=== PATIENT | female | born 2000 | race Caucasian/White ===

== ENCOUNTER → 2023-10-21 | Outpatient (CLI) | payer OTHER, SELFPAY ==
[2023-10-21 14:54] LABS: Absolute Lymphocyte Count 1.11 X10^3/uL (0.83-4.51); Absolute Neutrophil Count 4.9 X10^3/uL (2.0-7.7); Basophil# 0.02 X10^3/uL; Basophil% 0.3 % (0-1); Eosinophil# 0.06 X10^3/uL; Eosinophils% 0.9 % (0-5); Hematocrit 29.7 % (37-47); Hemoglobin 10.2 g/dL (12.0-15.0); Lymphocyte # 1.11 X10^3/ul (0.83-4.51); Lymphocyte % 16.8 % (19-41); Mean Corp Hgb Conc 34.3 g/dL (32-36); Mean Corpuscular Hgb 29.7 pg (27.0-32.0); Mean Corpuscular Volume 86.6 fL (81-99); Mean Platelet Vol. 9.8 fl (6.2-12.0); Monocyte# 0.49 X10^3/uL; Monocyte% 7.4 % (0-10); NRBC Flagged by Analyzer 0 % (0-5); Neutrophil % 74.3 % (47-70); Platelet Count 249 K/mm3 (150-450); RBC Distribution Width SD 43.6 fl (35.1-43.9); Red Blood Count 3.43 M/mm3 (4.2-5.4); White Blood Count 6.6 K/mm3 (4.4-11.0)
[2023-10-21 18:23] LABS: HIV - WCH Non-Reactive (Nonreactive); Hepatitis B Surface Antigen Non-Reactive (Nonreactive); Hepatitis C Antibody Non-Reactive (Nonreactive); Rubella IgG Equiv (Nonreactive); Syphilis Antibodies Non-reactive
[2023-10-24 22:06] LABS: Chlamydia By Nucleic Acid AMP Negative (Negative); Gonococcus By Nucleic Acid AMP Negative (Negative)
[2023-10-28 11:44] LABS: HPV Reflexed? NOT INDICATED
== END | disposition home or self-care (01) ==
PROVIDERS: Referring Provider Advanced Practice Midwife; Visit Provider Advanced Practice Midwife
DX: Z31.430 Encounter of female for testing for genetic disease carrier status for procreative management (principal); O09.90 Supervision of high risk pregnancy, unspecified, unspecified trimester; Z3A.00 Weeks of gestation of pregnancy not specified
CPT/HCPCS: 36415; 85025; 86703; 86762; 86780; 86803; 86850; 86900; 86901; 87086; 87340; 87491; 87591; 88175; G0145

== ENCOUNTER → 2024-02-14 | Outpatient (CLI) | payer OTHER, SELFPAY ==
[2024-02-14 12:17] LABS: Absolute Lymphocyte Count 1.38 X10^3/uL (0.83-4.51); Absolute Neutrophil Count 7.9 X10^3/uL (2.0-7.7); Basophil# 0.03 X10^3/uL; Basophil% 0.3 % (0-1); Eosinophil# 0.11 X10^3/uL; Eosinophils% 1.1 % (0-5); Hematocrit 28.9 % (37-47); Hemoglobin 9.8 g/dL (12.0-15.0); Lymphocyte # 1.38 X10^3/ul (0.83-4.51); Lymphocyte % 13.8 % (19-41); Mean Corp Hgb Conc 33.9 g/dL (32-36); Mean Corpuscular Hgb 32.2 pg (27.0-32.0); Mean Corpuscular Volume 95.1 fL (81-99); Mean Platelet Vol. 9.9 fl (6.2-12.0); Monocyte# 0.52 X10^3/uL; Monocyte% 5.2 % (0-10); NRBC Flagged by Analyzer 0 % (0-5); Neutrophil # 7.92 X10^3/uL (2.7-7.7); Platelet Count 239 K/mm3 (150-450); RBC Distribution Width CV 15.1 % (11.6-14.6); RBC Distribution Width SD 52.9 fl (35.1-43.9); Red Blood Count 3.04 M/mm3 (4.2-5.4)
[2024-02-14 12:36] LABS: Glucose Challenge Gest 1H 50g 132 mg/dL (70-140)
[2024-02-14 13:04] LABS: HIV - WCH Non-Reactive (Nonreactive); Syphilis Antibodies Non-reactive
== END | disposition home or self-care (01) ==
LOC: MFPLAB 09:53
PROVIDERS: Referring Provider Obstetrics & Gynecology; Visit Provider Obstetrics & Gynecology
DX: O09.90 Supervision of high risk pregnancy, unspecified, unspecified trimester (principal); Z13.1 Encounter for screening for diabetes mellitus; Z3A.00 Weeks of gestation of pregnancy not specified
CPT/HCPCS: 36415; 82950; 85025; 86703; 86780

== ENCOUNTER → 2024-03-30 | Outpatient (CLI) | payer OTHER, SELFPAY ==
[2024-03-30 17:09] LABS: Absolute Lymphocyte Count 1.29 X10^3/uL (0.83-4.51); Absolute Neutrophil Count 7.3 X10^3/uL (2.0-7.7); Basophil# 0.02 X10^3/uL; Basophil% 0.2 % (0-1); Eosinophil# 0.06 X10^3/uL; Eosinophils% 0.7 % (0-5); Hemoglobin 10.2 g/dL (12.0-15.0); Lymphocyte # 1.29 X10^3/ul (0.83-4.51); Lymphocyte % 14.2 % (19-41); Mean Corpuscular Volume 97.1 fL (81-99); Mean Platelet Vol. 10.4 fl (6.2-12.0); Monocyte% 4.4 % (0-10); NRBC Flagged by Analyzer 0 % (0-5); Neutrophil # 7.27 X10^3/uL (2.7-7.7); Neutrophil % 79.9 % (47-70); Platelet Count 217 K/mm3 (150-450); RBC Distribution Width CV 15.8 % (11.6-14.6); RBC Distribution Width SD 55.1 fl (35.1-43.9); Red Blood Count 3.09 M/mm3 (4.2-5.4); White Blood Count 9.1 K/mm3 (4.4-11.0)
== END | disposition home or self-care (01) ==
LOC: BWCLAB 13:21
PROVIDERS: Obstetrics & Gynecology; Referring Provider Advanced Practice Midwife; Visit Provider Advanced Practice Midwife
DX: O99.019 Anemia complicating pregnancy, unspecified trimester (principal); Z3A.00 Weeks of gestation of pregnancy not specified
CPT/HCPCS: 36415; 85025

== ENCOUNTER → 2024-04-12 | Outpatient (CLI) | payer OTHER, SELFPAY | END | disposition home or self-care (01) | PROVIDERS: Referring Provider Obstetrics & Gynecology; Visit Provider Obstetrics & Gynecology | DX: O09.92 Supervision of high risk pregnancy, unspecified, second trimester (principal); Z3A.00 Weeks of gestation of pregnancy not specified | CPT/HCPCS: 87077; 87081; 87186 ==

== ENCOUNTER → 2024-04-19 | Outpatient (CLI) | payer OTHER, SELFPAY ==
[2024-04-19 13:20] LABS: ROM Internal Control Test YES-OK TO RESULT pt. (Internal QC); ROM Patient Test Negative (Negative)
[2024-04-19 13:21] LABS: Record Kit Lot#, ROM+ K2871
== END | disposition home or self-care (01) ==
LOC: LABSPEC 12:49
PROVIDERS: Referring Provider Obstetrics & Gynecology; Visit Provider Obstetrics & Gynecology
DX: O26.899 Other specified pregnancy related conditions, unspecified trimester (principal); N89.8 Other specified noninflammatory disorders of vagina; Z3A.00 Weeks of gestation of pregnancy not specified; O99.891 Other specified diseases and conditions complicating pregnancy
CPT/HCPCS: 84112

== ENCOUNTER 2024-05-09 14:30 | Outpatient (CLI) | payer OTHER, SELFPAY ==
--- NOTE | 2024-05-09 14:50 | US_ITS ---
PROCEDURE: OB LIMITED WITH BIOMETRICS 05/09/2024 REASON FOR EXAM: DECREASE IN FUNDAL HEIGHT TODAY AT OB APPT TECHNIQUE: High resolution obstetric ultrasound performed using a 2D transducer. Standard views obtained, including biometry, anatomy survey, and Doppler studies. COMPARISON: None FINDINGS Number: 1 Position: Vertex Placental Position: Anterior Placental Abnormalities: No evidence of previa. DIMENSIONS: Biparietal Diameter: 8.6 cm/34 weeks 6 days Head Circumference: 32.3 cm/36 weeks 4 days Abdominal Circumference: 35.6 cm/39 weeks 4 days Femur Length: 7.4 cm/37 weeks 5 days ESTIMATED WEIGHT: 3456 g ESTIMATED WEIGHT PERCENTILE (24+ weeks): 37% ESTIMATED GESTATIONAL AGE: Baseline: 40 weeks 0 days By Ultrasound: 37 weeks 1 day ESTIMATED DATE OF DELIVERY: Baseline: 05/09/2024 By Ultrasound: 05/29/2024 BIOPHYSICAL ASSESSMENT: Amniotic Fluid Volume: Subjectively normal. Amniotic Fluid Index: 9.7 (8-24 cm normal range) Cardiac Motion: 143 beats per minute. (Average) Trunk and Limb Motion: Present. MATERNAL ANATOMY: Adnexa: Neither maternal ovary is successfully identified. Cervical Length (if measured): Not clearly visualized. US/OB Limited With Biometrics IMPRESSION: Single viable intrauterine fetus with a gestational age of 37 weeks 1 day and E DD of 05/29/2024. Reading Location: [facility]
[2024-05-09 15:29] VITALS: RESP 13; TEMP 36.7; O2SAT 100; BMI 30.2
[2024-05-09 15:29] LABS: ROM Internal Control Test YES-OK TO RESULT pt. (Internal QC); ROM Patient Test Negative (Negative); Record Kit Lot#, ROM+ K3294
--- NOTE | 2024-05-09 16:59 | OB.TRI.PN_ITS ---
Progress Notes Date of Service: 05/09/24 Progress Note: Patient presents for triage evaluation secondary to dec fm and low FH FHT: 140 Moderate variability reactive no decelerations category I tracing [place]: irregular Contractions Assessment and plan: 40 weeks amniotic membranes intact uterine size date discrepancy n growth US Reactive NST, reassuring maternal and status patient discharged to home to follow-up as scheduled See problem list details for additional plan information. Laboratory Studies: Laboratory Tests 05/09/24 Range/Units 14:50 Vag Amniotic Fld Detect Negative (Negative) Charges/Coding Procedures Urinary/Genital 52xxx-59xxx: 97725-72 non-stress test Interp
[2024-05-09 19:39] VITALS: BP 124/69; PULSE 85; RESP 16; TEMP 36.7
== END 2024-05-09 20:25 | disposition home or self-care (01) ==
LOC: WPOUT 14:32 → WP 14:33
PROVIDERS: Referring Provider Obstetrics & Gynecology; Visit Provider Obstetrics & Gynecology
DX: O36.8130 Decreased fetal movements, third trimester, not applicable or unspecified (principal); Z3A.40 40 weeks gestation of pregnancy
CPT/HCPCS: 59025; 59050; 76816; 84112; 99221; G0378

== ENCOUNTER → 2024-05-09 | Outpatient (CLI) | payer OTHER, SELFPAY ==
[2024-05-09 15:29] LABS: ROM Internal Control Test YES-OK TO RESULT pt. (Internal QC); ROM Patient Test Negative (Negative); Record Kit Lot#, ROM+ K3294
== END | disposition home or self-care (01) ==
PROVIDERS: Referring Provider Obstetrics & Gynecology; Visit Provider Obstetrics & Gynecology
DX: O26.899 Other specified pregnancy related conditions, unspecified trimester (principal); Z3A.00 Weeks of gestation of pregnancy not specified; O34.60 Maternal care for abnormality of vagina, unspecified trimester; N89.9 Noninflammatory disorder of vagina, unspecified
CPT/HCPCS: 84112

== ENCOUNTER 2024-05-16 07:00 | Inpatient (IN) | payer OTHER, SELFPAY ==
[2024-05-16] VITALS (59 sets, daily range): BP systolic 102–141; BP diastolic 54–84; PULSE 65–123; RESP 16–18; TEMP 36.1–36.7; O2SAT 91–100; BMI 31.0
[2024-05-16] MEDS: Lactated Ringers 1,000 ML 50 ML IV ×2 (08:10→16:39)
[2024-05-16 08:24] LABS: Absolute Lymphocyte Count 1.63 X10^3/uL (0.83-4.51); Absolute Neutrophil Count 8.3 X10^3/uL (2.0-7.7); Basophil# 0.04 X10^3/uL; Basophil% 0.4 % (0-1); Eosinophil# 0.09 X10^3/uL; Eosinophils% 0.8 % (0-5); Hematocrit 28.6 % (37-47); Lymphocyte # 1.63 X10^3/ul (0.83-4.51); Lymphocyte % 15.2 % (19-41); Mean Corpuscular Hgb 33.2 pg (27.0-32.0); Mean Platelet Vol. 9.9 fl (6.2-12.0); Monocyte# 0.57 X10^3/uL; Monocyte% 5.3 % (0-10); NRBC Flagged by Analyzer 0 % (0-5); Neutrophil # 8.33 X10^3/uL (2.7-7.7); Neutrophil % 77.8 % (47-70); Platelet Count 168 K/mm3 (150-450); RBC Distribution Width CV 14.8 % (11.6-14.6); RBC Distribution Width SD 50.8 fl (35.1-43.9); Red Blood Count 3.01 M/mm3 (4.2-5.4); White Blood Count 10.7 K/mm3 (4.4-11.0)
--- NOTE | 2024-05-16 08:28 | HP.PCM.OB_ITS ---
HPI - General General Date of Admission: 05/16/24 HPI Narrative ROSE MARY VARGAS, is a 24 F who presents for IOL secondary to postdates. Maternal Data Information ESTELA Calculator Estimated Delivery Date Method Current WG Current Estimate 05/09/24 Ultrasound #1 41w 0d Other Estimates 05/11/24 LMP (Certain) 40w 5d [facility] Home Medications ?Medication ?Instructions ?Recorded ?Last Taken ?Type multivit-min no.71-iron fum 28 1 cap PO DAILY pregnanc y 10/19/23 05/16/24 06:00 History mg-folate no.1 1 mg-dha 300 mg 1 cap capsule (PNV-[place]) ferrous gluconate 324 mg (37.5 mg 324 mg PO QDAY anemi a #90 tabs 02/14/24 05/15/24 17:00 Rx iron) tablet budesonide 90 mcg/actuation breath 2 inh inhalation BI D asthma #1 ea 03/14/24 Unknown Rx activated powder inhaler Allergy/AdvReac Type Severity Reaction Status Date / Time No Known Allergies Allergy Verified 05/16/24 07:53 Family History Grandmother Cancer Maternal- Gma's Twin Sister Brain Cancer Normal stillborn 30wks gestation Surgical History History of tonsillectomy and adenoidectomy Social History adopted: No household members: spouse current occupational status: employed 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 [employer] current occupational exposures/hazards: No pets and animals: Yes (Avoid litter box) pets and animals: cat(s) and dog(s) history of recent travel: Yes ( and [place]-August) out of state: Yes out of country: Yes sexually active: Yes Smoking Status: Former smoker quit date: 04/07/21 Electronic Cigarette Use: with nicotine alcohol intake: current alcohol intake frequency: holidays/special occasions only details: Not while substance use type: does not use well-balanced diet: daily or most days caffeine: No eating out: 1-3 times/week during the past year weight has: remained stable what type of physical activity do you participate in: none delphine/mandaen: Tenriism seatbelt use: sometimes do you feel safe at home: Yes additional social history: [employer] History 1 Elective abortions Hx Para 0 Spontaneous abortions Hx # Term Pregnancies Ectopic pregnancies Hx # Pregnancies Multiple births # of living children Visit Details Expected Delivery Route/Plan Labor Preferences- CB/BF classes: enc labor support person: [place] labor intervention preferences: [] pain management options preferred: limited if possible cut cord/dad catch: yes : yes PP control planned: discussed discussed possible routes of delivery and associated risks: [] special requests: [] Plans Covid status: [] Flu vaccine: given Tdap vaccine: [] Rhogam: NA LARC form signed: yes Problem list reviewed and updated with the most current plan of care details and appropriate orders placed. Relevant counseling for the gestational age provided. Continue routine care and follow up unless otherwise noted in visit notes/problem list details OB Flowsheet Initial Weight: 141 lb Date -?-?-?-?-?-?-?-?-?-?-?-?- EGA Weight BP Urine Prot -?-?-?-?-?-?-?-?-?-?-?-?- Glucose FHR FuHt Pres Dilation -?-?-?-?-?-?-?-?-?-?-?-?- Effaced St Visit Note 10/21/23 -?-?-?-?-?-?-?-?-?-?-?-?- 11w 2d 141 lb (+0 oz) 128/75 -?-?-?-?-?-?--?-?-?-?-?-?- 168 -?-?-?-?-?-?-?-?-?-?-?-?- KW- CRL cons wit h dates. Accepts NIPT and carrier. 11/18/23 -?-?-?-?-?-?-?-?-?-?-?-?- 15w 2d 143 lb (+2 lb) 109/72 Negative -?-?-?-?-?-?-?-?-?-?-?-?- Negative 150 -?-?-?-?-?-?-?-?-?-?-?-?- SM- co dysuria, culture sent 12/23/23 -?-?-?-?-?-?-?-?-?-?-?-?- 20w 2d 148 lb (+7 lb) 124/77 Negative -?-?-?-?-?-?-?-?-?-?-?-?- Negative 156 -?-?-?-?-?-?-?-?-?-?-?-?- LC- no vb/crampi ng. normal anatomy scan. sciatic discomfort- stretches recommended. 01/20/24 -?-?-?-?-?-?-?-?-?-?-?-?- 24w 2d 155 lb 6 oz (+14 lb 6 oz) 116/75 Negative -?-?-?-?-?-?-?-?-?-?-?-?- Negative 160 26 -?-?-?-?-?-?-?-?-?-?-?-?- JV- no lof, vagi nal bleeding, or dec fm. no complaints. 02/14/24 -?-?-?-?-?-?-?-?-?-?-?-?- 27w 6d 160 lb (+19 lb) 136/85 Negative -?-?-?-?-?-?-?-?-?-?-?-?- Negative 154 27 -?-?-?-?-?-?-?-?-?-?-?-?- -Good FM. Had one episode of pink tinged fluid with wiping 2 wk ago when in [place]. None since and reassured. Larc. 03/02/24 -?-?-?-?-?-?-?-?-?-?-?-?- 30w 2d 162 lb (+21 lb) 122/82 Negative -?-?-?-?-?-?-?-?-?-?-?-?- Negative 150 30 -?-?-?-?-?-?-?-?-?-?-?-?- KW- no vb/lof/ct x. good fm declines tdap. pepcid for acid reflux. 03/14/24 -?-?-?-?-?-?-?-?-?-?-?-?- 32w 0d 162 lb 8 oz (+21 lb 8 oz) 121/75 Negative -?-?-?-?-?-?-?-?-?-?-?-?- Negative 150 31 -?-?-?-?-?-?-?-?-?-?-?-?- SM- discussed an d asthma symptoms have worsened over the last months, using rescue inhaler daily and having SOB. will need to find PCP SELINA and started on budesonide n the meantime. 03/30/24 -?-?-?-?-?-?-?-?-?-?-?-?- 34w 2d 167 lb 4 oz (+26 lb 4 oz) 136/86 Negative -?-?-?-?-?-?-?-?-?-?-?-?- Negative 150 33 -?-?-?-?-?-?-?-?-?-?-?-?- KW- no vb/lof. g ood fm and noting some BH ctx. CBC today 04/12/24 -?-?-?-?-?-?-?-?-?-?-?-?- 36w 1d 170 lb 4 oz (+29 lb 4 oz) 112/74 Negative -?-?-?-?-?-?-?-?-?-?-?-?- Negative 140 36 Cephalic 0 .5 -?-?-?-?-?-?-?-?-?-?-?-?- SM- n ovb lof go od fm nor egular ctx gbs collected 04/19/24 -?-?-?-?-?--?-?-?-?-?-?-?- 37w 1d 172 lb 8 oz (+31 lb 8 oz) 119/77 Negative -?-?-?-?-?-?-?-?-?-?-?-?- Negative 146 37 Cephalic 0 .5 -?--?-?-?-?-?-?-?-?-?-?-?- JV- no lof, vagi nal bleeding, or dec fm. JV- no, vaginal bleeding, or dec fm. has some leaking fluid. JV- no, vaginal bleeding, or dec fm. has some leaking fluid.ROM + was negative 04/25/24 -?-?-?-?-?-?-?-?-?-?-?-?- 38w 0d 173 lb 6 oz (+32 lb 6 oz) 117/69 Negative -?-?-?-?-?-?-?-?-?-?-?-?- Negative 140 38 Cephalic 1 -?-?-?-?-?-?-?-?-?-?-?-?- SM- no vb lof go od fm n oreuglar ctx 05/01/24 -?-?-?-?-?-?-?-?-?-?-?-?- 38w 6d 176 lb (+35 lb) 114/76 Negative -?-?-?-?-?-?-?-?-?-?-?-?- Negative 130 40 Cephalic 1 -?-?-?-?-?-?-?-?-?-?-?-?- 30 -2 KW- no vb/ lof/ctx. good fm. discussed EPO and IOL at 41 weeks 05/09/24 -?-?-?-?-?-?-?-?-?-?-?-?- 40w 0d 178 lb 2 oz (+37 lb 2 oz) 131/82 -?-?-?-?-?-?-?-?-?-?-?-?- 145 37 Cephalic 1 -?-?-?-?-?-?-?-?-?-?-?-?- 30 -2 SM- no vb lof some dec fm no reuglar ctx fundal height dropped recommend US now and rom plus sent discussed FM precautions NST FHR Rate Baby A Baseline: 130 Variability:: Moderate Accelerations:: 15 x 15 Decelerations:: None NST Reactive:: Yes FHR Category:: Category I Uterine Activity:: irregular ROS Constitutional Constitutional: Reports systems reviewed and no addt'l complaints, except as documented Eyes Eyes: Denies change in vision ENT HEENT: Reports systems reviewed and no addt'l complaints, except as documented; Denies headache(s) Cardiovascular Cardiovascular: Reports systems reviewed and no addt'l complaints, except as documented; Denies chest pain or dyspnea Respiratory/Chest Respiratory/Chest: Reports systems reviewed and no addt'l complaints, except as documented Gastrointestinal Gastrointestinal: Reports systems reviewed and no addt'l complaints, except as documented; Denies abdominal pain Genitourinary Genitourinary: Reports systems reviewed and no addt'l complaints, except as documented, contractions Details: present (irregular) and movement Details: present; Denies dysuria or genital lesions Musculoskeletal Musculoskeletal: Reports systems reviewed and no addt'l complaints, except as documented Neurologic Neurologic: Reports systems reviewed and no addt'l complaints, except as documented Endocrine Endocrinology: Reports systems reviewed and no addt'l complaints, except as documented Vital Signs Vital Signs Vital Signs: Weight Weight: 180 lb 15.992 oz Body Mass Index (BMI) 31.0 Physical Exam Const alert, oriented x3, no apparent distress and healthy appearing HEENT normocephalic and moist oral mucous membranes Head and Scalp: atraumatic Neck full ROM, no lymphadenopathy, supple and thyroid normal General: trachea midline Lymph Lymphatic: no lymphadenopathy noted Chest inspection of chest normal Resp normal respiratory effort Cardio regular rate GI soft to palpation and non-tender GI Narrative: gravid Inspection: gravid external exam normal Manual OB Exam: estimated gestational size appropriate, presentation cephalic, dilated, effaced and station Extremity normal to inspection General Extremity: Negative for edema Skin no rashes or lesions noted Neuro no focal motor deficits and deep tendon reflexes 2+ bilaterally Motor Exam: strength 5/5 throughout and clonus absent Psych mental status grossly normal Labs Labs Labs: Blood Type O POSITIVE Antibody Screen NEGATIVE Hct 28.6 % (37-47) L Hgb 10.0 g/dL (12.0-15.0) L Obstetrics Ultrasound Syphilis Total Ab Non-reactive VZV IgG Antibody 219 index (Immune >165) Rubella IgG Antibody Equiv (Nonreactive) Hep Bs Antigen Non-Reactive (Nonreactive) Hepatitis C Antibody Non-Reactive (Nonreactive) Chlamydia DNA (SHARMILA) Negative (Negative) N.gonorrhoeae DNA (SHARMILA) Negative (Negative) HIV 1&2 Antibody Non-Reactive (Nonreactive) Glucose 1 Hr 50 gm 132 mg/dL (70-140) Assessment & Plan (1) Uterine size-date discrepancy, third trimester: COMMENT: nl growth and lakia (2) GBS (group B Streptococcus carrier), +RV culture, currently : COMMENT: PCN in labor (3) Anemia affecting : (4) Rubella non-immune status, antepartum: COMMENT: offer MMR PP (5) Supervision of high-risk : QUALIFIERS: Trimester: second trimester Qualified Code(s): O09.92 - Supervision of high risk , unspecified, second trimester COMMENT: PRR , ESTELA 05/11/24, girl [place] (6) : QUALIFIERS: Weeks of gestation: 40 weeks Qualified Code(s): Z3A.40 - 40 weeks gestation of COMMENT: NIPT low risk, carrier neg. , normal anatomy (7) Asthma: COMMENT: moderate persistent, needs to establish with PCP, will start on daily budesonide. albuterol rescue. (8) Encounter for induction of labor: (9) Post-dates : PLAN: Plan Patient presents IOL, plan management for with pit fb. Pain management: plans epidural. GBS pos plan pcn. Management of any complications: none I have reviewed the [facility] and made any clinically relevant updates.
[2024-05-16] MEDS: Penicillin G Pot 5,000,000 UNITS in 0.9% Normal Saline (100mL MB+) 100 ML 150 UNITS IV (08:36)
[2024-05-16] MEDS: Oxytocin 15 Units/NS 250ml 15 UNITS/250 ML IV.SOLN 2 UNITS IV (08:37)
[2024-05-16] MEDS: 0.9% Normal Saline Single 100 ML IV.SOLN. INTRA-UTER (08:40)
[2024-05-16 12:10] LABS: Syphilis Antibodies Nonreactive (Nonreactive)
[2024-05-16] MEDS: Penicillin G 3,000,000 Units 50 ML 100 UNITS IV ×2 (12:42→18:25)
[2024-05-16] MEDS: Ondansetron 4 MG/2 ML Vial IV (16:39)
[2024-05-16] MEDS: 0.9% Saline Lock 10 ML Syringe IV (16:39)
[2024-05-16] MEDS: fentaNYL-bupivacaine (epidural) 100 ML BAG EPIDURAL (17:20)
[2024-05-16] MEDS: Lactated Ringers 1,000 ML 200 ML IV (17:40)
[2024-05-16] MEDS: Oxytocin 15 Units/NS 250ml 15 UNITS/250 ML IV.SOLN 83 UNITS IV (21:41)
--- NOTE | 2024-05-16 21:42 | EX.PCM.OBVAG ---
Assessment & Plan (1) Vaginal delivery: COMMENT: SM IOL postdates 41 al (2) Post-dates : (3) Encounter for induction of labor: (4) Uterine size-date discrepancy, third trimester: COMMENT: nl growth and lakia (5) GBS (group B Streptococcus carrier), +RV culture, currently : COMMENT: PCN in labor (6) Anemia affecting : (7) Rubella non-immune status, antepartum: COMMENT: offer MMR PP (8) Supervision of high-risk : QUALIFIERS: Trimester: second trimester Qualified Code(s): O09.92 - Supervision of high risk , unspecified, second trimester COMMENT: PRR , ESTELA 05/11/24, girl [place] (9) : QUALIFIERS: Weeks of gestation: 40 weeks Qualified Code(s): Z3A.40 - 40 weeks gestation of COMMENT: NIPT low risk, carrier neg. , normal anatomy (10) Asthma: COMMENT: moderate persistent, needs to establish with PCP, will start on daily budesonide. albuterol rescue. Maternal Data Information ESTELA Calculator Estimated Delivery Date Method Current WG Current Estimate 05/09/24 Ultrasound #1 41w 0d Other Estimates 05/11/24 LMP (Certain) 40w 5d Vaginal Delivery Maternal Presentation Maternal Presentation: see assessment and plan Vaginal Delivery Information Procedure Performed: Spontaneous Vaginal Delivery Surgeon/Practitioner: Lyla Siddiqi Date of Procedure: 05/16/24 Pre-Procedure Diagnosis: see assessment and plan Post-Procedure Diagnosis: same Type of anesthesia: Epidural Estimated Blood Loss: 300 Findings Description of procedure: Patient began pushing and delivered the head in the ANDREW presentation. The head was delivered atraumatically and a loose nuchal cord ?1 was identified and easily reduced over the 's head. The anterior and posterior shoulders delivered without complication followed by the rest of the and the infant was placed on the maternal abdomen. Delayed cord clamping was employed for approximately 60 seconds. Cord was clamped and cut and gentle traction was applied to the cord and the placenta delivered spontaneously immediately following it was noted to be intact with three-vessel cord. The perineum and vagina were inspected and noted to have no significant laceration. EBL was 300. Patient and tolerated delivery well. Presentation: Vertex Placental Delivery Description: Spontaneous Specimen collected: Yes Description of specimen(s) removed: placenta Therapeutic Radiologist solid propellant processor: No Post Vaginal Deli Medications given after delivery: Other (pitocin) Complication Complications: No Multi Select Codes Urinary/Genital Urinary/Genital CPT Codes: 83893 Vaginal Delivery [facility]
--- NOTE | 2024-05-16 21:45 | PCM.DC ---
Discharge Instructions Diet Discharge Diet: No restrictions DC O2, CPAP, BIPAP needs Home O2 Discharge instructions: No Dressing / Incision Discharge Activity: Return to Normal Activity, May Not Drive (while taking narcotic pain medications.) and May Shower May resume sexual activity in: 4-6 weeks Dressing / Incision Call your doctor if your incision/area has: Continuous Slow Oozing, Sudden Increased Bleeding, Increased Pain/ Swelling, Increased Redness and Foul Smelling Discharge Follow Up Care Please Follow Up With: Lyla Siddiqi MD When: Call [phone] to make an appointment with your doctor in 6 weeks. If you had elevated blood pressure or 4th degree laceration, you will need to be seen in 2 weeks. Test Results: Test results from this visit will be discussed in further detail at your follow-up appointment, if applicable. Discharge Plan Admission Admit Date/Time: 05/16/24 07:00 Attending Provider: Lyla Siddiqi Primary Care Provider: Care Physician,Tory Primary Discharge Orders/Prescriptions Prescriptions: No Action PNV-[place] 28-1-300 mg capsule 1 cap PO DAILY budesonide 90 mcg/actuation aerosol powdr breath activated 2 inh inhalation BID Qty: 1 12RF ferrous gluconate 324 mg (37.5 mg iron) tablet 324 mg PO QDAY Qty: 90 1RF Referrals / Follow Up: Care Physician,No Primary [Primary Care Provider] - Disposition Disposition (needs filled in before D/C Order can be placed): Home, Self Care
[2024-05-16] MEDS: Acetaminophen 500 MG Tablet 1000 MG PO (22:17)
[2024-05-17] VITALS (9 sets, daily range): BP systolic 115–126; BP diastolic 62–82; PULSE 75–93; RESP 16; TEMP 36.3–37.4; O2SAT 79–99
--- NOTE | 2024-05-17 07:11 | PCM.PN.OB ---
Subjective Subjective Patient doing well without complaints. Tolerating PO. Ambulating and voiding without difficulty. Feeding well. Denies chest pain, shortness of breath, calf pain/swelling, fevers, chills, lightheadedness. Objective Data Objective Data Vital Signs: Vital Signs Temp Pulse Resp BP Pulse Ox O2 Del Method 97.3 F L 89 16 115/62 99 Room Air 05/17/24 03:10 05/17/24 03:10 05/17/24 03:10 05/17/24 03:10 05/17/24 03:10 05/17/24 03:10 Oxygen Delivery Method Room Air Weight: 180 lb 15.992 oz Body Mass Index (BMI) 31.0 Intake & Output: Intake and Output for Last 24 Hours 05/15/24 05/16/24 05/17/24 23:59 23:59 23:59 Intake Total 3093.67 / 3093.67 250 / 250 Output Total 300 / 300 1300 / 1300 Balance 2793.67 / 2793.67 -1050 / -1050 Lab / Micro Data 05/16/24 08:10 Labs: Laboratory Results - last 24 hr 05/16/24 08:10: WBC 10.7, RBC 3.01 L, Hgb 10.0 L, Hct 28.6 L, MCV 95.0, MCH 33.2 H, MCHC 35.0, RDW Std Deviation 50.8 H, RDW Coeff of [place] 14.8 H, Plt Count 168, MPV 9.9, Immature Gran % (Auto) 0.500, Neut % (Auto) 77.8 H, Lymph % (Auto) 15.2 L, [place] % (Auto) 5.3, Eos % (Auto) 0.8, Baso % (Auto) 0.4, Absolute Neuts (auto) 8.3 H, Absolute Lymphs (auto) 1.63, Nucleated RBC % 0, Syphilis Total Ab Nonreactive, Blood Type O POSITIVE, Antibody Screen NEGATIVE ROS Constitutional Constitutional: Denies chills, fatigue, fever(s), poor appetite or weakness Eyes Eyes: Denies blurry vision, change in vision, seeing flashes or spots in vision ENT HEENT: Denies dizziness, headache(s), loss taste/smell or sore throat Cardiovascular Cardiovascular: Denies chest pain, dizziness, dyspnea, irregular heart rhythm, palpitations or rapid heart rate Respiratory/Chest Respiratory/Chest: Denies chest tightness, cough, dyspnea or breast pain Gastrointestinal Gastrointestinal: Denies abdominal pain, constipation or vomiting Genitourinary Genitourinary: Denies dysuria or flank pain Musculoskeletal Musculoskeletal: Denies difficulty walking, joint pain, limited range of motion or numbness Neurologic Neurologic: Denies abnormal movements, abnormal speech, dizziness, numbness, seizure-like activity or syncope Psychiatric Psychiatric: Denies anxiety, behavioral changes, change in appetite, confusion, depression or suicidal thoughts Physical Exam Const alert, oriented x3 and no apparent distress General Appearance: cooperative and comfortable Resp normal respiratory effort Cardio regular rate GI normal to inspection, nondistended, normoactive bowel sounds GI Narrative: uterus is firm below umbilicus Palpation: soft Back/Spine no CVA tenderness and thoraco-lumbar ROM normal Extremity normal to inspection, no clubbing, cyanosis or edema, no calf tenderness and no pedal edema Psych mental status grossly normal, thought process normal, cooperative, affect normal, speech normal, activity/motor behavior normal, denies homicidal ideation and denies suicidal ideation Assessment & Plan (1) Vaginal delivery: COMMENT: SM IOL postdates 41 al (2) Post-dates : (3) Encounter for induction of labor: (4) Uterine size-date discrepancy, third trimester: COMMENT: nl growth and lakia (5) GBS (group B Streptococcus carrier), +RV culture, currently : COMMENT: PCN in labor (6) Anemia affecting : (7) Rubella non-immune status, antepartum: COMMENT: offer MMR PP (8) Supervision of high-risk : QUALIFIERS: Trimester: second trimester Qualified Code(s): O09.92 - Supervision of high risk , unspecified, second trimester COMMENT: PRR , ESTELA 05/11/24, girl [place] (9) : QUALIFIERS: Weeks of gestation: 40 weeks Qualified Code(s): Z3A.40 - 40 weeks gestation of COMMENT: NIPT low risk, carrier neg. , normal anatomy (10) Asthma: COMMENT: moderate persistent, needs to establish with PCP, will start on daily budesonide. albuterol rescue. PLAN: Plan s/p PPD # 1 1. routine post delivery care 2. breast feeding- support given 3. rh positive 4. rubella non- immune- to vaccinate prior to discharge
[2024-05-18 01:20] VITALS: BP 120/74; PULSE 81; RESP 16; TEMP 36.7; O2SAT 98
[2024-05-18 01:22] VITALS: BP 120/74; PULSE 74
[2024-05-18 09:03] VITALS: BP 121/72; PULSE 78; RESP 18; TEMP 36.7; O2SAT 97
--- NOTE | 2024-05-18 09:22 | PCM.DC.SUM ---
Providers Date of Admission: 05/16/24 Primary Care Physician: No Primary Care Phys Reason For Visit: VAG Diagnosis Discharge Diagnosis (1) Vaginal delivery: Status: Acute Code(s): O80 - Encounter for full-term uncomplicated delivery (2) Post-dates : Status: Acute Code(s): O48.0 - Post-term (3) Encounter for induction of labor: Status: Acute Code(s): Z34.90 - Encounter for supervision of normal , unspecified, unspecified trimester (4) Uterine size-date discrepancy, third trimester: Status: Acute Code(s): O26.843 - Uterine size-date discrepancy, third trimester (5) GBS (group B Streptococcus carrier), +RV culture, currently : Status: Acute Code(s): O99.820 - Streptococcus B carrier state complicating (6) Anemia affecting : Status: Acute Code(s): O99.019 - Anemia complicating , unspecified trimester (7) Rubella non-immune status, antepartum: Status: Acute Code(s): O09.899 - Supervision of other high risk pregnancies, unspecified trimester; Z28.39 - Other underimmunization status (8) Supervision of high-risk : Status: Acute Code(s): O09.90 - Supervision of high risk , unspecified, unspecified trimester Qualifiers: Trimester: second trimester Qualified Code(s): O09.92 - Supervision of high risk , unspecified, second trimester (9) : Status: Acute Code(s): Z34.90 - Encounter for supervision of normal , unspecified, unspecified trimester Qualifiers: Weeks of gestation: 40 weeks Qualified Code(s): Z3A.40 - 40 weeks gestation of (10) Asthma: Status: Acute Code(s): J45.909 - Unspecified asthma, uncomplicated Plan s/p PPD # 1 1. routine post delivery care 2. breast feeding- support given 3. rh positive 4. rubella non- immune- to vaccinate prior to discharge Medications at Discharge Home Medications multivit-min no.71-iron fum 28 mg-folate no.1 1 mg-dha 300 mg capsule (PNV-[place]) 1 cap PO DAILY 10/19/23 ferrous gluconate 324 mg (37.5 mg iron) tablet 324 mg PO QDAY anemia #90 tabs 02/14/24 budesonide 90 mcg/actuation breath activated powder inhaler 2 inh inhalation BID asthma #1 ea 03/14/24 Hospital Course Operations None Procedures - (vaginal delivery ) Summary of Care Provided Minutes Spent on Discharge: 10 Hospital Course: The patient was admitted on 05/16/24 for IOL. She delivered vaginally on 05/16/24. She recovered well on post day #1 and required minimal assistance with breast feeding and pain management. On day #2 she was discharged to home in stable condition. Physical Exam Const alert, oriented x3 and no apparent distress General Appearance: cooperative and comfortable Resp normal respiratory effort Cardio regular rate GI normal to inspection, nondistended, normoactive bowel sounds GI Narrative: uterus is firm below umbilicus Palpation: soft Back/Spine no CVA tenderness and thoraco-lumbar ROM normal Extremity normal to inspection, no clubbing, cyanosis or edema, no calf tenderness and no pedal edema Psych mental status grossly normal, thought process normal, cooperative, affect normal, speech normal, activity/motor behavior normal, denies homicidal ideation and denies suicidal ideation Weight / BMI Weight Weight: 180 lb 15.992 oz Body Mass Index (BMI) 31.0 ABG / Lab / Microbiology Data 05/16/24 08:10 D/C Instructions Discharge Diet: No restrictions May resume sexual activity in: 4-6 weeks Call your doctor if your incision/area has: Continuous Slow Oozing, Sudden Increased Bleeding, Increased Pain/ Swelling, Increased Redness and Foul Smelling Discharge DC O2, CPAP, BIPAP Needs Home O2 Discharge instructions: No Please Follow Up With: Lyla Siddiqi MD When: Call [phone] to make an appointment with your doctor in 6 weeks. If you had elevated blood pressure or 4th degree laceration, you will need to be seen in 2 weeks. Meaningful Use Info Meaningful Use Meaningful Use Diagnoses (Choose all that apply): None applicable Ischemic Stroke Statin Dosing Therapy Reference: STATIN DOSE THERAPY REFERENCE: * Patients > 75 years receive moderate or high dose statin therapy. * Patients 75 years or YOUNGER should receive HIGH intensity statin dose unless contraindicated. You will be required to document reason for non-treatment if statin daily dose does not meet guidelines. HIGH DOSE STATIN THERAPY DAILY Atorvastatin > than or = to 40 mg Rosuvastatin > than or = to 20 mg Amlodipine + Atorvastatin > than or = to 2.5/40 mg Ezetimibe + Simvastatin 10/80 mg Simvastatin 80mg Discharge Plan Admission Admit Date/Time: 05/16/24 07:00 Primary Reason for Your Visit: vaginal delivery Attending Provider: Lyla Siddiqi Primary Care Provider: Care Physician,No Primary Discharge Orders/Prescriptions Prescriptions: Continued PNV-[place] 28-1-300 mg capsule 1 cap PO DAILY budesonide 90 mcg/actuation aerosol powdr breath activated 2 inh inhalation BID Qty: 1 12RF ferrous gluconate 324 mg (37.5 mg iron) tablet 324 mg PO QDAY Qty: 90 1RF Referrals / Follow Up: Care Physician,No Primary [Primary Care Provider] - Disposition Disposition (needs filled in before D/C Order can be placed): Home, Self Care
--- NOTE | 2024-05-22 10:10 | NURSING ---
Here for a consult. Patient states she is doing well denies any headaches, visual changes, flu like symptoms, or baby blues. States her bleeding is minimal and that she is taking Tylenol and Ibuprofen for discomfort. States her milk is in and the is nursing well with the nipple shield. Denies any questions or concern at this time.
== END 2024-05-18 12:50 | disposition home or self-care (01) | DRG 807 ==
PROVIDERS: Admitting Provider Obstetrics & Gynecology; Referring Provider Obstetrics & Gynecology; Visit Provider Obstetrics & Gynecology
DX: O48.0 Post-term pregnancy (principal); Z37.0 Single live birth; J45.40 Moderate persistent asthma, uncomplicated; O26.843 Uterine size-date discrepancy, third trimester; O99.52 Diseases of the respiratory system complicating childbirth; O99.02 Anemia complicating childbirth; Z3A.41 41 weeks gestation of pregnancy; O99.820 Streptococcus B carrier state complicating pregnancy; O99.824 Streptococcus B carrier state complicating childbirth; O69.81X0 Labor and delivery complicated by cord around neck, without compression, not applicable or unspecified; Z79.51 Long term (current) use of inhaled steroids; Z87.891 Personal history of nicotine dependence
CPT/HCPCS: 59025; 59050; 85025; 86780; 86850; 86900; 86901; 99221; A4216; G0378; J2405

== ENCOUNTER → 2024-06-28 | Outpatient (CLI) | payer OTHER, SELFPAY | END | disposition home or self-care (01) | LOC: LABSPEC 15:00 | PROVIDERS: Referring Provider Obstetrics & Gynecology; Visit Provider Obstetrics & Gynecology | DX: R30.0 Dysuria (principal) | CPT/HCPCS: 87086; 87088 ==

== ENCOUNTER 2024-07-12 15:37 | Outpatient (CLI) | payer OTHER, SELFPAY ==
--- OUTSIDE RECORDS SUMMARY | 2024-07-12 21:58 | XMS RPT_ITS | CCD ---
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 Name Role Phone Unavailable Primary Care Provider Unavailabl e SHAHNAZ CRANE LEILANI Primary Care Provider RAVINDER INFANTE MD Attending Provider EMIGDIO BOJORQUEZ PA-C Referring Provider RAVINDER INFANTE MD Referring Provider EMIGDIO BOJORQUEZ PA-C Attending Provider [phone] GLEN LANDAVERDE Attending Unavailable LEANNE MONTENEGRO Attending Unavailable LM BANDA Attending Unavailable MIYA PAUL Attending Unavailable OLINDA MARCUM Attending Unavailable MILIND MARIO Attending Unavailable JERMAIN BURT Attending Unavailabl GLEN Toure Attending Unavailable MIYA PAUL Attending Unavailable JERMAIN BURT Attending Unavailabl e BOJORQUEZ, EMIGDIO Referring Unavailable BOJORQUEZ, EMIGDIO Attending Unavailable CHRISTIE, LEILANI Primary Care Unavailable BOJORQUEZ, EMIGDIO Attending Unavailable BOJORQUEZ, EMIGDIO Referring Unavailable CHRISTIE, LEILANI Primary Care Unavailable CHRISTIE, LEILANI Primary Care Unavailable BOJORQUEZ, EMIGDIO Attending Unavailable BOJORQUEZ, EMIGDIO Referring Unavailable CHRISTIE, LEILANI Primary Care Unavailable BOJORQUEZ, EMIGDIO Attending Unavailable CHRISTIE, LEILANI Primary Care Unavailable BOJORQUEZ, EMIGDIO Attending Unavailable BOJORQUEZ, EMIGDIO Referring Unavailable CHRISTIE, LEILANI Primary Care Unavailable RAVINDER INFANTE Referring Unavailable RAVINDER INFANTE Attending Unavailable CHRISTIE, LEILANI Primary Care Unavailable BOJORQUEZ, EMIGDIO Referring Unavailable RAVINDER INFANTE Attending Unavailable CHRISTIE, LEILANI Primary Care Unavailable BOJORQUEZ, EMIGDIO Referring Unavailable BOJORQUEZ, EMIGDIO Attending Unavailable LUNA BUENO Attending Unavailable LYLA TAYLOR Referring Unavailabl e Care Physician, No Primary Primary Care Provider Unavailable Care Physician, No Primary Referring Provider Un available Dr. Keke Ruggiero DO Attending Provider Brielle Huber Attending Provider 1(330) Yossi Florse DO, Dr. Davies Referring Provider Mynor HORNE, Мария Attending Provider 1(330) Neeru AGUILAR, Dr. Arita Attending Provider Мария Lowe CNM Referring Provider 1(330) Neeru AGUILAR, Dr. Arita Referring Provider Neeru AGUILAR, Dr. Arita Other Provider 1(330 ) Neeru AGUILAR, Dr. Arita Admit Provider 1(330 ) Care Physician, No Primary Primary Care Provider Unavailable Care Physician, No Primary Referring Provider Un available Мария Lowe CNM Attending Provider 1(330) Yossi Flores DO, Dr. Davies Attending Provider Yossi Flores DO, Dr. Davies Referring Provider Unavailable Primary Care Provider Unavailabl e SWETHA HAGER Attending Unavailable BONNIE JACOBSON Attending Unavailable Care Physician, No Primary Primary Care Unava ilable MarcanthLyla reinoso Referring Unavailable Lyla Taylor Attending Unavailable Care Physician, No Primary Primary Care Unava ilable Vande VelKeke black Referring Unavailabl e Vande Velde, Keke Attending Unavailabl e Care Physician, No Primary Primary Care Unava ilable Vande Velde, Keke Attending Unavailabl e Vande Velde, Keke Referring Unavailabl e MarcLyla jones Attending Unavailable Care Physician, No Primary Primary Care Unava ilable MarcLyla jones Referring Unavailable Care Physician, No Primary Referring Unava ilable Care Physician, No Primary Primary Care Unava ilable Vande VeldeKeke Attending Unavailabl e Lyla Taylor Attending Unavailable Care Physician, No Primary Primary Care Unava ilable Lyla Taylor Referring Unavailable Care Physician, No Primary Primary Care Unava ilable MarcanthLyla reinoso Referring Unavailable Lyla Taylor Attending Unavailable Care Physician, No Primary Referring Unava ilable Care Physician, No Primary Primary Care Unava ilable Marcanthony, Lyla Attending Unavailable Care Physician, No Primary Primary Care Unava ilable Marcanthony, Lyla Admitting Unavailable Marcanthony, Lyla Consulting Unavailable Keke Ruggiero Attending Unavailabl e Marcanthony, Lyla Referring Unavailable Marcanthony, Lyla Attending Unavailable Care Physician, No Primary Primary Care Unava ilable Marcanthony, Lyla Referring Unavailable Marcanthony, Lyla Consulting Unavailable Marcanthony, Lyla Attending Unavailable Care Physician, No Primary Referring Unava ilable Care Physician, No Primary Primary Care Unava ilable Marcanthony, Lyla Attending Unavailable Care Physician, No Primary Referring Unava ilable Care Physician, No Primary Primary Care Unava ilable Мария Lowe Attending Unavailable Care Physician, No Primary Referring Unava ilable Care Physician, No Primary Primary Care Unava ilable Marcanthony, Lyla Attending Unavailable Care Physician, No Primary Referring Unava ilable Care Physician, No Primary Primary Care Unava ilable Мария Lowe Attending Unavailable Care Physician, No Primary Referring Unava ilable Care Physician, No Primary Primary Care Unava ilable Marcanthony, Lyla Attending Unavailable Care Physician, No Primary Referring Unava ilable Care Physician, No Primary Primary Care Unava ilable Marcanthony, Lyla Attending Unavailable Marcanthony, Lyla Attending Unavailable Care Physician, No Primary Referring Unava ilable Care Physician, No Primary Primary Care Unava ilable Care Physician, No Primary Referring Unava ilable Care Physician, No Primary Primary Care Unava ilable Marcanthony, Lyla Attending Unavailable Care Physician, No Primary Referring Unava ilable Care Physician, No Primary Primary Care Unava ilable Keke Ruggiero Attending Unavailabl e Marcanthkemar, Lyla Attending Unavailable Care Physician, No Primary Primary Care Unava ilable Marcanthony, Lyla Referring Unavailable Marcanthony, Lyla Attending Unavailable Care Physician, No Primary Primary Care Unava ilable Marcanthony, Lyla Admitting Unavailable Marcanthony, Lyla Referring Unavailable Care Physician, No Primary Primary Care Unava ilable Мария Lowe Referring Unavailable Мария Lowe Attending Unavailable Care Physician, No Primary Referring Unava ilable Care Physician, No Primary Primary Care Unava ilable Brielle Delgado Attending Unavailable Care Physician, No Primary Referring Unava ilable Care Physician, No Primary Primary Care UnaМария Valles Attending Unavailable Care Physician, No Primary Referring Virginie ilable Care Physician, No Primary Primary Care Katalinava Lyla Gregorio Attending Unavailable Care Physician, No Primary Referring Unava ilable Care Physician, No Primary Primary Care Unava Мария Liz Attending Unavailable Care Physician, No Primary Primary Care Мария Butler Referring Unavailable Мария Lowe Attending Unavailable Allergies Allergy Classification Reported Allergen(s) Allergy Type Date of Onset Reaction(s) Facility (10 sources) Nystatin; Translations: [NYSTATIN] Drug Allergy 03-23-2021 Unknown [facility] Work Phone: (1 source) Nystatin Drug Allergy 03-23-2021 [facility] Repository Medications Current Medications Medication Drug Class(es) Dates Sig (Normalized) Sig (Original) [id number] 200 actuat albuterol 0.09 mg/actuat metered dose inhaler (1 source) beta2-Adrenergic Agonist take 2 puff(s) by mouth every six hours as needed albuterol HFA (PROVENTIL HFA, VENTOLIN HFA) 90 mcg/actuation inhaler INHALE 2 PUFFS BY MOUTH INTO THE LUNGS EVERY 6 HOURS NEEDED FOR 30 DAYS Active amoxicillin 875 mg oral tablet (1 source) Penicillin-class Antibacterial Start: 05-24-2023 End: 05-31-2023 take 1 tablet by mouth twice daily amoxicillin (AMOXIL) 875 mg tablet Take 1 tablet by mouth two times a day for 7 days. 14 tablet 0 05/24/2023 05/31/2023 Active Comment on above: Take 1 tablet by rayne two times a day for 7 days. 60 actuat budesonide 0.09 mg/actuat dry powder inhaler (6 sources) Corticosteroid Start: 03-14-2024 Budesonide 90 mcg/actuation aerosol powdr breath activated Active 2 NMA INHALATION TWICE A DAY March 14, 2024 1:00am cephalexin 500 mg oral tablet (7 sources) Cephalosporin Antibacterial Start: 07-05-2024 End: 07-13-2024 take 1 tablet by mouth three times daily for urinary tract infection Cephalexin 500 mg tab Take 500 mg by mouth three times a day. For UTI 07/05/2024 07/13/2024 Active Start: 07-03-2024 take 1 capsule by mo ut three times daily Cephalexin 500 mg capsule Active 500 mg PO THREE TIMES A DAY 27 08July 03, 2024 12:00am July 09, 2024 12:00am space evenly during waking hours Start: 07-14-2018 End: 01-21-2019 take 1 capsule by mouth three times daily Cephalexin 500 MG capsule Discontinued 500 MG PO 3 times per day July 14, 2018 12:00am January 21, 2019 5:53pm dextromethorphan hydrobromide 2 mg/ml / guaiFENesin 20 mg/ml oral solution (5 sources) Uncompetitive D-ginmru-X-aspartate Receptor Antagonist, Sigma-1 Agonist Start: 03-23-2021 take 1 mL by mouth every four hours Dextromethorphan-Guaifenesin 10 ML syrup Active 10 ML PO Every 4 hours March 23, 2021 1:00am Take #2 teaspoons every 4 hours as needed for cough and congestion ferrous gluconate 324 mg oral tablet (6 sources) Start: 2024 take 1 tablet by mouth once daily Ferrous Gluconate 324 mg (37.5 mg iron) tablet Active 324 mg PO daily 2024 1:00am ferrous sulfate (1 source) ferrous sulfate (IRON ORAL) Take by mouth. Active Mv-Mins 80-Qpcd-Tdtli No.1-Dha ([facility]) 28-1-300 mg capsule (6 sources) Start: 10-19-2023 Mv-Mins 94-Xhif-Aphmm No.1-Dha ([facility]) 28-1-300 mg capsule Active 1 NMA PO DAILY October 19, 2023 12:00am Start: 10-19-2023 Mv-Mins 71-Iro n-Folic No.1-Dha ([facility]) 28-1-300 mg capsule Active NMA PO October 19, 2023 12:00am predniSONE 10 mg oral tablet (1 source) Start: 10-17-2022 End: 10-20-2022 take 4 tablets by mouth once daily predniSONE (DELTASONE) 10 mg tablet Take 4 tablets by mouth once daily for 3 days. 12 tablet 0 10/17/2022 10/20/2022 Active Comment on above: Take 4 tablets by mo [facility] once daily for 3 days. vit,meredith 74/iron/folic ( VITAMIN 1+1 ORAL) (1 source) take 1 tablet by mouth once daily vit,meredith 74/iron/folic ( VITAMIN 1+1 ORAL) Take 1 tablet by mouth once daily. Active sulfamethoxazole 800 mg / trimethoprim 160 mg oral tablet (1 source) Dihydrofolate Reductase Inhibitor Antibacterial, Sulfonamide Antimicrobial Start: 07-06-2024 End: 07-13-2024 take 1 tablet by mouth twice daily sulfamethoxazole -trimethoprim (BACTRIM DS) 800-160 mg per tablet Indications: Mastitis in female Take 1 tablet by mouth two times a day for 7 days. 14 tablet 07/06/2024 07/13/2024 Active Completed/Discontinued Medications Medication Drug Class(es) Dates Sig (Normalized) Sig (Original) 21 day ethinyl estradiol 0.261714 mg/hr / etonogestrel 0.005 mg/hr vaginal system (5 sources) Progestin, Estrogen Start: 01-21-2019 End: 03-23-2021 Etonogestrel-Ethiny l Estradiol 1 EACH ring Discontinued 1 EA VAG Every month January 21, 2019 1:00am March 23, 2021 8:52pm fosfomycin 3000 mg powder for oral solution (6 sources) Start: 11-18-2023 End: 04-12-2024 take 3 g by mouth once Fosfomycin Tromethamine 3 gram packet Discontinued 3 g PO ONCE 1 November 18, 2023 12:00am April 12, 2024 11:27am ketorolac tromethamine 10 mg oral tablet (5 sources) Nonsteroidal Anti-inflammatory Drug, Cyclooxygenase Inhibitor Start: 07-17-2018 End: 01-21-2019 take 1 tablet by mouth every six hours as needed for pain Ketorolac 10 MG tablet Discontinued 10 MG PO Every 6 hours as needed for pain July 17, 2018 12:00am January 21, 2019 5:53pm naproxen 500 mg oral tablet (5 sources) Nonsteroidal Anti-inflammatory Drug Start: 07-14-2018 End: 01-21-2019 take 1 tablet by mouth twice daily Naproxen 500 MG tablet Discontinued 500 MG PO 2 times per day July 14, 2018 12:00am January 21, 2019 5:53pm nitrofurantoin, macrocrystals 25 mg / nitrofurantoin, monohydrate 75 mg oral capsule (5 sources) Nitrofuran Antibacterial Start: 01-21-2019 End: 03-23-2021 take 1 capsule by mouth twice daily Nitrofurantoin Monohyd/M-Cryst 100 MG capsule Discontinued 100 MG PO 2 times per day January 21, 2019 1:00am March 23, 2021 8:52pm ondansetron 4 mg disintegrating oral tablet (10 sources) Serotonin-3 Receptor Antagonist Start: 10-31-2020 End: 03-23-2021 Ondansetron 4 MG tablet,disintegrati ng Discontinued 1 - 2 TAB SL Q6H as needed for For Nausea / Vomiting October 31, 2020 12:00am March 23, 2021 8:52pm Start: 07-14-2018 End: 01-21-2019 take 1 tablet under the tongue every six hours as needed for nausea Ondansetron 4 MG tablet,disintegrating Discontinued 1 - 2 TAB sublingual Q6H as needed for For Nausea July 14, 2018 12:00am January 21, 2019 5:53pm phenazopyridine hydrochloride 100 mg oral tablet (5 sources) Start: 07-17-2018 End: 01-21-2019 take 1 tablet by mouth three times daily as needed Phenazopyridine 100 MG tablet Discontinued 100 MG PO 3 times per day as needed for burning with urination July 17, 2018 5:07pm January 21, 2019 5:53pm Problems Active Problems Problem Classification Problem Date Documented Date Episodic/Chronic Administrative/socia l admission (6 sources) Patient encounter status; Translations: [Encounter for pre-employment examination] 10-19-2023 Episodic Asthma (20 sources) Asthma; Translations: [Unspecified asthma, uncomplicated] Onset: 05-09-2024 03-14-2024 Chronic Comment on above: moderate persistent, needs to establish with PCP, will start on daily budesonide. albuterol rescue. Conditions associated with dizziness or vertigo (5 sources) Dizzy spells; Translations: [Dizziness and giddiness] 03-08-2016 Episodic E Codes: Adverse effects of medical drugs (1 source) Adverse effect of unspecified systemic antibiotic, initial encounter; Translations: [Antibiotic-induced yeast infection] Onset: 05-31-2024 Episodic Genitourinary symptoms and ill-defined conditions (1 source) Dysuria; Translations: [Dysuria] Onset: 07-12-2024 Episodic Menstrual disorders (1 source) Dysmenorrhea Chronic Mycoses (1 source) Candidiasis, unspecified; Translations: [Antibiotic-induced yeast infection] Onset: 05-31-2024 Episodic Nausea and vomiting (5 sources) Nausea; Translations: [Nausea] 10-31-2020 Episodic Nonmalignant breast conditions (4 sources) Breast lump; Translations: [Inflammatory disorder of breast] Onset: 06-06-2023 Episodic Nonspecific chest pain (10 sources) Chest discomfort; Translations: [Chest pain] 01-21-2019 Episodic Open wounds of extremities (5 sources) Laceration of foot; Translations: [Laceration without foreign body, unspecified foot, initial encounter] 08-25-2014 Episodic Other circulatory disease (5 sources) Orthostatic hypotension; Translations: [Orthostatic hypotension] 03-08-2016 Episodic Other complications of (20 sources) Anemia of ; Translations: [Anemia complicating , unspecified trimester] 2024 Chronic Other complications of (2 sources) Anemia complicating , unspecified trimester; Translations: [Anemia complicating , unspecified trimester] Onset: 05-09-2024 Chronic Other complications of (20 sources) Rubella non-immune; Translations: [Supervision of other high risk pregnancies, unspecified trimester] 10-24-2023 Episodic Comment on above: offer MMR PP Other complications of (20 sources) High risk ; Translations: [Supervision of high risk , unspecified, unspecified trimester] 2024 Episodic Comment on above: PRR , ESTELA 05/11/24 , girl [place] Other complications of (20 sources) Group B Streptococcus carrier; Translations: [Streptococcus B carrier state complicating ] 04-16-2024 Episodic Comment on above: PCN in labor Other complications of (10 sources) Uterine size for dates discrepancy; Translations: [Uterine size-date discrepancy, third trimester] 05-09-2024 Episodic Comment on above: nl growth and lakia Other complications of (2 sources) Uterine size-date discrepancy, third trimester; Translations: [Uterine size-date discrepancy, third trimester] Onset: 05-09-2024 Episodic Other complications of (2 sources) Streptococcus B carrier state complicating ; Translations: [Streptococcus B carrier state complicating ] Onset: 05-09-2024 Episodic Other complications of (2 sources) Supervision of other high risk pregnancies, unspecified trimester; Translations: [Supervision of other high risk pregnancies, unspecified trimester] Onset: 05-09-2024 Episodic Other complications of (2 sources) Supervision of high risk , unspecified, second trimester; Translations: [Supervision of high risk , unspecified, second trimester] Onset: 05-09-2024 Episodic Other complications of (2 sources) Decreased movements, third trimester, not applicable or unspecified; Translations: [Decreased movements, third trimester, not applicable or unspecified] Onset: 05-18-2024 Episodic Other complications of (1 source) Other specified related conditions, unspecified trimester; Translations: [Other specified related conditions, unspecified trimester] Onset: 05-10-2024 Episodic Other and delivery including normal (20 sources) Encounter for supervision of normal , unspecified, unspecified trimester; Translations: [Encounter for supervision of other normal , unspecified trimester] Onset: 09-15-2023 04-19-2024 Episodic Comment on above: NIPT low risk, jesse er neg. , normal anatomy SM IOL postdates 41 al Other screening for suspected conditions (not mental disorders or infectious disease) (5 sources) Encounter for screening for other suspected endocrine disorder; Translations: [Encounter for screening for diabetes mellitus] Onset: 10-21-2023 Episodic Other skin disorders (1 source) Eruption; Translations: [Rash and other nonspecific skin eruption] 10-17-2022 Episodic Otitis media and related conditions (1 source) Acute left otitis media; Translations: [Otitis media, unspecified, left ear] 05-24-2023 Episodic Prolonged (4 sources) Post-term ; Translations: [Post-term ] Onset: 05-31-2024 05-16-2024 Episodic Residual codes; unclassified (2 sources) 40 weeks gestation of ; Translations: [40 weeks gestation of ] Onset: 05-09-2024 Episodic Residual codes; unclassified (1 source) 38 weeks gestation of ; Translations: [38 weeks gestation of ] Onset: 05-01-2024 Episodic Unclassified (2 sources) Other underimmunization status; Translations: [Other underimmunization status] Onset: 05-09-2024 Urinary tract infections (10 sources) Urinary tract infectious disease; Translations: [Urinary tract infection, site not specified] 01-21-2019 Episodic Past or Other Problems Problem Classification Problem Date Documented Da te Episodic/Chronic Contraceptive and procreative management (1 source) Encounter of female for testing for genetic disease carrier status for procreative management; Translations: [Encounter of female for testing for genetic disease carrier status for procreative management] Onset: 11-23-2023 Episodic Other complications of (1 source) Supervision of high risk , unspecified, unspecified trimester; Translations: [Supervision of high risk , unspecified, unspecified trimester] Onset: 03-08-2024 Episodic Residual codes; unclassified (1 source) 36 weeks gestation of ; Translations: [36 weeks gestation of ] Onset: 04-12-2024 Episodic Residual codes; unclassified (1 source) 34 weeks gestation of ; Translations: [34 weeks gestation of ] Onset: 03-30-2024 Episodic Residual codes; unclassified (1 source) 24 weeks gestation of ; Translations: [24 weeks gestation of ] Onset: 01-20-2024 Episodic Residual codes; unclassified (1 source) 20 weeks gestation of ; Translations: [20 weeks gestation of ] Onset: 12-23-2023 Episodic Residual codes; unclassified (1 source) 15 weeks gestation of ; Translations: [15 weeks gestation of ] Onset: 11-18-2023 Episodic Residual codes; unclassified (1 source) Unspecified blood type, Rh negative; Translations: [Unspecified blood type, Rh negative] Onset: 10-21-2023 Episodic Screening and history of mental health and substance abuse codes (7 sources) History of clinical finding in subject; Translations: [Personal history of nicotine dependence] Onset: 10-21-2023 11-18-2023 Episodic Comment on above: Quit 04/2021 Results Test Name Value Interpretation Reference Range Facility Ambulance Paramedic Office Visit Reporton 07-12-2024 Ambulance Paramedic Office Visit Report [facility] [address], [address] [place] [address] OFFICE VISIT Date of Service: 07/12/24 MR#: [id number] Acct: [id number] Name: EFRAIN VARGAS Rep #: [id number] 8 : 2000 Provider: Dr. Lyla shaw MD Age/Sex: 24/F Location: [facility] [place] Status: Signed Intake Vital Signs 06/28/24 13:56 07/12/24 11:10 07/12/24 11:10 Height 5 ft 4 in 5 ft 4 in 5 ft 4 in Weight: 149 lb 2 oz 147 lb 6 oz BMI 25.6 25.2 BP 117/74 118/81 H Intake Visit Reasons: PP Still having vaginal burning, recent antibiotic [employer] Fab[employer]ating Supervisor Required: No Allergies No Known Allergies Allergy (Verified 07/12/24 11:10) Medications ???Medication ???Instructions ???Recorded ???Confirmed ???Type multivit-min no.71-iron fum 28 1 cap PO DAILY 10/19/23 07/12/24 History mg-folate no.1 1 mg-dha 300 mg capsule ([facility]) estradiol 0.01% (0.1 mg/gram) See Rx Instructions vaginal 07/12/24 Rx vaginal cream (Estrace) .COMPLEX #42.5 grams Post menopausal: No Patient : No : Yes [facility] Surgical History History of tonsillectomy and adenoidectomy Family History Grandmother Cancer Maternal- Gma's Twin Sister Brain Cancer Normal stillborn 30wks gestation Social History adopted: No household members: spouse number of children: 1 current occupational status: employed 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 [employer] current occupational exposures/hazards: No pets and animals: Yes (Avoid litter box) pets and animals: cat(s) and dog(s) history of recent travel: Yes ( and -August) out of state: Yes out of country: Yes sexually active: Yes Smoking Status: Former smoker quit date: 04/07/21 Electronic Cigarette Use: with nicotine alcohol intake: current alcohol intake frequency: holidays/special occasions only details: Not while substance use type: does not use well-balanced diet: daily or most days caffeine: No eating out: 1-3 times/week during the past year weight has: remained stable what type of physical activity do you participate in: none delphine/anabaptism: Mu-Ism seatbelt use: sometimes do you feel safe at home: Yes additional social history: [employer] HPI PP Still having vaginal burning, recent antibiotic Details: EFRAIN VARGAS is a 24 year old who presents for vaginal irritation persistent. she had a ua and culture that was negative and still has perineal burning throughout the day, no new loations soaps or washes she is History 1 Elective abortions Hx Para 1 Spontaneous abortions Hx # Term Pregnancies Ectopic pregnancies Hx # Pregnancies Multiple births # of living children 1 Past Pregnancies Del. Date Name GA/Weeks Outcome Route Bth Weight Infant Gen Labor Lgth Anesthesia Del Locatn Provider FOB 05/16/24 Al 41 live - full term 7lb 9oz Female epidural [facility] [place] Delivery Date: 05/16/24 Last Updated by: Franca Wilson RN See problem list for complications and IOL postdates 41 SM ROS Const Constitutional: Denies fatigue, fever(s), headache(s), increased appetite, poor appetite, weight gain or weight loss Cardio Card: Denies chest pain Resp Resp: Denies cough or dyspnea GI GI: Reports as per HPI; Denies abdominal pain, constipation, nausea or vomiting : Reports as per HPI, vaginal dryness and vaginal pruritus; Denies difficulty voiding, dysuria, nipple discharge, urinary frequency, urinary incontinence, urinary hesitancy, urinary urgency, vaginal discharge or vaginal odor Skin Skin/Breast: Denies change in hair, breast mass, breast pain, breast skin changes or nipple discharge Exam Const General: cooperative, healthy appearing, comfortable, no acute distress and well developed Nutritional Appearance: average body habitus Orientation: alert HENMT Head: normal to inspection and normocephalic Neck Neck: normal visual inspection and trachea midline Thyroid: thyroid normal Resp Effort Inspection: normal respiratory effort GI Inspection: normal to inspection and non-distended Palpation: soft and no hepatosplenomegaly General: bladder normal to palpation External Female Exam: normal external appearance and normal appearance of the urethra Urethra: normal appearance of the urethra, normal palpation and no discharge Speculum Exam - Vagina: normal appearance of the vagina and normal vaginal discharge Speculum Exam - Cervix: normal appearance of the cervix and nontender Bimanual Exam- Vagina Uterus: normal bimanual exam, uterine size normal, bladder normal to (more content not included)... Normal [facility] CNOVon 07-06-2024 CNOV Office Visit (UCWSTR ) EFRAIN ALFARO ([id number]) 4 F Date Time Provider Department 07/06/24 10:15 AM [facility] During your visit today, we recorded the following information about you: Temperature Pulse Respiration Blood pressure 100.5 degrees 123/minute 20/minute 108/80 Weight 67 kg Swetha Hager, ANTOLIN.[facility] 07/06/2024 10:43 AM Signed [facility] Subjective Efrain Alfaro is a 24 year old female. Patient presents with: Breast Problem: Left, breast, redness, pain, warmth, fever, body aches x 2 days HPI Mastitis: - Recent episode of mastitis approximately one month ago, resolved with treatment with Augmentin. - Current episode involves the left breast. - Reports fever up to 102.5 degreeF last night, with associated chills. - an 8-week-old . Infant was full term (41 wks). UTI: - Currently taking cephalexin, started last night. - Uncertain if a urine culture was performed. Review of Systems Constitutional: Positive for chills and fatigue. Respiratory: Negative. Cardiovascular: Negative. Gastrointestinal: Negative for nausea and vomiting. Constitutional: (+) fever (+) chills Objective BP 108/80 Pulse (!) 123 Temp (!) 38.1 ?C (100.5 ?F) Resp 20 Wt 67 kg (147 lb 11.3 oz) LMP 05/04/2023 (Exact Date) SpO2 98% Yes No past medical history on file. No past surgical history on file. ALLERGIES Nystatin MEDICATIONS - Cephalexin 500 mg tab Take 500 mg by mouth three times a day. For UTI - vit,meredith 74/iron/folic ( VITAMIN 1+1 ORAL) Take 1 tablet by mouth once daily. - albuterol HFA (PROVENTIL HFA, VENTOLIN HFA) 90 mcg/actuation inhaler INHALE 2 PUFFS BY MOUTH INTO THE LUNGS EVERY 6 HOURS NEEDED FOR 30 DAYS - sulfamethoxazole-trim ethoprim (BACTRIM DS) 800-160 mg per tablet Take 1 tablet by mouth two times a day for 7 days. - ferrous sulfate (IRON ORAL) Take by mouth. (Patient not taking: Reported on 07/06/2024) No family history on file. Social History Tobacco Use - Smoking status: Never Passive exposure: Never - Smokeless tobacco: Never Physical Exam Vitals and nursing note reviewed. Constitutional: General: She is not in acute distress. Appearance: Normal appearance. She is not ill-appearing. Cardiovascular: Rate and Rhythm: Tachycardia present. Pulmonary: Effort: Pulmonary effort is normal. Chest: Skin: General: Skin is warm and dry. Capillary Refill: Capillary refill takes less than 2 seconds. Coloration: Skin is not jaundiced. Findings: Erythema present. No bruising or rash. Neurological: Mental Status: She is alert. General: No acute distress. Breast: Erythema of left breast, induration of left breast. {1. Mastitis in female (N61.0) - Recurrent mastitis, previously resolved with treatment. - Currently experiencing fever up to 102.5 degreeF and significant erythema on the left breast. - Currently on cephalexin for a UTI, which is not effective for mastitis. - Initiated additional antibiotic therapy; prescription sent to pharmacy. - Patient to return tomorrow for recheck in [facility]. - Follow-up with your PCP in 3-5 days if symptoms have not improved or sooner if symptoms worsen - Discussed red flags and need for immediate medical evaluation if any occur. - Discussed supportive care treatment with fluids, rest and analgesia. - Discussed expected course of illness Swetha Hager APRN.EMERGENCY DISPATCHER and Recording using Ninite software for draft documentation of the visit was discussed with the patient/authorized freight representative; all questions welcomed and answered. Patient/authorized freight representative agreed to proceed History and Record Review Systemic symptoms present included: Disposition The patient was discharged. Transfer to ED was considered. Reason for not transferring: patient prefers outpatient treatment with recheck in [facility] tomorrow morning. OTC Medications were advised: Swetha Jones APRN.CNP 07/06/2024 10:42 AM Signed 1. Mastitis in female (N61.0) - Recurrent mastitis, previously resolved with treatment. - Currently experiencing fever up to 102.5 degreeF and significant erythema on the left breast. - Currently on cephalexin for a UTI, which is not effective for mastitis. - Initiated additional antibiotic therapy; prescription sent to pharmacy. - Patient to return tomorrow for recheck in [facility]. - Finish your 7-day course of cephalexin for the UTI as prescribed, starting last night. - Begin the new antibiotic for your mastitis as soon as you merchandise pickup/receiving associate the prescription; follow the directions on the pharmacy label. - Return to [facility] tomorrow morning for recheck. Allergies As of Date: 07/06/2024 Noted Allergy Reaction NYSTATIN 10/17/2022 16 - Unknown Date Reviewed: 07/06/2024 (more content not included)... Normal [facility] Urine Cultureon 06-30-2024 U[facility] Mixed Gram Positive Organisms [place] Count 11,000-25,000 MIXC Mixed contaminants. Submit a new specimen if indicated. Normal [facility] Comment on above: Performed By: #### M 100.2200 #### [facility] [address] [place] [address]. [place], [place], [id number] Laboratory - Chemistry and C hemistry - challengeOrdered By: Lyla Taylor on 06-28-2024 Bilirubin Ql (U) Negative [facility] Glucose Ql (U) Negative [facility] Ketones Ql (U) Negative [facility] pH (U) 7.0 [pH] [facility] Specific gravity (U) [Rel density] 1.005 [facility] Urobilinogen (U) [Mass/Vol] 0.6281263 mg/dL [facility] - Hematology and Cell countsOrdered By: Lyla Taylor on 06-28-2024 Hemoglobin Ql (U) Negative [facility] - Specimen inform ationOrdered By: Lyla Taylor on 06-28-2024 Clarity (U) Clear [facility] Color (U) YELLOW [facility] - UrinalysisOrder ed By: Lyla Luis Fernandokemar on 06-28-2024 Nitrite Ql (U) Negative [facility] Protein Ql (U) Negative [facility] No Panel InformationOrdered By: Lyla Taylor on 06-28-2024 Urine Leukocytes Negatve [facility] Urine Non-Hemolyzed Blood [facility] Ambulance Paramedic Office Visit Reporton 06-28-2024 Ambulance Paramedic Office Visit Report [facility] [address], [address] [place] [address] OFFICE VISIT Date of Service: 06/28/24 MR#: [id number] Acct: [id number] Name: EFRAIN VARGAS Rep #: [id number] : 2000 Provider: Dr. 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 Required: No Is patient in pain?: No Allergies No Known Allergies Allergy (Verified 06/28/24 14:08) Medications ???Medication ???Instructions ???Recorded ???Confirmed ???Type multivit-min no.71-iron fum 28 1 cap PO DAILY 10/19/23 06/28/24 History mg-folate no.1 1 mg-dha 300 mg capsule ([facility]) ferrous gluconate 324 mg (37.5 mg 324 mg PO QDAY anemia #90 tabs 06/28/24 Rx iron) tablet budesonide 90 mcg/actuation breath 2 inh inhalation BID asthma #1 e a 03/14/24 06/28/24 Rx activated powder inhaler : Yes PFSH Surgical History History of tonsillectomy and adenoidectomy Family History Grandmother Cancer Maternal- Gmarsh's Twin Sister Brain Cancer Normal stillborn 30wks gestation Social History (Updated 06/28/24 @ 14:09 by Brielle Kay) adopted: No household members: spouse number of children: 1 current occupational status: employed 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 [employer] current occupational exposures/hazards: No pets and animals: Yes (Avoid litter box) pets and animals: cat(s) and dog(s) history of recent travel: Yes ( and -August) out of state: Yes out of country: Yes sexually active: Yes Smoking Status: Former smoker quit date: 04/07/21 Electronic Cigarette Use: with nicotine alcohol intake: current alcohol intake frequency: holidays/special occasions only details: Not while substance use type: does not use well-balanced diet: daily or most days caffeine: No eating out: 1-3 times/week during the past year weight has: remained stable what type of physical activity do you participate in: none delphine/anabaptism: Mu-Ism seatbelt use: sometimes do you feel safe at home: Yes additional social history: [employer] History 1 Elective abortions Hx Para 1 Spontaneous abortions Hx # Term Pregnancies Ectopic pregnancies Hx # Pregnancies Multiple births # of living children 1 Past Pregnancies Del. Date Name GA/Weeks Outcome Route Bth Weight Infant Gen Labor Lgth Anesthesia Del Locatn Provider FOB 05/16/24 Al 41 live - full term 7lb 9oz Female epidural [facility] [place] Delivery Date: 05/16/24 Last Updated by: Franac Wilson RN See problem list for complications and IOL postdates 41 Depression Screen PHQ-2/9 PHQ-2 Over the last 2 weeks, how often have you been bothered by any of the following problems? 1. Little interest or pleasure in doing things: not at all 2. Feeling down, depressed, or hopeless: not at all Total score: 0 Post HPI Routine Follow-Up: Details: EFRAIN VARGAS is a 24 year old who presents for her post visit. Infant Feeding: Breast Menses resumed: No [place] since delivery: No Emotional Support: Yes Control Method: 10/21/23 ROS Const Reports system reviewed and no additional complaints, except as documented GI Reports system reviewed and no additional complaints, except as documented, Denies bloating, Denies constipation, Denies nausea and Denies vomiting Reports system reviewed and no additional complaints, except as documented, Denies abnormal vaginal bleeding, Denies pelvic pain, Denies sexual dysfunction, Denies urinary incontinence, Denies urinary hesitancy, Denies urinary urgency and Denies vaginal discharge Skin/Breast Reports system reviewed and no additional complaints, except as documented and Reports as per HPI Psych Reports as per HPI Exam Const General: cooperative, healthy appearing, comfortable and no acute distress HENMT Head: normal to inspection Neck Neck: normal visual inspection and no lymphadenopathy Thyroid: thyroid normal Chest Breast inspection: normal inspection of the breasts and normal inspection of the axillae Breast palpation: normal palpation of the breasts and normal palpation of the axillae Resp Effort Inspection: normal respiratory effort GI Inspection: normal to inspection Palpation: soft, no hepatosplenomegaly and nontender General: bladder normal to palpation External Female Exam: normal external appearance and normal appearance of the urethra (more content not included)... Normal [facility] Urine cultureOrdered By: Albaro Taylor on 06-28-2024 Bacteria identified Cx Nom (U) Positive Abnormal [facility] CNOVon 05-31-2024 CNOV Office Visit (UCWSTR ) EFRAIN ALFARO ([id number]) 4 F Date Time Provider Department 05/31/24 12:45 PM BONNIE JACOBSON [facility] During your visit today, we recorded the following information about you: Temperature Pulse Respiration Blood pressure 102 degrees 140/minute 18/minute 128/87 Weight 69.4 kg Bonnie Jacobson APRN.CNP 05/31/2024 12:38 PM Signed [facility] Subjective Efrain Rosalva Alfaro is a 24 year old year old who presents to express care today with complaint of Right breast pain x5 days worsening, now states she feels areas of hardness along side and base of right breast. States she began feeling fevered last night with headache and body aches without other signs of illness. She is a 2 week old baby girl. Mom states some pain with baby latch. Denies headaches, fever, sore throat, cough, shortness of breath, chest pains, Nausea, vomiting, changes in bowel or bladder or skin rashes. No current medication treatments. Aside from symptoms as described above, patient has no other complaints at this time. HPI: see above Review of Systems Constitutional: Positive for chills, fatigue and fever. Respiratory: Negative for cough, shortness of breath and wheezing. Cardiovascular: Negative for chest pain, palpitations and leg swelling. Gastrointestinal: Negative for diarrhea, nausea and vomiting. Genitourinary: Negative for dysuria, frequency and urgency. Skin: Right breast tissue warm and tender to touch worsening over the past 5 days ALLERGIES Allergen Reactions Nystatin Unknown Current Outpatient Medications on File Prior to Visit Medication Sig albuterol HFA (PROVENTIL HFA, VENTOLIN HFA) 90 mcg/actuation inhaler INHALE 2 PUFFS BY MOUTH INTO THE LUNGS EVERY 6 HOURS NEEDED FOR 30 DAYS ferrous sulfate (IRON ORAL) Take by mouth. No current facility-administered medications on file prior to visit. ACTIVE PROBLEM LIST Mild Intermittent Asthma (Hcc) Social History Tobacco Use Smoking status: Never Passive exposure: Never Smokeless tobacco: Never Objective BP 128/87 Pulse (!) 140 Temp (!) 38.9 ?C (102 ?F) Resp 18 Wt 69.4 kg (153 lb) LMP 05/04/2023 (Exact Date) SpO2 97% Yes Physical Exam Vitals reviewed. Constitutional: General: She is not in acute distress. Appearance: Normal appearance. She is not ill-appearing or toxic-appearing. Cardiovascular: Rate and Rhythm: Normal rate and regular rhythm. Pulses: Normal pulses. Heart sounds: Normal heart sounds. Pulmonary: Effort: Pulmonary effort is normal. Breath sounds: Normal breath sounds. Chest: Breasts: Right: Tenderness present. Left: Tenderness present. Abdominal: General: Bowel sounds are normal. Palpations: Abdomen is soft. Skin: General: Skin is warm and dry. Capillary Refill: Capillary refill takes less than 2 seconds. Findings: Rash present. Rash is macular and papular. Comments: Maculo-papular elevated erythematous rash Efrain states is itchy yet improving, all area michelle easily Neurological: Mental Status: She is alert and oriented to person, place, and time. Assessment/Plan 1. Mastitis (Primary) - amoxicillin-clavulana te potassium (AUGMENTIN) 875-125 mg per tablet; Take 1 tablet by mouth two times a day for 10 days. Dispense: 20 tablet; Refill: 0 - lecithin, soy 1,200 mg cap; Take 1 capsule by mouth once daily. Dispense: 30 capsule; Refill: 4 2. Antibiotic-induced yeast infection - fluconazole (DIFLUCAN) 150 mg tablet; Take 1 tablet by mouth one time only for 1 dose. Repeat in 3 days as needed. Dispense: 2 tablet; Refill: 0 Will also treat current yeast-rash to breasts and upper thighs Patient advised to drink fluids, get rest and take all meds as prescribed. Patient given educational materials - see instructions. Discussed use, benefit, and side effects of prescribed medications. All questions answered. Patient advised to follow up with PCP in one week, or sooner if symptoms worsen or persist. If symptoms become severe- GO TO ED. Patient verbalized understanding and agreeable with treatment plan. Bonnie Jacobson APRN, CNP 05/31/2024 12:31 PM Bonnie Jacobson APRN.SMILEY 05/31/2024 12:38 PM Signed [email or web address] Allergies As of Date: 05/31/2024 Noted Allergy Reaction NYSTATIN 10/17/2022 16 - Unknown Date Reviewed: 05/31/2024 Reviewed by: Bonnie Jacobson APRN.EMERGENCY DISPATCHER - Fully Assessed Reason for Visit: Breast Problem [16] Cmt: R breast mastitis x5 days, fever, bodyaches, GARCIA x last night Primary Visit Diagnosis:Mastitis [N61.0] Other Visit Diagnosis:Antibiotic- induced yeast infection [B37.9, T36.95XA] Order(s):amoxicillin- clavulanate potassium (AUGMENTIN) 875-125 mg per tabletTake 1 tablet by mouth two times a day for 10 days.Disp: 20 tabletRfl: 0 lecithin, soy (more content not included)... Normal [facility] Absolute lymphocyte countOrd ered By: Lyla Taylor on 05-16-2024 Lymphocytes Auto (Unsp spec) [#/Vol] 1.63 10*3/uL 0.83-4.51 [facility] Absolute neutrophil countOrd ered By: Lyla Taylor on 05-16-2024 Neutrophils (Bld) [#/Vol] 8.3 10*3/uL High 2.0-7.7 [facility] Automated lymphocyte count a s percentage of total leukocytesOrdered By: Lyla Taylor on 05-16-2024 Lymphocytes/100 WBC Auto (Unsp spec) 15.2 % Low 19-41 [facility] Basophil percentageOrdered B y: Lyla Taylor on 05-16-2024 Basophils/100 WBC (Bld) 0.4 % 0-1 [facility] CBC W/Diff, Automatedon Absolute Lymph 1.63 X10 3/uL Normal 0.83-4.51 [facility] Comment on above: Performed By: #### M 100.2200 #### [facility] [address] [place], [address] Absolute Neut 8.3 X10 3/uL High 2.0-7.7 [facility] Comment on above: Performed By: #### M 100.2200 #### [facility] [address] [place], [address] Basophils/100 WBC (Bld) 0.4 % Normal 0-1 [facility] Comment on above: Performed By: #### M 100.2200 #### [facility] [address] [place], [address] Eosinophils/100 WBC (Bld) 0.8 % Normal 0-5 [facility] Comment on above: Performed By: #### M 100.2200 #### [facility] [address] [place], [address] Erythrocyte distribution width (RBC) [Ratio] 14.8 % High 11.6-14.6 [facility] Comment on above: Performed By: #### M 100.2200 #### [facility] [address] [place], [address] Hematocrit (Bld) [Volume fraction] 28.6 % Low 37-47 [facility] Comment on above: Performed By: #### M 100.2200 #### [facility] [address] [place], [address] Hemoglobin (Bld) [Mass/Vol] 10.0 g/dL Low 12.0-15.0 [facility] Comment on above: Performed By: #### M 100.2200 #### [facility] [address] [place], [address] IG% 0.500 Normal 0.0-0.9 [facility] Comment on above: Result Comment: IG% - Immature Granulocytes (promyelocytes, myelocytes and metamyelocytes) > 1% indicates that a LEFT SHIFT is Present. Performed By: #### M 100.2200 #### [facility] [address] [place], [address] Lymphocytes/100 WBC (Bld) 15.2 % Low 19-41 [facility] Comment on above: Performed By: #### M 100.2200 #### [facility] [address] [place], [address] MCH (RBC) [Entitic mass] 33.2 pg High 27.0-32.0 [facility] Comment on above: Performed By: #### M 100.2200 #### [facility] [address] [place], [address] MCHC (RBC) [Mass/Vol] 35.0 g/dL Normal 32-36 [facility] Comment on above: Performed By: #### M 100.2200 #### [facility] [address] [place], [address] MCV (RBC) [Entitic vol] 95.0 fL Normal 81-99 [facility] Comment on above: Performed By: #### M 100.2200 #### [facility] [address] [place], [address] Monocytes/100 WBC (Bld) 5.3 % Normal 0-10 [facility] Comment on above: Performed By: #### M 100.2199 #### [facility] [address] [place], [address] Neutrophils/100 WBC (Bld) 77.8 % High 47-70 [facility] Comment on above: Performed By: #### M 100.2199 #### [facility] [address] [place], [address] Nucleated RBC (Bld) [#/Vol] 0 10*3/uL Normal 0-5 [facility] Comment on above: Performed By: #### M 100.2199 #### [facility] [address] [place], [address] Platelet mean volume (Bld) [Entitic vol] 9.9 fL Normal 6.2-12.0 [facility] Comment on above: Performed By: #### M 100.2199 #### [facility] [address] [place], [address] Platelets (Bld) [#/Vol] 168 10*3/uL Normal 150-450 [facility] Comment on above: Performed By: #### M 100.2199 #### [facility] [address] [place], [address] RBC (Bld) [#/Vol] 3.01 10*6/uL Low 4.2-5.4 [facility] Comment on above: Performed By: #### M 100.2199 #### [facility] [address] [place], [address] RDW SD 50.8 fl High 35.1-43.9 [facility] Comment on above: Performed By: #### M 100.2199 #### [facility] [address] [place], [place], [address] WBC (Bld) [#/Vol] 10.7 10*3/uL Normal 4.4-11.0 [facility] Comment on above: Performed By: #### M 100.2200 #### [facility] [address] [place], [address] Discharge Instructionon Discharge Instruction [facility] Medical Records Department [address] [place] [address] Instructions for Home/Discharge Instructions 05/16/24 2145 MR#: [id number] Acct: [id number] Name: EFRAIN VARGAS Rep #: [id number] : 2000 24 From: Lyla Taylor MD PCP: Care Physician,No Primary Status:ADM IN Discharge Instructions Diet Discharge Diet: No restrictions DC O2, CPAP, BIPAP needs Home O2 Discharge instructions: No Dressing / Incision Discharge Activity: Return to Normal Activity, May Not Drive (while taking narcotic pain medications.) and May Shower May resume sexual activity in: 4-6 weeks Dressing / Incision Call your doctor if your incision/area has: Continuous Slow Oozing, Sudden Increased Bleeding, Increased Pain/ Swelling, Increased Redness and Foul Smelling Discharge Follow Up Care Please Follow Up With: Lyla Taylor MD When: Call [phone] to make an appointment with your doctor in 6 weeks. If you had elevated blood pressure or 4th degree laceration, you will need to be seen in 2 weeks. Test Results: Test results from this visit will be discussed in further detail at your follow-up appointment, if applicable. Discharge Plan Admission Admit Date/Time: 05/16/24 07:00 Attending Provider: Lyla Taylor Primary Care Provider: Care Physician,Tory Primary Discharge Orders/Prescriptions Prescriptions: No Action [facility] 28-1-300 mg capsule 1 cap PO DAILY budesonide 90 mcg/actuation aerosol powdr breath activated 2 inh inhalation BID Qty: 1 12RF ferrous gluconate 324 mg (37.5 mg iron) tablet 324 mg PO QDAY Qty: 90 1RF Referrals / Follow Up: Care Physician,No Primary [Primary Care Provider] - Disposition Disposition (needs filled in before D/C Order can be placed): Home, Self Care 05/16/242144 Lyla Taylor MD CC: No Primary Care Physician Signed Normal [facility] Eosinophil percentageOrdered By: Lyla Taylor on 05-16-2024 Eosinophils/100 WBC (Bld) 0.8 % 0-5 [facility] Erythrocyte distribution wid th (RBC) [Ratio]Ordered By: Lyla Taylor on 05-16-2024 Erythrocyte distribution width (RBC) [Entitic vol] 50.8 fL High 35.1-43.9 [facility] Erythrocyte distribution wid th ratioOrdered By: Lyla Taylor on 05-16-2024 Erythrocyte distribution width (RBC) [Ratio] 14.8 % High 11.6-14.6 [facility] Erythrocyte distribution wid th standard deviationOrdered By: Lyla Taylor on 05-16-2024 Erythrocyte distribution width (RBC) [Ratio] 50.8 fl High 35.1-43.9 [facility] H AND P Exam - OB/GYNon H&P Exam - STITCH CLEANER [facility] Medical Records Department [address] [place] [address] H P Exam - STITCH CLEANER 05/16/24 0828 MR#: [id number] Acct: [id number] Name: EFRAIN VARGAS Rep #: [id number] : 2000 24 From: Lyla Taylor MD PCP: Care Physician,No Primary Status:ADM IN Location: [id number] HPI - General General Date of Admission: 05/16/24 HPI Narrative EFRAIN VARGAS, is a 24 F who presents for IOL secondary to postdates. Maternal Data Information ESTELA Calculator Estimated Delivery Date Method Current WG Current Estimate 05/09/24 Ultrasound #1 41w 0d Other Estimates 05/11/24 LMP (Certain) 40w 5d PFSH PFSH Home Medications ???Medication ???Instructions ???Recorded ???Last Taken ???Type multivit-min no.71-iron fum 28 1 cap PO DAILY 10/19/23 05/16/24 06:00 History mg-folate no.1 1 mg-dha 300 mg 1 cap capsule (PNV-[facility]) ferrous gluconate 324 mg (37.5 mg 324 mg PO QDAY anemia #90 tabs 05/15/24 17:00 Rx iron) tablet budesonide 90 mcg/actuation breath 2 inh inhalation BID asthma #1 e a 03/14/24 Unknown Rx activated powder inhaler Allergy/AdvReac Type Severity Reaction Status Date / Time No Known Allergies Allergy Verified 05/16/24 07:53 Family History Grandmother Cancer Maternal- Micheal's Twin Sister Brain Cancer Normal stillborn 30wks gestation Surgical History History of tonsillectomy and adenoidectomy Social History adopted: No household members: spouse current occupational status: employed 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 [employer] current occupational exposures/hazards: No pets and animals: Yes (Avoid litter box) pets and animals: cat(s) and dog(s) history of recent travel: Yes ( and -August) out of state: Yes out of country: Yes sexually active: Yes Smoking Status: Former smoker quit date: 04/07/21 Electronic Cigarette Use: with nicotine alcohol intake: current alcohol intake frequency: holidays/special occasions only details: Not while substance use type: does not use well-balanced diet: daily or most days caffeine: No eating out: 1-3 times/week during the past year weight has: remained stable what type of physical activity do you participate in: none delphine/anabaptism: Mu-Ism seatbelt use: sometimes do you feel safe at home: Yes additional social history: [employer] History 1 Elective abortions Hx Para 0 Spontaneous abortions Hx # Term Pregnancies Ectopic pregnancies Hx # Pregnancies Multiple births # of living children Visit Details Expected Delivery Route/Plan Labor Preferences- CB/BF classes: enc labor support person: [place] labor intervention preferences: [] pain management options preferred: limited if possible cut cord/dad catch: yes : yes PP control planned: discussed discussed possible routes of delivery and associated risks: [] special requests: [] Plans Covid status: [] Flu vaccine: given Tdap vaccine: [] Rhogam: NA LARC form signed: yes Problem list reviewed and updated with the most current plan of care details and appropriate orders placed. Relevant counseling for the gestational age provided. Continue routine care and follow up unless otherwise noted in visit notes/problem list details OB Flowsheet Initial Weight: 141 lb Date -???-???-???-???-???- ???-???-???-???-???-? ??-???- EGA Weight BP Urine Prot -???-???-???-???-???- ???-???-???-???-???-? ??-???- Glucose FHR FuHt Pres Dilation -???-???-???-???-???- ???-???-???-???-???-? ??-???- Effaced St Visit Note 10/21/23 -???-???-???-???-???- ???-???-???-???-???-? ??-???- 11w 2d 141 lb (+0 oz) 128/75 -???-???-???-???-???- ???-???-???-???-???-? ??-???- 168 -???-???-???-???-???- ???-???-???-???-???-? ??-???- KW- CRL cons with dates. Accepts NIPT and carrier. 11/18/23 -???-???-???-???-???- ???-???-???-???-???-? ??-???- 15w 2d 143 lb (+2 lb) 109/72 Negative -???-???-???-???-???- ???-???-???-???-???-? ??-???- Negative 150 -???-???-???-???-???- ???-???-???-???-???-? ??-???- SM- co dysur ia, culture sent 12/23/23 -???-???-???-???-???- ???-???-???-???-???-? ??-???- 20w 2d 148 lb (+7 lb) 124/77 Negative -???-???-???-???-???- ???-???-???-???-???-? ??-???- Negative 156 -???-???-???-???-???- ???-???-???-???-???-? ??-???- LC- no vb/cr amping. normal anatomy scan. sciatic discomfort- stretches recommended. 01/20/24 -???-???-???-???-???- ???-???-???-???-???-? ??-???- 24w 2d 155 lb 6 oz (+14 lb 6 oz) 116/75 Negative -???-???-???-???-???- ???-???-???-???-???-? ??-???- Negative 160 26 -???-???-???-???-???- ???-???-???-???-???- (more content not included)... Normal [facility] Hematocrit Auto (Bld) [Volum e fraction]Ordered By: Lyla Taylor on 04-09-2025 Hematocrit (Bld) [Volume fraction] 28.6 % Low 37-47 [facility] Hemoglobin measurementOrdere d By: Lyla Taylor on 05-16-2024 Hemoglobin (Bld) [Mass/Vol] 10.0 g/dL Low 12.0-15.0 [facility] Immature granulocytes/100 WB C Auto (Bld)Ordered By: Lyla Taylor on 05-16-2024 Immature granulocytes/100 WBC (Bld) 0.500 % 0.0-0.9 [facility] Comment on above: IG% - Immature Granu locytes (promyelocytes, myelocytes and metamyelocytes) > 1% indicates that a LEFT SHIFT is Present. Lymphocytes Auto (Unsp spec) [#/Vol]Ordered By: Lyla Taylor on 05-16-2024 Lymphocytes (Bld) [#/Vol] 1.63 10*3/uL 0.83-4.51 [facility] Lymphocytes/100 WBC Auto (Un sp spec)Ordered By: Lyla Taylor on 05-16-2024 Lymphocytes/100 WBC (Bld) 15.2 % Low 19-41 [facility] MCV (mean corpuscular volume ) determinationOrdered By: Lyla Taylor on 05-16-2024 MCV (RBC) [Entitic vol] 95.0 fL 81-99 [facility] MR/OB.VAGDELIon 05-16-2024 [facility] Medical Records Department [address] [place] [address] OB Vaginal Delivery 05/16/24 2142 MR#: [id number] Acct: [id number] Name: EFRAIN VARGAS Rep #: [id number] : 2000 24 From: Lyla Taylor MD PCP: Care Physician,No Primary Status:ADM IN Location: [id number] Assessment Plan (1) Vaginal delivery: COMMENT: SM IOL postdates 41 al (2) Post-dates : (3) Encounter for induction of labor: (4) Uterine size-date discrepancy, third trimester: COMMENT: nl growth and lakia (5) GBS (group B Streptococcus carrier), +RV culture, currently : COMMENT: PCN in labor (6) Anemia affecting : (7) Rubella non-immune status, antepartum: COMMENT: offer MMR PP (8) Supervision of high-risk : QUALIFIERS: Trimester: second trimester Qualified Code(s): O09.92 - Supervision of high risk , unspecified, second trimester COMMENT: PRR , ESTELA 05/11/24, girl [place] (9) : QUALIFIERS: Weeks of gestation: 40 weeks Qualified Code(s): Z3A.40 - 40 weeks gestation of COMMENT: NIPT low risk, carrier neg. , normal anatomy (10) Asthma: COMMENT: moderate persistent, needs to establish with PCP, will start on daily budesonide. albuterol rescue. Maternal Data Information ESTELA Calculator Estimated Delivery Date Method Current WG Current Estimate 05/09/24 Ultrasound #1 41w 0d Other Estimates 05/11/24 LMP (Certain) 40w 5d Vaginal Delivery Maternal Presentation Maternal Presentation: see assessment and plan Vaginal Delivery Information Procedure Performed: Spontaneous Vaginal Delivery Surgeon/Practitioner: Lyla aTylor Date of Procedure: 05/16/24 Pre-Procedure Diagnosis: see assessment and plan Post-Procedure Diagnosis: same Type of anesthesia: Epidural Estimated Blood Loss: 300 Findings Description of procedure: Patient began pushing and delivered the head in the ANDREW presentation. The head was delivered atraumatically and a loose nuchal cord ???1 was identified and easily reduced over the 's head. The anterior and posterior shoulders delivered without complication followed by the rest of the and the was placed on the maternal abdomen. Delayed cord clamping was employed for approximately 60 seconds. Cord was clamped and cut and gentle traction was applied to the cord and the placenta delivered spontaneously immediately following it was noted to be intact with three- vessel cord. The perineum and vagina were inspected and noted to have no significant laceration. EBL was 300. Patient and tolerated delivery well. Presentation: Vertex Placental Delivery Description: Spontaneous Specimen collected: Yes Description of specimen(s) removed: placenta Plaster Whittler educational speech language clinician: No Post Vaginal Deli Medications given after delivery: Other (pitocin) Complication Complications: No Multi Select Codes Urinary/Genital Urinary/Genital CPT Codes: 90855 Vaginal Delivery [facility] 05/16/242144 Cosigner Signature (if applicable): CC: Dr. Lyla Taylor MD; No Primary Care Physician Signed Normal [facility] Mean corpuscular hemoglobin (MCH) determinationOrdered By: Lyla Taylor on 05-16-2024 MCH (RBC) [Entitic mass] 33.2 pg High 27.0-32.0 [facility] Mean corpuscular hemoglobin concentration (MCHC) determinationOrdered By: Lyla Taylor on 05-16-2024 MCHC (RBC) [Mass/Vol] 35.0 g/dL 32-36 [facility] Mean platelet volume determi nationOrdered By: Lyla Taylor on 05-16-2024 Platelet mean volume (Bld) [Entitic vol] 9.9 fL 6.2-12.0 [facility] Monocyte percentageOrdered B y: Lyla Taylor on 05-16-2024 Monocytes/100 WBC (Bld) 5.3 % 0-10 [facility] Neutrophil percentageOrdered By: Lyla Taylor on 05-16-2024 Neutrophils/100 WBC (Bld) 77.8 % High 47-70 [facility] Nucleated red blood cell per centageOrdered By: Lyla Taylor on 05-16-2024 Nucleated RBC/100 WBC (Bld) [Ratio] 0 % 0-5 [facility] Platelet countOrdered By: Rell Taylor on 05-16-2024 Platelets (Bld) [#/Vol] 168 10*3/uL 150-450 [facility] RBC Auto (Bld) [#/Vol]Ordere d By: Lyla Taylor on 05-16-2024 RBC (Bld) [#/Vol] 3.01 10*6/uL Low 4.2-5.4 [facility] Syphilis Antibodieson 2024 Syphilis Abs Non-Reactive Normal Nonreactive [facility] Comment on above: Performed By: #### L 509.8002 #### [facility] [address] [place], [address] T. pallidum abOrdered By: Rell Taylor on 05-16-2024 Syphilis Total Antibody Non-Reactive Nonreactiv e [facility] Type AND Screenon 05-16-2024 ABO and Rh group Nom (Bld) Blood group O Rh(D) positive Normal [facility] Comment on above: Order Comment: Labor Performed By: #### M 100.2200 #### [facility] [address] [place], [address] White blood cell (WBC) count Ordered By: Lyla Taylor on 05-16-2024 WBC (Bld) [#/Vol] 10.7 10*3/uL 4.4-11.0 [facility] (ROM) Rupture Of Membraneson 05-09-2024 ROM Negative Normal Negative [facility] Comment on above: Result Comment: Amni otic fluid not present indicates No Rupture of Membranes at time of specimen collection. Performed By: #### L 205.1000 #### [facility] [address] [place], [address] Performed By: #### L 205.1000 ####[facility] [id number] [place], [address] OB Limited With Biometricson 05-09-2024 OB Limited With Biometrics [facility] Imaging Services [address] [place] [address] OB Limited With Biometrics MR#: [id number] Acct: [id number] Name: EFRAIN VARGAS Rep #: [id number] : 2000 F 24 From: López Mcdaniel DO PCP: Care Physician,No Primary Status: REG CLI Study: OB Limited With Biometrics Date of Exam: 05/09 Exam# [id number] Ordering Dr: Lyla Taylor PROCEDURE: OB LIMITED WITH BIOMETRICS 05/09/2024 REASON FOR EXAM: DECREASE IN FUNDAL HEIGHT TODAY AT OB APPT TECHNIQUE: High resolution obstetric ultrasound performed using a 2D transducer. Standard views obtained, including biometry, anatomy survey, and Doppler studies. COMPARISON: None FINDINGS Number: 1 Position: Vertex Placental Position: Anterior Placental Abnormalities: No evidence of previa. DIMENSIONS: Biparietal Diameter: 8.6 cm/34 weeks 6 days Head Circumference: 32.3 cm/36 weeks 4 days Abdominal Circumference: 35.6 cm/39 weeks 4 days Femur Length: 7.4 cm/37 weeks 5 days ESTIMATED WEIGHT: 3456 g ESTIMATED WEIGHT PERCENTILE (24+ weeks): 37% ESTIMATED GESTATIONAL AGE: Baseline: 40 weeks 0 days By Ultrasound: 37 weeks 1 day ESTIMATED DATE OF DELIVERY: Baseline: 05/09/2024 By Ultrasound: 05/29/2024 BIOPHYSICAL ASSESSMENT: Amniotic Fluid Volume: Subjectively normal. Amniotic Fluid Index: 9.7 (8-24 cm normal range) Cardiac Motion: 143 beats per minute. (Average) Trunk and Limb Motion: Present. MATERNAL ANATOMY: Adnexa: Neither maternal ovary is successfully identified. Cervical Length (if measured): Not clearly visualized. US/OB Limited With Biometrics IMPRESSION: Single viable intrauterine fetus with a gestational age of 37 weeks 1 day and ESTELA of 05/29/2024. Reading Location: [facility] CC: Dr. Lyla Taylor MD; No Primary Care Physician Instructor Correspondence School: Signed Normal [facility] OB Triage Progress Noteon OB Triage Progress Note [facility] Medical Records Department [address] [place] [address] OB Triage Progress Note 05/09/24 1659 MR#: [id number] Acct: [id number] Name: EFRAIN VARGAS Rep #: [id number] : 2000 24 From: Lyla Taylor MD PCP: Care Physician,No Primary Status:DEP CLI Y DOS: Location: WPOUT Progress Notes Date of Service: 05/09/24 Progress Note: Patient presents for triage evaluation secondary to dec fm and low FH FHT: 140 Moderate variability reactive no decelerations category I tracing [place]: irregular Contractions Assessment and plan: 40 weeks amniotic membranes intact uterine size date discrepancy n growth US Reactive NST, reassuring maternal and status patient discharged to home to follow-up as scheduled See problem list details for additional plan information. Laboratory Studies: Laboratory Tests 05/09/24 Range/Units 14:50 Vag Amniotic Fld Detect Negative (Negative) Charges/Coding Procedures Urinary/Genital 52xxx-59xxx: 19238-45 non-stress test Interp 05/11/24 1732 Date Lyla Taylor MD Cosigner Signature (if applicable): Date CC: Dr. Lyla Taylor MD; No Primary Care Physician Signed Normal [facility] Ambulance Paramedic Office Visit Reporton 05-09-2024 Ambulance Paramedic Office Visit Report [facility] [address], [address] [place] [address] OFFICE VISIT Date of Service: 05/09/24 MR#: [id number] Acct: [id number] Name: EFRAIN VARGAS Rep #: [id number] : 2000 Provider: Dr. Lyla shaw MD Age/Sex: 24/F Location: [facility] [place] Status: Signed Intake Vital Signs 02/14/24 09:56 05/01/24 10:05 05/09/24 13:54 05/09/24 13:56 Height 5 ft 5 in 5 ft 5 in 5 ft 5 in 5 ft 5 in Weight: 178 lb 2 oz BMI 29.6 BP 131/82 H Intake Visit Reasons: 40 WK OB HAPPY DUE DATE! :) Metal Fabricating Supervisor Required: No Is patient in pain?: No Allergies No Known Allergies Allergy (Verified 05/09/24 13:54) Medications ???Medication ???Instructions ???Recorded ???Confirmed ???Type multivit-min no.71-iron fum 28 cap PO 10/19/23 05/09/24 History mg-folate no.1 1 mg-dha 300 mg capsule ([facility]) ferrous gluconate 324 mg (37.5 mg 324 mg PO QDAY #90 tabs 02/14/24 05/09/24 Rx iron) tablet budesonide 90 mcg/actuation breath 2 inh inhalation BID #1 ea 03/1405/09/24 Rx activated powder inhaler Last Menstrual Period: 08/05/23 Zika: Zika virus screening: Negative : No PFSH PFSH Surgical History History of tonsillectomy and adenoidectomy Family History Grandmother Cancer Maternal- Gma's Twin Sister Brain Cancer Normal stillborn 30wks gestation Social History adopted: No household members: spouse current occupational status: employed 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 [employer] current occupational exposures/hazards: No pets and animals: Yes (Avoid litter box) pets and animals: cat(s) and dog(s) history of recent travel: Yes ( and ) out of state: Yes out of country: Yes sexually active: Yes Smoking Status: Former smoker quit date: 04/07/21 Electronic Cigarette Use: with nicotine alcohol intake: current alcohol intake frequency: holidays/special occasions only details: Not while substance use type: does not use well-balanced diet: daily or most days caffeine: No eating out: 1-3 times/week during the past year weight has: remained stable what type of physical activity do you participate in: none delphine/anabaptism: Mu-Ism seatbelt use: sometimes do you feel safe at home: Yes additional social history: [employer] History 1 Elective abortions Hx Para 0 Spontaneous abortions Hx # Term Pregnancies Ectopic pregnancies Hx # Pregnancies Multiple births # of living children HPI 40 WK OB HAPPY DUE DATE! :) Details: EFRAIN VARGAS is a 24 year old who presents for routine OB visit. OB Visit ESTELA Calculator Estimated Delivery Date Method Current WG Current Estimate 05/09/24 Ultrasound #1 40w 0d Other Estimates 05/11/24 LMP (Certain) 39w 5d Expected Delivery Route/Plan Labor Preferences- CB/BF classes: enc labor support person: [place] labor intervention preferences: [] pain management options preferred: limited if possible cut cord/dad catch: yes : yes PP control planned: discussed discussed possible routes of delivery and associated risks: [] special requests: [] Specific Issue/Plans Covid status: [] Flu vaccine: given Tdap vaccine: [] Rhogam: NA LARC form signed: yes Problem list reviewed and updated with the most current plan of care details and appropriate orders placed. Relevant counseling for the gestational age provided. Continue routine care and follow up unless otherwise noted in visit notes/problem list details Initial Weight: 141 lb Date -???-???-???-???-???- ???-???-???-???-???-? ??-???- EGA Weight BP Urine Prot -???-???-???-???-???- ???-???-???-???-???-? ??-???- Glucose FHR FuHt Pres Dilation -???-???-???-???-???- ???-???-???-???-???-? ??-???- Effaced St Visit Note 10/21/23 -???-???-???-???-???- ???-???-???-???-???-? ??-???- 11w 2d 141 lb (+0 oz) 128/75 -???-???-???-???-???- ???-???-???-???-???-? ??-???- 168 -???-???-???-???-???- ???-???-???-???-???-? ??-???- KW- CRL cons with dates. Accepts NIPT and carrier. 11/18/23 -???-???-???-???-???- ???-???-???-???-???-? ??-???- 15w 2d 143 lb (+2 lb) 109/72 Negative -???-???-???-???-???- ???-???-???-???-???-? ??-???- Negative 150 -???-???-???-???-???- ???-???-???-???-???-? ??-???- SM- co dysur ia, culture sent 12/23/23 -???-???-???-???-???- ???-???-???-???-???-? ??-???- 20w 2d 148 lb (+7 lb) 124/77 Negative -???-???-???-???-???- ???-???-???-???-???-? ??-???- Negative 156 -???-???-???-???-???- ???-???-???-???-???-? ??-???- LC- no vb/cr amping. normal anatomy scan. sciatic discomfort- stretche (more content not included)... Normal [facility] Testing for ruptured membran esOrdered By: Lyla Taylor on 05-09-2024 Vaginal Amniotic Fluid Detection Negative Negative [facility] Comment on above: Amniotic fluid not p resent indicates No Rupture of FetalMembranes at time of specimen collection. Vaginal Amniotic Fluid Detection Negative Negative [facility] Comment on above: Amniotic fluid not p resent indicates No Rupture of FetalMembranes at time of specimen collection. Laboratory - Chemistry and C hemistry - challengeOrdered By: Мария Lowe on 05-01-2024 Glucose Ql (U) Negative [facility] - UrinalysisOrder ed By: Мария Lowe on 05-01-2024 Protein Ql (U) Negative [facility] Ambulance Paramedic Office Visit Reporton 05-01-2024 Ambulance Paramedic Office Visit Report [facility], [address] [place] [address] OFFICE VISIT Date of Service: 05/01/24 MR#: [id number] Acct: [id number] Name: EFRAIN VARGAS Rep #: [id number] : 2000 Provider: OZZIE Srivastava ams Age/Sex: 24/F Location: [facility] [place] Status: Signed Intake Vital Signs 02/14/24 09:56 04/25/24 10:01 05/01/24 10:05 Height 5 ft 5 in 5 ft 5 in 5 ft 5 in Weight: 176 lb BMI 29.2 BP 114/76 Intake Visit Reasons: 39 WK OB Chief Complaint: 39wk OB Is patient in pain?: No Allergies No Known Allergies Allergy (Verified 05/01/24 10:05) Medications ???Medication ???Instructions ???Recorded ???Confirmed ???Type multivit-min no.71-iron fum 28 cap PO 10/19/23 05/01/24 History mg-folate no.1 1 mg-dha 300 mg capsule ([facility]) ferrous gluconate 324 mg (37.5 mg 324 mg PO QDAY #90 tabs 02/14/24 05/01/24 Rx iron) tablet budesonide 90 mcg/actuation breath 2 inh inhalation BID #1 ea 03/1405/01/24 Rx activated powder inhaler Last Menstrual Period: 08/05/23 : No [facility] Surgical History History of tonsillectomy and adenoidectomy Family History Grandmother Cancer Maternal- Gma's Twin Sister Brain Cancer Normal stillborn 30wks gestation Social History adopted: No household members: spouse current occupational status: employed 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 [employer] current occupational exposures/hazards: No pets and animals: Yes (Avoid litter box) pets and animals: cat(s) and dog(s) history of recent travel: Yes ( and -August) out of state: Yes out of country: Yes sexually active: Yes Smoking Status: Former smoker quit date: 04/07/21 Electronic Cigarette Use: with nicotine alcohol intake: current alcohol intake frequency: holidays/special occasions only details: Not while substance use type: does not use well-balanced diet: daily or most days caffeine: No eating out: 1-3 times/week during the past year weight has: remained stable what type of physical activity do you participate in: none delphine/anabaptism: Mu-Ism seatbelt use: sometimes do you feel safe at home: Yes additional social history: [employer] History 1 Elective abortions Hx Para 0 Spontaneous abortions Hx # Term Pregnancies Ectopic pregnancies Hx # Pregnancies Multiple births # of living children HPI 39 WK OB Details: EFRAIN VARGAS is a 24 year old who presents for routine OB visit. OB Visit ESTELA Calculator Estimated Delivery Date Method Current WG Current Estimate 05/09/24 Ultrasound #1 38w 6d Other Estimates 05/11/24 LMP (Certain) 38w 4d Expected Delivery Route/Plan Labor Preferences- CB/BF classes: enc labor support person: [place] labor intervention preferences: [] pain management options preferred: limited if possible cut cord/dad catch: yes : yes PP control planned: discussed discussed possible routes of delivery and associated risks: [] special requests: [] Specific Issue/Plans Covid status: [] Flu vaccine: given Tdap vaccine: [] Rhogam: NA LARC form signed: yes Problem list reviewed and updated with the most current plan of care details and appropriate orders placed. Relevant counseling for the gestational age provided. Continue routine care and follow up unless otherwise noted in visit notes/problem list details Initial Weight: 141 lb Date -???-???-???-???-???- ???-???-???-???-???-? ??-???- EGA Weight BP Urine Prot -???-???-???-???-???- ???-???-???-???-???-? ??-???- Glucose FHR FuHt Pres Dilation -???-???-???-???-???- ???-???-???-???-???-? ??-???- Effaced St Visit Note 10/21/23 -???-???-???-???-???- ???-???-???-???-???-? ??-???- 11w 2d 141 lb (+0 oz) 128/75 -???-???-???-???-???- ???-???-???-???-???-? ??-???- 168 -???-???-???-???-???- ???-???-???-???-???-? ??-???- KW- CRL cons with dates. Accepts NIPT and carrier. 11/18/23 -???-???-???-???-???- ???-???-???-???-???-? ??-???- 15w 2d 143 lb (+2 lb) 109/72 Negative -???-???-???-???-???- ???-???-???-???-???-? ??-???- Negative 150 -???-???-???-???-???- ???-???-???-???-???-? ??-???- SM- co dysur ia, culture sent 12/23/23 -???-???-???-???-???- ???-???-???-???-???-? ??-???- 20w 2d 148 lb (+7 lb) 124/77 Negative -???-???-???-???-???- ???-???-???-???-???-? ??-???- Negative 156 -???-???-???-???-???- ???-???-???-???-???-? ??-???- LC- no vb/cr amping. normal anatomy scan. sciatic discomfort- stretches recommended. 01/20/24 -???-???-???-???-???- ???-???-???-???-???-? ??-???- 24w 2d 155 lb 6 oz (+14 lb 6 oz) 116/75 Nega (more content not included)... Normal [facility] - Chemistry and C hemistry - challengeOrdered By: Lyla Taylor on 04-25-2024 Glucose Ql (U) Negative [facility] - UrinalysisOrder ed By: Lyla Taylor on 04-25-2024 Protein Ql (U) Negative [facility] Ambulance Paramedic Office Visit Reporton 04-25-2024 Ambulance Paramedic Office Visit Report [facility]'s [address], [address] [place] [address] OFFICE VISIT Date of Service: 04/25/24 MR#: [id number] Acct: [id number] Name: EFRAIN VARGAS Rep #: [id number] : 2000 Provider: Dr. Lyla shaw MD Age/Sex: 24/F Location: [facility] [place] Status: Signed Intake Vital Signs 02/14/24 09:56 04/19/24 11:35 04/25/24 10:01 Height 5 ft 5 in 5 ft 5 in 5 ft 5 in Weight: 173 lb 6 oz BMI 28.8 BP 117/69 Intake Visit Reasons: 38 WK OB [employer] Supervisor Required: No Is patient in pain?: No Feel stressed/tense/nervou s/anxious/difficulty sleeping: not at all Allergies No Known Allergies Allergy (Verified 04/25/24 10:02) Medications ???Medication ???Instructions ???Recorded ???Confirmed ???Type multivit-min no.71-iron fum 28 cap PO 10/19/23 04/25/24 History mg-folate no.1 1 mg-dha 300 mg capsule (PNV-[facility]) ferrous gluconate 324 mg (37.5 mg 324 mg PO QDAY #90 tabs 02/14/24 04/25/24 Rx iron) tablet budesonide 90 mcg/actuation breath 2 inh inhalation BID #1 ea 03/1404/25/24 Rx activated powder inhaler Last Menstrual Period: 08/05/23 Zika: Zika virus screening: Negative : No PFSH PFS Surgical History History of tonsillectomy and adenoidectomy Family History Grandmother Cancer Maternal- Gma's Twin Sister Brain Cancer Normal stillborn 30wks gestation Social History adopted: No household members: spouse current occupational status: employed 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 [employer] current occupational exposures/hazards: No pets and animals: Yes (Avoid litter box) pets and animals: cat(s) and dog(s) history of recent travel: Yes ( and ) out of state: Yes out of country: Yes sexually active: Yes Smoking Status: Former smoker quit date: 04/07/21 Electronic Cigarette Use: with nicotine alcohol intake: current alcohol intake frequency: holidays/special occasions only details: Not while substance use type: does not use well-balanced diet: daily or most days caffeine: No eating out: 1-3 times/week during the past year weight has: remained stable what type of physical activity do you participate in: none delphine/anabaptism: Mu-Ism seatbelt use: sometimes do you feel safe at home: Yes additional social history: [employer] History 1 Elective abortions Hx Para 0 Spontaneous abortions Hx # Term Pregnancies Ectopic pregnancies Hx # Pregnancies Multiple births # of living children HPI 38 WK OB Details: EFRAIN VARGAS is a 24 year old who presents for routine OB visit. OB Visit ESTELA Calculator Estimated Delivery Date Method Current WG Current Estimate 05/09/24 Ultrasound #1 38w 0d Other Estimates 05/11/24 LMP (Certain) 37w 5d Expected Delivery Route/Plan Labor Preferences- CB/BF classes: enc labor support person: [place] labor intervention preferences: [] pain management options preferred: limited if possible cut cord/dad catch: yes : yes PP control planned: discussed discussed possible routes of delivery and associated risks: [] special requests: [] Specific Issue/Plans Covid status: [] Flu vaccine: given Tdap vaccine: [] Rhogam: NA LARC form signed: yes Problem list reviewed and updated with the most current plan of care details and appropriate orders placed. Relevant counseling for the gestational age provided. Continue routine care and follow up unless otherwise noted in visit notes/problem list details Initial Weight: 141 lb Date -???-???-???-???-???- ???-???-???-???-???-? ??-???- EGA Weight BP Urine Prot -???-???-???-???-???- ???-???-???-???-???-? ??-???- Glucose FHR FuHt Pres Dilation -???-???-???-???-???- ???-???-???-???-???-? ??-???- Effaced St Visit Note 10/21/23 -???-???-???-???-???- ???-???-???-???-???-? ??-???- 11w 2d 141 lb (+0 oz) 128/75 -???-???-???-???-???- ???-???-???-???-???-? ??-???- 168 -???-???-???-???-???- ???-???-???-???-???-? ??-???- KW- CRL cons with dates. Accepts NIPT and carrier. 11/18/23 -???-???-???-???-???- ???-???-???-???-???-? ??-???- 15w 2d 143 lb (+2 lb) 109/72 Negative -???-???-???-???-???- ???-???-???-???-???-? ??-???- Negative 150 -???-???-???-???-???- ???-???-???-???-???-? ??-???- SM- co dysur ia, culture sent 12/23/23 -???-???-???-???-???- ???-???-???-???-???-? ??-???- 20w 2d 148 lb (+7 lb) 124/77 Negative -???-???-???-???-???- ???-???-???-???-???-? ??-???- Negative 156 -???-???-???-???-???- ???-???-???-???-???-? ??-???- LC- no vb/cr amping. normal anatomy scan. sciatic discomfort- stret (more content not included)... Normal [facility] (ROM) Rupture Of Membraneson 04-19-2024 ROM Negative Normal Negative [facility] Comment on above: Result Comment: Amni otic fluid not present indicates No Rupture of Membranes at time of specimen collection. Performed By: #### L 205.1000 #### [facility] [address] [place], [address] Laboratory - Chemistry and C hemistry - challengeOrdered By: Keke Flores on 04-19-2024 Glucose Ql (U) Negative [facility] - UrinalysisOrder ed By: Keke Flores on 04-19-2024 Protein Ql (U) Negative [facility] Ambulance Paramedic Office Visit Reporton 04-19-2024 Ambulance Paramedic Office Visit Report [facility]'s [address] [place] [address] OFFICE VISIT Date of Service: 04/19/24 MR#: [id number] Acct: [id number] Name: EFRAIN VARGAS Rep #: [id number] : 2000 Provider: Dr. Keke Cadena DO Age/Sex: 24/F Location: [facility] [place] Status: Signed Intake Vital Signs 02/14/24 09:56 04/12/24 10:26 04/19/24 11:34 04/19/24 11:35 Height 5 ft 5 in 5 ft 5 in 5 ft 5 in 5 ft 5 in Weight: 172 lb 8 oz BMI 28.7 BP 119/77 Intake Visit Reasons: 37 WK OB Metal Fabricating Supervisor Required: No Is patient in pain?: No Allergies No Known Allergies Allergy (Verified 04/19/24 11:34) Medications ???Medication ???Instructions ???Recorded ???Confirmed ???Type multivit-min no.71-iron fum 28 cap PO 10/19/23 04/19/24 History mg-folate no.1 1 mg-dha 300 mg capsule ([facility]) ferrous gluconate 324 mg (37.5 mg 324 mg PO QDAY #90 tabs 02/14/24 04/19/24 Rx iron) tablet budesonide 90 mcg/actuation breath 2 inh inhalation BID #1 ea 03/1404/19/24 Rx activated powder inhaler Last Menstrual Period: 08/05/23 Zika: Zika virus screening: Negative : No [facility] Surgical History History of tonsillectomy and adenoidectomy Family History Grandmother Cancer Maternal- Gma's Twin Sister Brain Cancer Normal stillborn 30wks gestation Social History adopted: No household members: spouse current occupational status: employed 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 [employer] current occupational exposures/hazards: No pets and animals: Yes (Avoid litter box) pets and animals: cat(s) and dog(s) history of recent travel: Yes ([employer] and [facility]-[place]) out of state: Yes out of country: Yes sexually active: Yes Smoking Status: Former smoker quit date: 04/07/21 Electronic Cigarette Use: with nicotine alcohol intake: current alcohol intake frequency: holidays/special occasions only details: Not while substance use type: does not use well-balanced diet: daily or most days caffeine: No eating out: 1-3 times/week during the past year weight has: remained stable what type of physical activity do you participate in: none delphine/anabaptism: Mu-Ism seatbelt use: sometimes do you feel safe at home: Yes additional social history: [employer] History 1 Elective abortions Hx Para 0 Spontaneous abortions Hx # Term Pregnancies Ectopic pregnancies Hx # Pregnancies Multiple births # of living children HPI 37 WK OB Details: EFRAIN VARGAS is a 24 year old who presents for routine OB visit. OB Visit ESTELA Calculator Estimated Delivery Date Method Current WG Current Estimate 05/09/24 Ultrasound #1 37w 1d Other Estimates 05/11/24 LMP (Certain) 36w 6d Expected Delivery Route/Plan Labor Preferences- CB/BF classes: enc labor support person: [place] labor intervention preferences: [] pain management options preferred: limited if possible cut cord/dad catch: yes : yes PP control planned: discussed discussed possible routes of delivery and associated risks: [] special requests: [] Specific Issue/Plans Covid status: [] Flu vaccine: given Tdap vaccine: [] Rhogam: NA LARC form signed: yes Problem list reviewed and updated with the most current plan of care details and appropriate orders placed. Relevant counseling for the gestational age provided. Continue routine care and follow up unless otherwise noted in visit notes/problem list details Initial Weight: 141 lb Date -???-???-???-???-???- ???-???-???-???-???-? ??-???- EGA Weight BP Urine Prot -???-???-???-???-???- ???-???-???-???-???-? ??-???- Glucose FHR FuHt Pres Dilation -???-???-???-???-???- ???-???-???-???-???-? ??-???- Effaced St Visit Note 10/21/23 -???-???-???-???-???- ???-???-???-???-???-? ??-???- 11w 2d 141 lb (+0 oz) 128/75 -???-???-???-???-???- ???-???-???-???-???-? ??-???- 168 -???-???-???-???-???- ???-???-???-???-???-? ??-???- KW- CRL cons with dates. Accepts NIPT and carrier. 11/18/23 -???-???-???-???-???- ???-???-???-???-???-? ??-???- 15w 2d 143 lb (+2 lb) 109/72 Negative -???-???-???-???-???- ???-???-???-???-???-? ??-???- Negative 150 -???-???-???-???-???- ???-???-???-???-???-? ??-???- SM- co dysur ia, culture sent 12/23/23 -???-???-???-???-???- ???-???-???-???-???-? ??-???- 20w 2d 148 lb (+7 lb) 124/77 Negative -???-???-???-???-???- ???-???-???-???-???-? ??-???- Negative 156 -???-???-???-???-???- ???-???-???-???-???-? ??-???- LC- no vb/cr amping. normal anatomy scan. sciatic discomfort- stretches recommended. 01/20/24 -? (more content not included)... Normal [facility] Testing for ruptured membran esOrdered By: Keke Flores on 04-19-2024 Vaginal Amniotic Fluid Detection Negative Negative [facility] Comment on above: Amniotic fluid not p resent indicates No Rupture of FetalMembranes at time of specimen collection. Rule out Beta Strep (Grp. B) on 04-16-2024 GORAN Streptococcus agalactiae (B) Amount Growth Growth Streptococcus agalactiae (B): REACTION Ampicillin Islt DOMINICK <=0.25 cefTRIAXone Islt DOMINICK <=0.12 S Clindamycin Islt DOMINICK >=1 R Clindamycin.induced Susc Islt NEG Linezolid Islt DOMINICK <=2 S Vancomycin Islt DOMINICK 0.5 S Normal [facility] Comment on above: Performed By: #### M 100.6022 #### [facility] [address] [place], [place], [id number] Laboratory - Chemistry and C hemistry - challengeOrdered By: Lyla Taylor on 04-12-2024 Glucose Ql (U) Negative [facility] - UrinalysisOrder ed By: Lyla Taylor on 04-12-2024 Protein Ql (U) Negative [facility] Ambulance Paramedic Office Visit Reporton 04-12-2024 Ambulance Paramedic Office Visit Report [facility] [address], [address] [place] [address] OFFICE VISIT Date of Service: 04/12/24 MR#: [id number] Acct: [id number] Name: EFRAIN VARGAS Rep #: [id number] : 2000 Provider: Dr. Lyla shaw MD Age/Sex: 24/F Location: [facility] Status: Signed Intake Vital Signs 02/14/24 09:56 04/12/24 10:26 Height 5 ft 5 in 5 ft 5 in Weight: 170 lb 4 oz BMI 28.3 BP 112/74 Intake Visit Reasons: 36 WK OB Metal Fabricating Supervisor Required: No Is patient in pain?: No Feel stressed/tense/nervou s/anxious/difficulty sleeping: not at all Allergies No Known Allergies Allergy (Verified 04/12/24 10:27) Medications ???Medication ???Instructions ???Recorded ???Confirmed ???Type multivit-min no.71-iron fum 28 cap PO 10/19/23 04/12/24 History mg-folate no.1 1 mg-dha 300 mg capsule ([facility]) ferrous gluconate 324 mg (37.5 mg 324 mg PO QDAY #90 tabs 02/14/24 04/12/24 Rx iron) tablet budesonide 90 mcg/actuation breath 2 inh inhalation BID #1 ea 03/1404/12/24 Rx activated powder inhaler Last Menstrual Period: 08/05/23 Zika: Zika virus screening: Negative : No [facility] Surgical History History of tonsillectomy and adenoidectomy Family History Grandmother Cancer Maternal- Gma's Twin Sister Brain Cancer Normal stillborn 30wks gestation Social History adopted: No household members: spouse current occupational status: employed 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 [employer] current occupational exposures/hazards: No pets and animals: Yes (Avoid litter box) pets and animals: cat(s) and dog(s) history of recent travel: Yes ( and -[place]) out of state: Yes out of country: Yes sexually active: Yes Smoking Status: Former smoker quit date: 04/07/21 Electronic Cigarette Use: with nicotine alcohol intake: current alcohol intake frequency: holidays/special occasions only details: Not while substance use type: does not use well-balanced diet: daily or most days caffeine: No eating out: 1-3 times/week during the past year weight has: remained stable what type of physical activity do you participate in: none delphine/anabaptism: Mu-Ism seatbelt use: sometimes do you feel safe at home: Yes additional social history: [employer] History 1 Elective abortions Hx Para 0 Spontaneous abortions Hx # Term Pregnancies Ectopic pregnancies Hx # Pregnancies Multiple births # of living children HPI 36 WK OB Details: EFRAIN VARGAS is a 24 year old who presents for routine OB visit. OB Visit ESTELA Calculator Estimated Delivery Date Method Current WG Current Estimate 05/09/24 Ultrasound #1 36w 1d Other Estimates 05/11/24 LMP (Certain) 35w 6d Expected Delivery Route/Plan Labor Preferences- CB/BF classes: enc labor support person: [place] labor intervention preferences: [] pain management options preferred: limited if possible cut cord/dad catch: yes : yes PP control planned: discussed discussed possible routes of delivery and associated risks: [] special requests: [] Specific Issue/Plans Covid status: [] Flu vaccine: given Tdap vaccine: [] Rhogam: NA LARC form signed: yes Problem list reviewed and updated with the most current plan of care details and appropriate orders placed. Relevant counseling for the gestational age provided. Continue routine care and follow up unless otherwise noted in visit notes/problem list details Initial Weight: 141 lb Date -???-???-???-???-???- ???-???-???-???-???-? ??-???- EGA Weight BP Urine Prot -???-???-???-???-???- ???-???-???-???-???-? ??-???- Glucose FHR FuHt Pres Dilation -???-???-???-???-???- ???-???-???-???-???-? ??-???- Effaced St Visit Note 10/21/23 -???-???-???-???-???- ???-???-???-???-???-? ??-???- 11w 2d 141 lb (+0 oz) 128/75 -???-???-???-???-???- ???-???-???-???-???-? ??-???- 168 -???-???-???-???-???- ???-???-???-???-???-? ??-???- KW- CRL cons with dates. Accepts NIPT and carrier. 11/18/23 -???-???-???-???-???- ???-???-???-???-???-? ??-???- 15w 2d 143 lb (+2 lb) 109/72 Negative -???-???-???-???-???- ???-???-???-???-???-? ??-???- Negative 150 -???-???-???-???-???- ???-???-???-???-???-? ??-???- SM- co dysur ia, culture sent 12/23/23 -???-???-???-???-???- ???-???-???-???-???-? ??-???- 20w 2d 148 lb (+7 lb) 124/77 Negative -???-???-???-???-???- ???-???-???-???-???-? ??-???- Negative 156 -???-???-???-???-???- ???-???-???-???-???-? ??-???- LC- no vb/cr amping. normal anatomy scan. sciatic discomfort- stretches recommended. 01/19 (more content not included)... Normal [facility] Screening beta-hemolytic Str eptococcus cultureOrdered By: Lyla Taylor on 04-12-2024 Beta-hemolytic Streptococcus culture Streptococcus agalactiae (B) Abnormal [facility] Group B Streptococcus Culture Streptococcus agalactiae (B) Abnormal [facility] Absolute lymphocyte countOrd ered By: Lyla Chankaren on 03-30-2024 Lymphocytes Auto (Unsp spec) [#/Vol] 1.29 10*3/uL 0.83-4.51 [facility] Absolute neutrophil countOrd ered By: Lyla Chankaren on 03-30-2024 Neutrophils (Bld) [#/Vol] 7.3 10*3/uL 2.0-7.7 [facility] Automated lymphocyte count a s percentage of total leukocytesOrdered By: Lyla Chankaren on 03-30-2024 Lymphocytes/100 WBC Auto (Unsp spec) 14.2 % Low 19-41 [facility] Basophil percentageOrdered B y: Lyla Chankaren on 03-30-2024 Basophils/100 WBC (Bld) 0.2 % 0-1 [facility] CBC W/Diff, Automatedon 03-11 Absolute Lymph 1.29 X10 3/uL Normal 0.83-4.51 [facility] Comment on above: Performed By: #### L 100.0100 ####[facility] [address] [place], [address] Absolute Neut 7.3 X10 3/uL Normal 2.0-7.7 [facility] Comment on above: Performed By: #### L 100.0100 ####[facility] [address] [place], [address] Basophils/100 WBC (Bld) 0.2 % Normal 0-1 [facility] Comment on above: Performed By: #### L 100.0100 ####[facility] [address] [place], [address] Eosinophils/100 WBC (Bld) 0.7 % Normal 0-5 [facility] Comment on above: Performed By: #### L 100.0100 ####[facility] [address] [place], [address] Erythrocyte distribution width (RBC) [Ratio] 15.8 % High 11.6-14.6 [facility] Comment on above: Performed By: #### L 100.0100 ####[facility] [address] [place], [address] Hematocrit (Bld) [Volume fraction] 30.0 % Low 37-47 [facility] Comment on above: Performed By: #### L 100.0100 ####[facility] [address] [place], [address] Hemoglobin (Bld) [Mass/Vol] 10.2 g/dL Low 12.0-15.0 [facility] Comment on above: Performed By: #### L 100.0100 ####[facility] [address] [place], [address] IG% 0.600 Normal 0.0-0.9 [facility] Comment on above: Result Comment: IG% - Immature Granulocytes (promyelocytes, myelocytes and metamyelocytes) > 1% indicates that a LEFT SHIFT is Present. Performed By: #### L 100.0100 ####[facility] [address] [place], [address] Lymphocytes/100 WBC (Bld) 14.2 % Low 19-41 [facility] Comment on above: Performed By: #### L 100.0100 ####[facility] [address] [place], [address] MCH (RBC) [Entitic mass] 33.0 pg High 27.0-32.0 [facility] Comment on above: Performed By: #### L 100.0100 ####[facility] [address] [place], [address] MCHC (RBC) [Mass/Vol] 34.0 g/dL Normal 32-36 [facility] Comment on above: Performed By: #### L 100.0100 ####[facility] [address] [place], [address] MCV (RBC) [Entitic vol] 97.1 fL Normal 81-99 [facility] Comment on above: Performed By: #### L 100.0100 ####[facility] [address] [place], [address] Monocytes/100 WBC (Bld) 4.4 % Normal 0-10 [facility] Comment on above: Performed By: #### L 100.0100 ####[facility] [address] [place], [address] Neutrophils/100 WBC (Bld) 79.9 % High 47-70 [facility] Comment on above: Performed By: #### L 100.0100 ####[facility] [address] [place], [address] Nucleated RBC (Bld) [#/Vol] 0 10*3/uL Normal 0-5 [facility] Comment on above: Performed By: #### L 100.0100 ####[facility] [address] [place], [address] Platelet mean volume (Bld) [Entitic vol] 10.4 fL Normal 6.2-12.0 [facility] Comment on above: Performed By: #### L 100.0100 ####[facility] [address] [place], [address] Platelets (Bld) [#/Vol] 217 10*3/uL Normal 150-450 [facility] Comment on above: Performed By: #### L 100.0100 ####[facility] [address] [place], [address] RBC (Bld) [#/Vol] 3.09 10*6/uL Low 4.2-5.4 [facility] Comment on above: Performed By: #### L 100.0100 ####[facility] [address] [place], [address] RDW SD 55.1 fl High 35.1-43.9 [facility] Comment on above: Performed By: #### L 100.0100 ####[facility] [address] [place], [address] WBC (Bld) [#/Vol] 9.1 10*3/uL Normal 4.4-11.0 [facility] Comment on above: Performed By: #### L 100.0100 ####[facility] [address] [place], [address] Eosinophil percentageOrdered By: Lyla Taylor on 03-30-2024 Eosinophils/100 WBC (Bld) 0.7 % 0-5 [facility] Erythrocyte distribution wid th ratioOrdered By: Lyla Taylor on 03-30-2024 Erythrocyte distribution width (RBC) [Ratio] 15.8 % High 11.6-14.6 [facility] Erythrocyte distribution wid th standard deviationOrdered By: Lyla Taylor on 03-30-2024 Erythrocyte distribution width (RBC) [Entitic vol] 55.1 fL High 35.1-43.9 [facility] Erythrocyte distribution width (RBC) [Ratio] 55.1 fl High 35.1-43.9 [facility] Hematocrit Auto (Bld) [Volum e fraction]Ordered By: Lyla Taylor on 03-30-2024 Hematocrit (Bld) [Volume fraction] 30.0 % Low 37-47 [facility] Hemoglobin measurementOrdere d By: Lyla Taylor on 03-30-2024 Hemoglobin (Bld) [Mass/Vol] 10.2 g/dL Low 12.0-15.0 [facility] Immature granulocytes/100 WB C Auto (Bld)Ordered By: Lyla Taylor on 03-30-2024 Immature granulocytes/100 WBC (Bld) 0.600 % 0.0-0.9 [facility] Comment on above: IG% - Immature Granu locytes (promyelocytes, myelocytes and metamyelocytes) > 1% indicates that a LEFT SHIFT is Present. Laboratory - Chemistry and C hemistry - challengeOrdered By: Мария Lowe on 03-30-2024 Glucose Ql (U) Negative [facility] - UrinalysisOrder ed By: Мария Lowe on 03-30-2024 Protein Ql (U) Negative [facility] Lymphocytes Auto (Unsp spec) [#/Vol]Ordered By: Lyla Taylor on 03-30-2024 Lymphocytes (Bld) [#/Vol] 1.29 10*3/uL 0.83-4.51 [facility] Lymphocytes/100 WBC Auto (Un sp spec)Ordered By: Lyla Taylor on 03-30-2024 Lymphocytes/100 WBC (Bld) 14.2 % Low 19-41 [facility] MCV (mean corpuscular volume ) determinationOrdered By: Lyla Taylor on 03-30-2024 MCV (RBC) [Entitic vol] 97.1 fL 81-99 [facility] Mean corpuscular hemoglobin (MCH) determinationOrdered By: Lyla Taylor on 03-30-2024 MCH (RBC) [Entitic mass] 33.0 pg High 27.0-32.0 [facility] Mean corpuscular hemoglobin concentration (MCHC) determinationOrdered By: Lyla Taylor on 03-30-2024 MCHC (RBC) [Mass/Vol] 34.0 g/dL 32-36 [facility] Mean platelet volume determi nationOrdered By: Lyla Taylor on 03-30-2024 Platelet mean volume (Bld) [Entitic vol] 10.4 fL 6.2-12.0 [facility] Monocyte percentageOrdered B y: Lyla Taylor on 03-30-2024 Monocytes/100 WBC (Bld) 4.4 % 0-10 [facility] Neutrophil percentageOrdered By: Lyla Taylor on 03-30-2024 Neutrophils/100 WBC (Bld) 79.9 % High 47-70 [facility] Nucleated red blood cell per centageOrdered By: Lyla Taylor on 03-30-2024 Nucleated RBC/100 WBC (Bld) [Ratio] 0 % 0-5 [facility] Ambulance Paramedic Office Visit Reporton 03-30-2024 Ambulance Paramedic Office Visit Report [facility] [address], [address] [place] [address] OFFICE VISIT Date of Service: 03/30/24 MR#: [id number] Acct: [id number] Name: EFRAIN VARGAS Rep #: [id number] 3 : 2000 Provider: OZZIE Srivastava ams Age/Sex: 24/F Location: [facility] [place] Status: Signed Intake Vital Signs 02/14/24 09:56 03/14/24 11:04 03/30/24 13:00 03/30/24 13:01 Height 5 ft 5 in 5 ft 5 in 5 ft 5 in Weight: 162 lb 8 oz 167 lb 4 oz BMI 27.0 27.8 BP 121/75 H 136/86 H Intake Visit Reasons: 34 WK OB Metal Fabricating Supervisor Required: No Is patient in pain?: No Allergies No Known Allergies Allergy (Verified 03/30/24 13:00) Medications ???Medication ???Instructions ???Recorded ???Confirmed ???Type multivit-min no.71-iron fum 28 cap PO 10/19/23 03/30/24 History mg-folate no.1 1 mg-dha 300 mg capsule ([facility]) fosfomycin tromethamine 3 gram 3 g PO ONCE #1 ea 11/18/23 5 Rx oral packet ferrous gluconate 324 mg (37.5 mg 324 mg PO QDAY #90 tabs 02/14/24 03/30/24 Rx iron) tablet budesonide 90 mcg/actuation breath 2 inh inhalation BID #1 ea 03/1403/30/24 Rx activated powder inhaler Last Menstrual Period: 08/05/23 Zika: Zika virus screening: Negative : No Have you fallen in the past year?: No PFSH PFSH Surgical History History of tonsillectomy and adenoidectomy Family History Grandmother Cancer Maternal- Gma's Twin Sister Brain Cancer Normal stillborn 30wks gestation Social History adopted: No household members: spouse current occupational status: employed 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 [employer] current occupational exposures/hazards: No pets and animals: Yes (Avoid litter box) pets and animals: cat(s) and dog(s) history of recent travel: Yes ( and -August) out of state: Yes out of country: Yes sexually active: Yes Smoking Status: Former smoker quit date: 04/07/21 Electronic Cigarette Use: with nicotine alcohol intake: current alcohol intake frequency: holidays/special occasions only details: Not while substance use type: does not use well-balanced diet: daily or most days caffeine: No eating out: 1-3 times/week during the past year weight has: remained stable what type of physical activity do you participate in: none delphine/anabaptism: Mu-Ism seatbelt use: sometimes do you feel safe at home: Yes additional social history: [employer] History 1 Elective abortions Hx Para 0 Spontaneous abortions Hx # Term Pregnancies Ectopic pregnancies Hx # Pregnancies Multiple births # of living children HPI 34 WK OB Details: EFRAIN VARGAS is a 24 year old who presents for routine OB visit. OB Visit ESTELA Calculator Estimated Delivery Date Method Current WG Current Estimate 05/09/24 Ultrasound #1 34w 2d Other Estimates 05/11/24 LMP (Certain) 34w 0d Expected Delivery Route/Plan Labor Preferences- CB/BF classes: enc labor support person: [place] labor intervention preferences: [] pain management options preferred: limited if possible cut cord/dad catch: yes : yes PP control planned: discussed discussed possible routes of delivery and associated risks: [] special requests: [] Specific Issue/Plans Covid status: [] Flu vaccine: given Tdap vaccine: [] Rhogam: NA LARC form signed: yes Problem list reviewed and updated with the most current plan of care details and appropriate orders placed. Relevant counseling for the gestational age provided. Continue routine care and follow up unless otherwise noted in visit notes/problem list details Initial Weight: 141 lb Date -???-???-???-???-???- ???-???-???-???-???-? ??-???- EGA Weight BP Urine Prot -???-???-???-???-???- ???-???-???-???-???-? ??-???- Glucose FHR FuHt Pres Dilation -???-???-???-???-???- ???-???-???-???-???-? ??-???- Effaced St Visit Note 10/21/23 -???-???-???-???-???- ???-???-???-???-???-? ??-???- 11w 2d 141 lb (+0 oz) 128/75 -???-???-???-???-???- ???-???-???-???-???-? ??-???- 168 -???-???-???-???-???- ???-???-???-???-???-? ??-???- KW- CRL cons with dates. Accepts NIPT and carrier. 11/18/23 -???-???-???-???-???- ???-???-???-???-???-? ??-???- 15w 2d 143 lb (+2 lb) 109/72 Negative -???-???-???-???-???- ???-???-???-???-???-? ??-???- Negative 150 -???-???-???-???-???- ???-???-???-???-???-? ??-???- SM- co dysur ia, culture sent 11/15/24 -???-???-???-???-???- ???-???-???-???-???-? ??-???- 20w 2d 148 lb (+7 lb) 124/77 Negative -???-???-???-???-???- ???-???-???-???-???-? ??-???- Negative 156 -???-???-???-???-???- ???-?? (more content not included)... Normal [facility] Platelet countOrdered By: Rell Taylor on 03-30-2024 Platelets (Bld) [#/Vol] 217 10*3/uL 150-450 [facility] RBC Auto (Bld) [#/Vol]Ordere d By: Lyla Taylor on 03-30-2024 RBC (Bld) [#/Vol] 3.09 10*6/uL Low 4.2-5.4 [facility] White blood cell (WBC) count Ordered By: Lyla Taylor on 03-30-2024 WBC (Bld) [#/Vol] 9.1 10*3/uL 4.4-11.0 [facility] - Chemistry and C hemistry - challengeOrdered By: Lyla Taylor on 03-14-2024 Glucose Ql (U) Negative [facility] - UrinalysisOrder ed By: Lyla Taylor on 03-14-2024 Protein Ql (U) Negative [facility] Ambulance Paramedic Office Visit Reporton 03-14-2024 Ambulance Paramedic Office Visit Report [facility] [address], [address] [place] [address] OFFICE VISIT Date of Service: 03/14/24 MR#: [id number] Acct: [id number] Name: EFRAIN VARGAS Rep #: [id number] 4 : 2000 Provider: Dr. Lyla shaw MD Age/Sex: 24/F Location: [facility] [place] Status: Signed Intake Vital Signs 02/14/24 09:56 03/02/24 14:16 03/14/24 11:04 Height 5 ft 5 in 5 ft 5 in 5 ft 5 in Weight: 162 lb 8 oz BMI 27.0 BP 121/75 H Intake Visit Reasons: 32 WK OB Metal Fabricating Supervisor Required: No Is patient in pain?: No Feel stressed/tense/nervou s/anxious/difficulty sleeping: not at all Allergies No Known Allergies Allergy (Verified 03/14/24 11:05) Medications ???Medication ???Instructions ???Recorded ???Confirmed ???Type multivit-min no.71-iron fum 28 cap PO 10/19/23 03/14/24 History mg-folate no.1 1 mg-dha 300 mg capsule ([facility]) fosfomycin tromethamine 3 gram 3 g PO ONCE #1 ea 11/18/23 5 Rx oral packet ferrous gluconate 324 mg (37.5 mg 324 mg PO QDAY #90 tabs 02/14/24 03/14/24 Rx iron) tablet budesonide 90 mcg/actuation breath 2 inh inhalation BID #1 ea 03/1403/14/24 Rx activated powder inhaler Last Menstrual Period: 08/05/23 Zika: Zika virus screening: Negative : No Have you fallen in the past year?: No [facility] Surgical History History of tonsillectomy and adenoidectomy Family History Grandmother Cancer Maternal- Gma's Twin Sister Brain Cancer Normal stillborn 30wks gestation Social History adopted: No household members: spouse current occupational status: employed 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 [employer] current occupational exposures/hazards: No pets and animals: Yes (Avoid litter box) pets and animals: cat(s) and dog(s) history of recent travel: Yes ( and -August) out of state: Yes out of country: Yes sexually active: Yes Smoking Status: Former smoker quit date: 04/07/21 Electronic Cigarette Use: with nicotine alcohol intake: current alcohol intake frequency: holidays/special occasions only details: Not while substance use type: does not use well-balanced diet: daily or most days caffeine: No eating out: 1-3 times/week during the past year weight has: remained stable what type of physical activity do you participate in: none delphine/anabaptism: Mu-Ism seatbelt use: sometimes do you feel safe at home: Yes additional social history: [employer] History 1 Elective abortions Hx Para 0 Spontaneous abortions Hx # Term Pregnancies Ectopic pregnancies Hx # Pregnancies Multiple births # of living children HPI 32 WK OB Details: EFRAIN VARGAS is a 24 year old who presents for routine OB visit. OB Visit ESTELA Calculator Estimated Delivery Date Method Current WG Current Estimate 05/09/24 Ultrasound #1 32w 0d Other Estimates 05/11/24 LMP (Certain) 31w 5d Expected Delivery Route/Plan Labor Preferences- CB/BF classes: enc labor support person: [place] labor intervention preferences: [] pain management options preferred: limited if possible cut cord/dad catch: yes : yes PP control planned: discussed discussed possible routes of delivery and associated risks: [] special requests: [] Specific Issue/Plans Covid status: [] Flu vaccine: given Tdap vaccine: [] Rhogam: NA LARC form signed: yes Problem list reviewed and updated with the most current plan of care details and appropriate orders placed. Relevant counseling for the gestational age provided. Continue routine care and follow up unless otherwise noted in visit notes/problem list details Initial Weight: 141 lb Date -???-???-???-???-???- ???-???-???-???-???-? ??-???- EGA Weight BP Urine Prot -???-???-???-???-???- ???-???-???-???-???-? ??-???- Glucose FHR FuHt Pres Dilation -???-???-???-???-???- ???-???-???-???-???-? ??-???- Effaced St Visit Note 10/21/23 -???-???-???-???-???- ???-???-???-???-???-? ??-???- 11w 2d 141 lb (+0 oz) 128/75 -???-???-???-???-???- ???-???-???-???-???-? ??-???- 168 -???-???-???-???-???- ???-???-???-???-???-? ??-???- KW- CRL cons with dates. Accepts NIPT and carrier. 11/18/23 -???-???-???-???-???- ???-???-???-???-???-? ??-???- 15w 2d 143 lb (+2 lb) 109/72 Negative -???-???-???-???-???- ???-???-???-???-???-? ??-???- Negative 150 -???-???-???-???-???- ???-???-???-???-???-? ??-???- SM- co dysur ia, culture sent 12/23/23 -???-???-???-???-???- ???-???-???-???-???-? ??-???- 20w 2d 148 lb (+7 lb) 124/77 Negative -???-???-???-???-???- ???-???-???-???-???-? ??-???- N (more content not included)... Normal [facility] Laboratory - Chemistry and C hemistry - challengeon 03-02-2024 Glucose Ql (U) Negative [facility] - Urinalysison Protein Ql (U) Negative [facility] Ambulance Paramedic Office Visit Reporton 03-02-2024 Ambulance Paramedic Office Visit Report [facility] [address], [address] [place] [address] OFFICE VISIT Date of Service: 03/02/24 MR#: [id number] Acct: [id number] Name: EFRAIN VARGAS Rep #: [id number] [birth year] : 2000 Provider: OZZIE Srivastava ams Age/Sex: 24/F Location: [facility] [place] Status: Signed Intake Vital Signs 02/14/24 09:56 03/02/24 14:14 03/02/24 14:16 Height 5 ft 5 in 5 ft 5 in 5 ft 5 in Weight: 162 lb BMI 26.9 BP 122/82 H Intake Visit Reasons: 30 WK OB Metal Fabricating Supervisor Required: No Is patient in pain?: No Allergies No Known Allergies Allergy (Verified 03/02/24 14:14) Medications ???Medication ???Instructions ???Recorded ???Confirmed ???Type multivit-min no.71-iron fum 28 cap PO 10/19/23 03/02/24 History mg-folate no.1 1 mg-dha 300 mg capsule ([facility]) fosfomycin tromethamine 3 gram 3 g PO ONCE #1 ea 11/18/23 03/02/24 Rx oral packet ferrous gluconate 324 mg (37.5 mg 324 mg PO QDAY #90 tabs 02/14/24 03/02/24 Rx iron) tablet Last Menstrual Period: 08/05/23 Zika: Zika virus screening: Negative : Yes Have you fallen in the past year?: No PFSH PFSH Surgical History History of tonsillectomy and adenoidectomy Family History Grandmother Cancer Maternal- Gma's Twin Sister Brain Cancer Normal stillborn 30wks gestation Social History adopted: No household members: spouse current occupational status: employed 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 [employer] current occupational exposures/hazards: No pets and animals: Yes (Avoid litter box) pets and animals: cat(s) and dog(s) history of recent travel: Yes ( and -August) out of state: Yes out of country: Yes sexually active: Yes Smoking Status: Former smoker quit date: 04/07/21 Electronic Cigarette Use: with nicotine alcohol intake: current alcohol intake frequency: holidays/special occasions only details: Not while substance use type: does not use well-balanced diet: daily or most days caffeine: No eating out: 1-3 times/week during the past year weight has: remained stable what type of physical activity do you participate in: none delphine/anabaptism: Mu-Ism seatbelt use: sometimes do you feel safe at home: Yes additional social history: [employer] History 1 Elective abortions Hx Para 0 Spontaneous abortions Hx # Term Pregnancies Ectopic pregnancies Hx # Pregnancies Multiple births # of living children HPI 30 WK OB Details: EFRAIN VARGAS is a 24 year old who presents for routine OB visit. OB Visit ESTELA Calculator Estimated Delivery Date Method Current WG Current Estimate 05/09/24 Ultrasound #1 30w 2d Other Estimates 05/11/24 LMP (Certain) 30w 0d Expected Delivery Route/Plan Labor Preferences- CB/BF classes: enc labor support person: [place] labor intervention preferences: [] pain management options preferred: limited if possible cut cord/dad catch: yes : yes PP control planned: discussed discussed possible routes of delivery and associated risks: [] special requests: [] Specific Issue/Plans Covid status: [] Flu vaccine: given Tdap vaccine: [] Rhogam: NA LARC form signed: yes Problem list reviewed and updated with the most current plan of care details and appropriate orders placed. Relevant counseling for the gestational age provided. Continue routine care and follow up unless otherwise noted in visit notes/problem list details Initial Weight: 141 lb Date -???-???-???-???-???- ???-???-???-???-???-? ??-???- EGA Weight BP Urine Prot -???-???-???-???-???- ???-???-???-???-???-? ??-???- Glucose FHR FuHt Pres Dilation -???-???-???-???-???- ???-???-???-???-???-? ??-???- Effaced St Visit Note 10/21/23 -???-???-???-???-???- ???-???-???-???-???-? ??-???- 11w 2d 141 lb (+0 oz) 128/75 -???-???-???-???-???- ???-???-???-???-???-? ??-???- 168 -???-???-???-???-???- ???-???-???-???-???-? ??-???- KW- CRL cons with dates. Accepts NIPT and carrier. 11/18/23 -???-???-???-???-???- ???-???-???-???-???-? ??-???- 15w 2d 143 lb (+2 lb) 109/72 Negative -???-???-???-???-???- ???-???-???-???-???-? ??-???- Negative 150 -???-???-???-???-???- ???-???-???-???-???-? ??-???- SM- co dysur ia, culture sent 12/23/23 -???-???-???-???-???- ???-???-???-???-???-? ??-???- 20w 2d 148 lb (+7 lb) 124/77 Negative -???-???-???-???-???- ???-???-???-???-???-? ??-???- Negative 156 -???-???-???-???-???- ???-???-???-???-???-? ??-???- LC- no vb/cr amping. normal anatomy scan. sciatic discomfort- stretches recommended. 01/20/24 -???-???-???-???-???- ???-???-???-???-???-? ?? (more content not included)... Normal [facility] Absolute neutrophil countOrd ered By: Keke Flores on 2024 Neutrophils (Bld) [#/Vol] 7.9 10*3/uL High 2.0-7.7 [facility] Basophil percentageOrdered B y: Keke Flores on 2024 Basophils/100 WBC (Bld) 0.3 % 0-1 [facility] Eosinophil percentageOrdered By: Keke Flores on 2024 Eosinophils/100 WBC (Bld) 1.1 % 0-5 [facility] Erythrocyte distribution wid th ratioOrdered By: Keke Flores on 2024 Erythrocyte distribution width (RBC) [Ratio] 15.1 % High 11.6-14.6 [facility] Erythrocyte distribution wid th standard deviationOrdered By: Keke Flores on 2024 Erythrocyte distribution width (RBC) [Entitic vol] 52.9 fL High 35.1-43.9 [facility] Glucose 1 Hr post 50 g gluco se PO [Mass/Vol]Ordered By: Keke Flores on 2024 Glucose [Mass/Vol] 132 mg/dL 70-140 [facility] HIV 1+2 Ab+HIV1 p24 Ag IA Ql Ordered By: Keke Flores on 2024 HIV (1&2) Antibody Non-Reactive Nonreactive [facility] Hematocrit Auto (Bld) [Volum e fraction]Ordered By: Keke Flores on 2024 Hematocrit (Bld) [Volume fraction] 28.9 % Low 37-47 [facility] Hemoglobin measurementOrdere d By: Keke Flores on 2024 Hemoglobin (Bld) [Mass/Vol] 9.8 g/dL Low 12.0-15.0 [facility] Immature granulocytes/100 WB C Auto (Bld)Ordered By: Keke Flores on 2024 Immature granulocytes/100 WBC (Bld) 0.600 % 0.0-0.9 [facility] Comment on above: IG% - Immature Granu locytes (promyelocytes, myelocytes and metamyelocytes) > 1% indicates that a LEFT SHIFT is Present. Laboratory - Chemistry and C hemistry - challengeon 2024 Glucose Ql (U) Negative [facility] Laboratory - Urinalysison Protein Ql (U) Negative [facility] Lymphocytes Auto (Unsp spec) [#/Vol]Ordered By: Keke Flores on 2024 Lymphocytes (Bld) [#/Vol] 1.38 10*3/uL 0.83-4.51 [facility] Lymphocytes/100 WBC Auto (Un sp spec)Ordered By: Keke Flores on 2024 Lymphocytes/100 WBC (Bld) 13.8 % Low 19-41 [facility] MCV (mean corpuscular volume ) determinationOrdered By: Keke Flores on 2024 MCV (RBC) [Entitic vol] 95.1 fL 81-99 [facility] Mean corpuscular hemoglobin (MCH) determinationOrdered By: Keke Flores on 2024 MCH (RBC) [Entitic mass] 32.2 pg High 27.0-32.0 [facility] Mean corpuscular hemoglobin concentration (MCHC) determinationOrdered By: Keke Flores on 2024 MCHC (RBC) [Mass/Vol] 33.9 g/dL 32-36 [facility] Mean platelet volume determi nationOrdered By: Keke Flores on 2024 Platelet mean volume (Bld) [Entitic vol] 9.9 fL 6.2-12.0 [facility] Monocyte percentageOrdered B y: Keke Flores on 2024 Monocytes/100 WBC (Bld) 5.2 % 0-10 [facility] Neutrophil percentageOrdered By: Keke Flores on 2024 Neutrophils/100 WBC (Bld) 79.0 % High 47-70 [facility] Nucleated red blood cell per centageOrdered By: Keke Flores on 2024 Nucleated RBC/100 WBC (Bld) [Ratio] 0 % 0-5 [facility] Ambulance Paramedic Office Visit Reporton 2024 Ambulance Paramedic Office Visit Report [facility] [address], [address] [place] [address] OFFICE VISIT Date of Service: 02/14/24 MR#: [id number] Acct: [id number] Name: EFRAIN VARGAS Rep #: [id number] 4 : 2000 Provider: BERTRAND varela Age/Sex: 23/F Location: [facility] [place] Status: Signed Intake Vital Signs 12/23/23 15:53 01/20/24 15:44 02/14/24 09:56 02/14/24 09:56 Height 5 ft 5 in 5 ft 5 in 5 ft 5 in 5 ft 5 in Weight: 160 lb BMI 26.6 BP 136/85 H Intake Visit Reasons: 28 wk ob Metal Fabricating Supervisor Required: No Is patient in pain?: No Allergies No Known Allergies Allergy (Verified 02/14/24 09:52) Medications ???Medication ???Instructions ???Recorded ???Confirmed ???Type multivit-min no.71-iron fum 28 cap PO 10/19/23 02/14/24 History mg-folate no.1 1 mg-dha 300 mg capsule ([facility]) fosfomycin tromethamine 3 gram 3 g PO ONCE #1 ea 11/18/23 02/14/24 Rx oral packet Last Menstrual Period: 08/05/23 Zika: Zika virus screening: Negative : Yes Have you fallen in the past year?: No PFSH PFSH Surgical History History of tonsillectomy and adenoidectomy Family History Grandmother Cancer Maternal- [place]'s Twin Sister Brain Cancer Normal stillborn 30wks gestation Social History adopted: No household members: spouse current occupational status: employed 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 [employer] current occupational exposures/hazards: No pets and animals: Yes (Avoid litter box) pets and animals: cat(s) and dog(s) history of recent travel: Yes ( and ) out of state: Yes out of country: Yes sexually active: Yes Smoking Status: Former smoker quit date: 04/07/21 Electronic Cigarette Use: with nicotine alcohol intake: current alcohol intake frequency: holidays/special occasions only details: Not while substance use type: does not use well-balanced diet: daily or most days caffeine: No eating out: 1-3 times/week during the past year weight has: remained stable what type of physical activity do you participate in: none delphine/anabaptism: Mu-Ism seatbelt use: sometimes do you feel safe at home: Yes additional social history: [employer] History 1 Elective abortions Hx Para 0 Spontaneous abortions Hx # Term Pregnancies Ectopic pregnancies Hx # Pregnancies Multiple births # of living children HPI 28 wk ob Details: EFRAIN VARGAS is a 23 year old who presents for routine OB visit. OB Visit ESTELA Calculator Estimated Delivery Date Method Current WG Current Estimate 05/09/24 Ultrasound #1 27w 6d Other Estimates 05/11/24 LMP (Certain) 27w 4d Expected Delivery Route/Plan Labor Preferences- CB/BF classes: enc labor support person: [place] labor intervention preferences: [] pain management options preferred: limited if possible cut cord/dad catch: yes : yes PP control planned: discussed discussed possible routes of delivery and associated risks: [] special requests: [] Specific Issue/Plans Covid status: [] Flu vaccine: given Tdap vaccine: [] Rhogam: NA LARC form signed: yes Problem list reviewed and updated with the most current plan of care details and appropriate orders placed. Relevant counseling for the gestational age provided. Continue routine care and follow up unless otherwise noted in visit notes/problem list details Initial Weight: 141 lb Date -???-???-???-???-???- ???-???-???-???-???-? ??-???- EGA Weight BP Urine Prot -???-???-???-???-???- ???-???-???-???-???-? ??-???- Glucose FHR FuHt Pres Dilation -???-???-???-???-???- ???-???-???-???-???-? ??-???- Effaced St Visit Note 10/21/23 -???-???-???-???-???- ???-???-???-???-???-? ??-???- 11w 2d 141 lb (+0 oz) 128/75 -???-???-???-???-???- ???-???-???-???-???-? ??-???- 168 -???-???-???-???-???- ???-???-???-???-???-? ??-???- KW- CRL cons with dates. Accepts NIPT and carrier. 11/18/23 -???-???-???-???-???- ???-???-???-???-???-? ??-???- 15w 2d 143 lb (+2 lb) 109/72 Negative -???-???-???-???-???- ???-???-???-???-???-? ??-???- Negative 150 -???-???-???-???-???- ???-???-???-???-???-? ??-???- SM- co dysur ia, culture sent 12/23/23 -???-???-???-???-???- ???-???-???-???-???-? ??-???- 20w 2d 148 lb (+7 lb) 124/77 Negative -???-???-???-???-???- ???-???-???-???-???-? ??-???- Negative 156 -???-???-???-???-???- ???-???-???-???-???-? ??-???- LC- no vb/cr amping. normal anatomy scan. sciatic discomfort- stretches recommended. 01/20/24 -???-???-???-???-???- ???-???-???-???-???-? ??-???- 24w 2d 155 lb 6 oz (+14 lb 6 oz) 116/75 Negative -???-???-?? (more content not included)... Normal [facility] Platelet countOrdered By: Balta Flores on 2024 Platelets (Bld) [#/Vol] 239 10*3/uL 150-450 [facility] RBC Auto (Bld) [#/Vol]Ordere d By: Keke Flores on 2024 RBC (Bld) [#/Vol] 3.04 10*6/uL Low 4.2-5.4 [facility] Treponema sp Ab Ql (S)Ordere d By: Keke Flores on 2024 Syphilis Total Antibody Non-Reactive [facility] White blood cell (WBC) count Ordered By: Keke Flores on 2024 WBC (Bld) [#/Vol] 10.0 10*3/uL 4.4-11.0 [facility] Laboratory - Chemistry and C hemistry - challengeon 01-20-2024 Glucose Ql (U) Negative [facility] Laboratory - Urinalysison Protein Ql (U) Negative [facility] Ambulance Paramedic Office Visit Reporton 01-20-2024 Ambulance Paramedic Office Visit Report [facility] [address], [address] [place] [address] OFFICE VISIT Date of Service: 01/20/24 MR#: [id number] Acct: [id number] Name: EFRAIN VARGAS Rep #: [id number] 1 : 2000 Provider: Dr. Keke Cadena DO Age/Sex: 23/F Location: [facility] [place] Status: Signed Intake Vital Signs 12/23/23 15:53 01/20/24 15:42 01/20/24 15:44 Height 5 ft 5 in 5 ft 5 in 5 ft 5 in Weight: 155 lb 6 oz BMI 25.8 BP 116/75 Intake Visit Reasons: 24 wk ob Metal Fabricating Supervisor Required: No Is patient in pain?: No Allergies No Known Allergies Allergy (Verified 01/20/24 15:42) Medications ???Medication ???Instructions ???Recorded ???Confirmed ???Type multivit-min no.71-iron fum 28 cap PO 10/19/23 01/20/24 History mg-folate no.1 1 mg-dha 300 mg capsule ([facility]) fosfomycin tromethamine 3 gram 3 g PO ONCE #1 ea 11/18/23 01/20/24 Rx oral packet Last Menstrual Period: 08/05/23 Zika: Zika virus screening: Negative : No PFSH PFSH Surgical History History of tonsillectomy and adenoidectomy Family History Grandmother Cancer Maternal- Gma's Twin Sister Brain Cancer Normal stillborn 30wks gestation Social History adopted: No household members: spouse current occupational status: employed 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 [employer] current occupational exposures/hazards: No pets and animals: Yes (Avoid litter box) pets and animals: cat(s) and dog(s) history of recent travel: Yes ( and -August) out of state: Yes out of country: Yes sexually active: Yes Smoking Status: Former smoker quit date: 04/07/21 Electronic Cigarette Use: with nicotine alcohol intake: current alcohol intake frequency: holidays/special occasions only details: Not while substance use type: does not use well-balanced diet: daily or most days caffeine: No eating out: 1-3 times/week during the past year weight has: remained stable what type of physical activity do you participate in: none delphine/anabaptism: Mu-Ism seatbelt use: sometimes do you feel safe at home: Yes additional social history: [employer] History 1 Elective abortions Hx Para 0 Spontaneous abortions Hx # Term Pregnancies Ectopic pregnancies Hx # Pregnancies Multiple births # of living children HPI 24 wk ob Details: EFRAIN VARGAS is a 23 year old who presents for routine OB visit. OB Visit ESTELA Calculator Estimated Delivery Date Method Current WG Current Estimate 05/09/24 Ultrasound #1 24w 2d Other Estimates 05/11/24 LMP (Certain) 24w 0d Expected Delivery Route/Plan Labor Preferences- CB/BF classes: [] labor support person: [] labor intervention preferences: [] pain management options preferred: [] cut cord/dad catch: [] : [] PP control planned: [] discussed possible routes of delivery and associated risks: [] special requests: [] Specific Issue/Plans Covid status: [] Flu vaccine: given Tdap vaccine: [] Rhogam: [] LARC form signed: [] Problem list reviewed and updated with the most current plan of care details and appropriate orders placed. Relevant counseling for the gestational age provided. Continue routine care and follow up unless otherwise noted in visit notes/problem list details Initial Weight: 141 lb Date -???-???-???-???-???- ???-???-???-???-???-? ??-???- EGA Weight BP Urine Prot -???-???-???-???-???- ???-???-???-???-???-? ??-???- Glucose FHR FuHt Pres Dilation -???-???-???-???-???- ???-???-???-???-???-? ??-???- Effaced St Visit Note 10/21/23 -???-???-???-???-???- ???-???-???-???-???-? ??-???- 11w 2d 141 lb (+0 oz) 128/75 -???-???-???-???-???- ???-???-???-???-???-? ??-???- 168 -???-???-???-???-???- ???-???-???-???-???-? ??-???- KW- CRL cons with dates. Accepts NIPT and carrier. 11/18/23 -???-???-???-???-???- ???-???-???-???-???-? ??-???- 15w 2d 143 lb (+2 lb) 109/72 Negative -???-???-???-???-???- ???-???-???-???-???-? ??-???- Negative 150 -???-???-???-???-???- ???-???-???-???-???-? ??-???- SM- co dysur ia, culture sent 12/23/23 -???-???-???-???-???- ???-???-???-???-???-? ??-???- 20w 2d 148 lb (+7 lb) 124/77 Negative -???-???-???-???-???- ???-???-???-???-???-? ??-???- Negative 156 -???-???-???-???-???- ???-???-???-???-???-? ??-???- LC- no vb/cr amping. normal anatomy scan. sciatic discomfort- stretches recommended. 01/20/24 -???-???-???-???-???- ???-???-???-???-???-? ??-???- 24w 2d 155 lb 6 oz (+14 lb 6 oz) 116/75 -???-???-???-???-???- ???-???-???-???-???-? ??-???- 160 26 -???-???-???-???-???- ???-???-???- (more content not included)... Normal [facility] Ambulance Paramedic Office Visit Reporton 12-23-2023 Ambulance Paramedic Office Visit Report [facility]'s [address], [address] [place] [address] OFFICE VISIT Date of Service: 12/23/23 MR#: [id number] Acct: [id number] Name: EFRAIN VARGAS Rep #: [id number] : 2000 Provider: OZZIE wade Age/Sex: 23/F Location: [facility] Status: Signed Intake Vital Signs 11/18/23 12:43 12/23/23 15:51 12/23/23 15:53 Height 5 ft 5 in 5 ft 5 in 5 ft 5 in Weight: 148 lb BMI 24.6 BP 124/77 H Intake Visit Reasons: 20 WK OB Metal Fabricating Supervisor Required: No Is patient in pain?: No Feel stressed/tense/nervou s/anxious/difficulty sleeping: not at all Allergies No Known Allergies Allergy (Verified 12/23/23 15:51) Medications ???Medication ???Instructions ???Recorded ???Confirmed ???Type multivit-min no.71-iron fum 28 cap PO 10/19/23 12/23/23 History mg-folate no.1 1 mg-dha 300 mg capsule (PNV-[facility]) fosfomycin tromethamine 3 gram 3 g PO ONCE #1 ea 11/18/23 12/23/23 Rx oral packet Last Menstrual Period: 08/05/23 Zika: Zika virus screening: Negative : No Have you fallen in the past year?: No PFSH [facility] Surgical History History of tonsillectomy and adenoidectomy Family History Grandmother Cancer Maternal- Gma's Twin Sister Brain Cancer Normal stillborn 30wks gestation Social History adopted: No household members: spouse current occupational status: employed 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 [employer] current occupational exposures/hazards: No pets and animals: Yes (Avoid litter box) pets and animals: cat(s) and dog(s) history of recent travel: Yes ( and -August) out of state: Yes out of country: Yes sexually active: Yes Smoking Status: Former smoker quit date: 04/07/21 Electronic Cigarette Use: with nicotine alcohol intake: current alcohol intake frequency: holidays/special occasions only details: Not while substance use type: does not use well-balanced diet: daily or most days caffeine: No eating out: 1-3 times/week during the past year weight has: remained stable what type of physical activity do you participate in: none delphine/anabaptism: Mu-Ism seatbelt use: sometimes do you feel safe at home: Yes additional social history: [employer] History 1 Elective abortions Hx Para 0 Spontaneous abortions Hx # Term Pregnancies Ectopic pregnancies Hx # Pregnancies Multiple births # of living children HPI 20 WK OB Details: EFRAIN VARGAS is a 23 year old who presents for routine OB visit. OB Visit ESTELA Calculator Estimated Delivery Date Method Current WG Current Estimate 05/09/24 Ultrasound #1 20w 2d Other Estimates 05/11/24 LMP (Certain) 20w 0d Expected Delivery Route/Plan Labor Preferences- CB/BF classes: [] labor support person: [] labor intervention preferences: [] pain management options preferred: [] cut cord/dad catch: [] : [] PP control planned: [] discussed possible routes of delivery and associated risks: [] special requests: [] Specific Issue/Plans Covid status: [] Flu vaccine: given Tdap vaccine: [] Rhogam: [] LARC form signed: [] Problem list reviewed and updated with the most current plan of care details and appropriate orders placed. Relevant counseling for the gestational age provided. Continue routine care and follow up unless otherwise noted in visit notes/problem list details Initial Weight: 141 lb Date -???-???-???-???-???- ???-???-???-???-???-? ??-???- EGA Weight BP Urine Prot -???-???-???-???-???- ???-???-???-???-???-? ??-???- Glucose FHR FuHt Pres Dilation -???-???-???-???-???- ???-???-???-???-???-? ??-???- Effaced St Visit Note 10/21/23 -???-???-???-???-???- ???-???-???-???-???-? ??-???- 11w 2d 141 lb (+0 oz) 128/75 -???-???-???-???-???- ???-???-???-???-???-? ??-???- 168 -???-???-???-???-???- ???-???-???-???-???-? ??-???- KW- CRL cons with dates. Accepts NIPT and carrier. 11/18/23 -???-???-???-???-???- ???-???-???-???-???-? ??-???- 15w 2d 143 lb (+2 lb) 109/72 Negative -???-???-???-???-???- ???-???-???-???-???-? ??-???- Negative 150 -???-???-???-???-???- ???-???-???-???-???-? ??-???- SM- co dysur ia, culture sent 12/23/23 -???-???-???-???-???- ???-???-???-???-???-? ??-???- 20w 2d 148 lb (+7 lb) 124/77 Negative -???-???-???-???-???- ???-???-???-???-???-? ??-???- Negative 156 -???-???-???-???-???- ???-???-???-???-???-? ??-???- LC- no vb/cr amping. normal anatomy scan. sciatic discomfort- stretches recommended. ACOG First Trimester First Trimester: Desire for , Alcohol, Tobacco Cessation, Illicit/Recre (more content not included)... Normal [facility] Ambulance Paramedic Office Visit Reporton 11-18-2023 Ambulance Paramedic Office Visit Report [facility] [place] [address], [address] [place] [address] OFFICE VISIT Date of Service: 11/18/23 MR#: [id number] Acct: [id number] Name: EFRAIN VARGAS Rep #: [id number] : 2000 Provider: Dr. Lyla shaw MD Age/Sex: 23/F Location: [facility] [place] Status: Signed with Addenda ADDENDUM by Noa Jacobson on 11/18/23 at 1334 Office Procedure Documentation entered by Noa Jacobson 11/18/23 13:34: Immunizations Flucelvax Triv 7946-3980 (PF) 45 mcg (15 mcg x 3)/0.5 mL IM syringe Performing Provider: Lyla Taylor MD Performing Location: [facility] Administered by: Noa Jacobson on 11/18/23 13:30 Dose Route Admin Location Dispensed Lot Number Expiration Date NDC Man ufacturer 0.5 mL IM Left Deltoid 0.5 mL [id number] 07/04/24 15485-927-21 [employer], [employer]. VIS Given Date VIS Provided VIS Publication Date 11/18/23 Single Vaccine 20 Eligibility Eligibility Date Funding Source Not Applicable Date cc: * Signed Intake Vital Signs 11/25/22 15:15 10/21/23 13:15 11/18/23 12:40 11/18/23 12:43 Height 5 ft 5 in 5 ft 5 in 5 ft 5 in 5 ft 5 in Weight: 143 lb BMI 23.8 BP 109/72 Intake Visit Reasons: 15wk OB Metal Fabricating Supervisor Required: No Is patient in pain?: No Allergies No Known Allergies Allergy (Verified 11/18/23 12:41) Medications ???Medication ???Instructions ???Recorded ???Confirmed ???Type multivit-min no.71-iron fum 28 cap PO 10/19/23 11/18/23 History mg-folate no.1 1 mg-dha 300 mg capsule (PNV[facility]) fosfomycin tromethamine 3 gram 3 g PO ONCE #1 ea 11/18/23 11/18/23 Rx oral packet Last Menstrual Period: 08/05/23 Zika: Zika virus screening: Negative : No Have you fallen in the past year?: No PFSH PFSH Surgical History History of tonsillectomy and adenoidectomy Family History Grandmother Cancer Maternal- Gma's Twin Sister Brain Cancer Normal stillborn 30wks gestation Social History adopted: No household members: spouse current occupational status: employed 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 [employer] current occupational exposures/hazards: No pets and animals: Yes (Avoid litter box) pets and animals: cat(s) and dog(s) history of recent travel: Yes ( and ) out of state: Yes out of country: Yes sexually active: Yes Smoking Status: Former smoker quit date: 04/07/21 Electronic Cigarette Use: with nicotine alcohol intake: current alcohol intake frequency: holidays/special occasions only details: Not while substance use type: does not use well-balanced diet: daily or most days caffeine: No eating out: 1-3 times/week during the past year weight has: remained stable what type of physical activity do you participate in: none delphine/anabaptism: Mu-Ism seatbelt use: sometimes do you feel safe at home: Yes additional social history: [employer] History 1 Elective abortions Hx Para 0 Spontaneous abortions Hx # Term Pregnancies Ectopic pregnancies Hx # Pregnancies Multiple births # of living children HPI 15wk OB Details: EFRAIN VARGAS is a 23 year old who presents for routine OB visit. OB Visit ESTELA Calculator Estimated Delivery Date Method Current WG Current Estimate 05/09/24 Ultrasound #1 15w 2d Other Estimates 05/11/24 LMP (Certain) 15w 0d Expected Delivery Route/Plan Labor Preferences- CB/BF classes: [] labor support person: [] labor intervention preferences: [] pain management options preferred: [] cut cord/dad catch: [] : [] PP control planned: [] discussed possible routes of delivery and associated risks: [] special requests: [] Specific Issue/Plans Covid status: [] Flu vaccine: given Tdap vaccine: [] Rhogam: [] LARC form signed: [] Problem list reviewed and updated with the most current plan of care details and appropriate orders placed. Relevant counseling for the gestational age provided. Continue routine care and follow up unless otherwise noted in visit notes/problem list details Initial Weight: 141 lb Date -???-???-???-???-???- ???-???-???-???-???-? ??-???- EGA Weight BP Urine Prot -???-???-???-???-???- ???-???-???-???-???-? ??-???- Glucose FHR FuHt Pres Dilation -???-???-???-???-???- ???-???-???-???-???-? ??-???- Effaced St Visit Note 10/21/23 -???-???-???-???-???- ???-???-???-???-???-? ??-???- 11w 2d 141 lb (+0 oz) 128/75 -???-???-???-???-???- ???-???-???-???-???-? ??-???- 168 -???-???-???-???-???- ???-???-???-???-? (more content not included)... Normal [facility] PAP I-G w/rfx hrHPV-Aptimaon 10-27-2023 ADEQ Comment Normal . [facility] Comment on above: Order Comment: Speci men Comment: [id number] Comment: No. of containers..01 ThinPrep Vial Result Comment: Sati sfactory for evaluation. No endocervical component is identified. Performed By: #### M 100.2200 #### [facility] [address] [place], [address] COMM . Normal . [facility] Comment on above: Order Comment: Speci men Comment: [id number] Comment: No. of containers..01 ThinPrep Vial Performed By: #### M 100.2200 #### [facility] [address] [place], [address] COMMENT Comment Normal . [facility] Comment on above: Order Comment: Speci men Comment: [id number] Comment: No. of containers..01 ThinPrep Vial Result Comment: This liquid based ThinPrep(R) pap test was screened with the use of an image guided system. Performed By: #### M 100.2200 #### [facility] [address] [place], [address] DIAG Comment Normal . [facility] Comment on above: Order Comment: Speci men Comment: [id number] Comment: No. of containers..01 ThinPrep Vial Result Comment: NEGA TIVE FOR INTRAEPITHELIAL LESION OR MALIGNANCY. Performed By: #### M 100.2200 #### [facility] [address] [place], [address] HPV RFLX Comment Normal . [facility] Comment on above: Order Comment: Speci men Comment: [id number] Comment: No. of containers..01 ThinPrep Vial Result Comment: The HPV DNA reflex criteria were not met with this specimen result therefore, no HPV testing was performed. Performed at: [facility] [address] [place], [place] [id number] Automatic Engraver: Ilia Henson MD, Phone: [phone] Performed at: [facility] [id number] Automatic Engraver: Crystal Voss MD, Phone: [phone] Performed By: #### M 100.2200 #### [facility] [address] [place], [address] PAPSMR Comment Normal . [facility] Comment on above: Order Comment: Speci men Comment: [id number] Comment: No. of containers..01 ThinPrep Vial Result Comment: The Pap smear is a screening test designed to aid in the detection of premalignant and malignant conditions of the uterine cervix. It is not a diagnostic procedure and should not be used as the sole means of detecting cervical cancer. Both false-positive and false-negative reports do occur. Performed By: #### M 100.2200 #### [facility] [address] [place], [address] PERFORM Comment Normal . [facility] Comment on above: Order Comment: Speci men Comment: [id number] Comment: No. of containers..01 ThinPrep Vial Result Comment: Felecia Farmer, Shellfish Sorter (ASCP) Performed By: #### M 100.2200 #### [facility] [address] [place], [address] Chlamydia/GC SHARMILA aptimaon CHLAMY,NUC ACID Negative Normal Negative [facility] Comment on above: Performed By: #### M 100.2200 #### [facility] [address] [place], [address] GC BY NUC ACID Negative Normal Negative [facility] Comment on above: Result Comment: Perf ormed at: =[facility] - [facility] [address] [id number] Automatic Engraver: Crystal Voss MD, Phone: [phone] Performed By: #### M 100.2200 #### [facility] [address] [place], [address] Urine Cultureon 10-22-2023 URC Culture exhibits no growth. Normal [facility] Comment on above: Performed By: #### L 7000.1800, L7400.0353, M100.2200 ####[facility] [address] [place], [address] CBC W/Diff, Automatedon 10-08-2023 Absolute Lymph 1.11 X10 3/uL Normal 0.83-4.51 [facility] Comment on above: Performed By: #### L 509.4005, L3890.6300, L509.8000, L100.0100, L900.0098, L3890.6005, BTS, L3890.6100 #### [facility] [address] [place], [address] Absolute Neut 4.9 X10 3/uL Normal 2.0-7.7 [facility] Comment on above: Performed By: #### L 509.4005, L3890.6300, L509.8000, L100.0100, L900.0098, L3890.6005, BTS, L3890.6100 #### [facility] [address] [place], [address] Basophils/100 WBC (Bld) 0.3 % Normal 0-1 [facility] Comment on above: Performed By: #### L 509.4005, L3890.6300, L509.8000, L100.0100, L900.0098, L3890.6005, BTS, L3890.6100 #### [facility] [address] [place], [address] Eosinophils/100 WBC (Bld) 0.9 % Normal 0-5 [facility] Comment on above: Performed By: #### L 509.4005, L3890.6300, L509.8000, L100.0100, L900.0098, L3890.6005, BTS, L3890.6100 #### [facility] [address] [place], [address] Erythrocyte distribution width (RBC) [Ratio] 14.0 % Normal 11.6-14.6 [facility] Comment on above: Performed By: #### L 509.4005, L3890.6300, L509.8000, L100.0100, L900.0098, L3890.6005, BTS, L3890.6100 #### [facility] [address] [place], [address] Hematocrit (Bld) [Volume fraction] 29.7 % Low 37-47 [facility] Comment on above: Performed By: #### L 509.4005, L3890.6300, L509.8000, L100.0100, L900.0098, L3890.6005, BTS, L3890.6100 #### [facility] [address] [place], [address] Hemoglobin (Bld) [Mass/Vol] 10.2 g/dL Low 12.0-15.0 [facility] Comment on above: Performed By: #### L 509.4005, L3890.6300, L509.8000, L100.0100, L900.0098, L3890.6005, BTS, L3890.6100 #### [facility] [address] [place], [address] IG% 0.300 Normal 0.0-0.9 [facility] Comment on above: Result Comment: IG% - Immature Granulocytes (promyelocytes, myelocytes and metamyelocytes) > 1% indicates that a LEFT SHIFT is Present. Performed By: #### L 509.4005, L3890.6300, L509.8000, L100.0100, L900.0098, L3890.6005, BTS, L3890.6100 #### [facility] [address] [place], [address] Lymphocytes/100 WBC (Bld) 16.8 % Low 19-41 [facility] Comment on above: Performed By: #### L 509.4005, L3890.6300, L509.8000, L100.0100, L900.0098, L3890.6005, BTS, L3890.6100 #### [facility] [address] [place], [address] MCH (RBC) [Entitic mass] 29.7 pg Normal 27.0-32.0 [facility] Comment on above: Performed By: #### L 509.4005, L3890.6300, L509.8000, L100.0100, L900.0098, L3890.6005, BTS, L3890.6100 #### [facility] [address] [place], [address] MCHC (RBC) [Mass/Vol] 34.3 g/dL Normal 32-36 [facility] Comment on above: Performed By: #### L 509.4005, L3890.6300, L509.8000, L100.0100, L900.0098, L3890.6005, BTS, L3890.6100 #### [facility] [address] [place], [address] MCV (RBC) [Entitic vol] 86.6 fL Normal 81-99 [facility] Comment on above: Performed By: #### L 509.4005, L3890.6300, L509.8000, L100.0100, L900.0098, L3890.6005, BTS, L3890.6100 #### [facility] [address] [place], [address] Monocytes/100 WBC (Bld) 7.4 % Normal 0-10 [facility] Comment on above: Performed By: #### L 509.4005, L3890.6300, L509.8000, L100.0100, L900.0098, L3890.6005, BTS, L3890.6100 #### [facility] [address] [place], [address] Neutrophils/100 WBC (Bld) 74.3 % High 47-70 [facility] Comment on above: Performed By: #### L 509.4005, L3890.6300, L509.8000, L100.0100, L900.0098, L3890.6005, BTS, L3890.6100 #### [facility] [address] [place], [address] Nucleated RBC (Bld) [#/Vol] 0 10*3/uL Normal 0-5 [facility] Comment on above: Performed By: #### L 509.4005, L3890.6300, L509.8000, L100.0100, L900.0098, L3890.6005, BTS, L3890.6100 #### [facility] [address] [place], [address] Platelet mean volume (Bld) [Entitic vol] 9.8 fL Normal 6.2-12.0 [facility] Comment on above: Performed By: #### L 509.4005, L3890.6300, L509.8000, L100.0100, L900.0098, L3890.6005, BTS, L3890.6100 #### [facility] [address] [place], [address] Platelets (Bld) [#/Vol] 249 10*3/uL Normal 150-450 [facility] Comment on above: Performed By: #### L 509.4005, L3890.6300, L509.8000, L100.0100, L900.0098, L3890.6005, BTS, L3890.6100 #### [facility] [address] [place], [address] RBC (Bld) [#/Vol] 3.43 10*6/uL Low 4.2-5.4 [facility] Comment on above: Performed By: #### L 509.4005, L3890.6300, L509.8000, L100.0100, L900.0098, L3890.6005, BTS, L3890.6100 #### [facility] [address] [place], [place], [address] RDW SD 43.6 fl Normal 35.1-43.9 [facility] Comment on above: Performed By: #### L 509.4005, L3890.6300, L509.8000, L100.0100, L900.0098, L3890.6005, BTS, L3890.6100 #### [facility] [address] [facility] [place], [place], [address] WBC (Bld) [#/Vol] 6.6 10*3/uL Normal 4.4-11.0 [facility] Comment on above: Performed By: #### L 509.4005, L3890.6300, L509.8000, L100.0100, L900.0098, L3890.6005, BTS, L3890.6100 #### [facility] [address] [facility] [address] [place], [place], [address] HIV - WCHon 10-21-2023 HIV Non-Reactive Normal Nonreactive [facility] Comment on above: Order Comment: Reaso n for Exam: Performed By: #### L 509.4005, L3890.6300, L509.8000, L100.0100, L900.0098, L3890.6005, BTS, L3890.6100 ####[facility] [address] [place], [address] Hepatitis B Surface Antigeno n 10-21-2023 HEP B Surf Ag Non-Reactive Normal Nonreactive [facility] Comment on above: Order Comment: Reaso n for Exam: Performed By: #### L 509.4005, L3890.6300, L509.8000, L100.0100, L900.0098, L3890.6005, BTS, L3890.6100 ####[facility] [address] [place], [place], [address] Hepatitis C Antibodyon 10-20 Hepatitis C AB Non-Reactive Normal Nonreactive [facility] Comment on above: Order Comment: Reaso n for Exam: Result Comment: Non Reactive: < 0.8 Equivocal: >/= 0.8 to < 1.0 Reactive: >/= 1.0 The [facility] requires that a reactive/equivocal HCV antibody result be sent out for confirmation. HCV Quant by PCR testing. Performed By: #### L 509.4005, L3890.6300, L509.8000, L100.0100, L900.0098, L3890.6005, BTS, L3890.6100 ####[facility] [address] [place], [place], [address] L509.8000on 10-21-2023 Syphilis Abs Non-Reactive Normal [facility] Comment on above: Order Comment: Reaso n for Exam: Performed By: #### L 509.4005, L3890.6300, L509.8000, L100.0100, L900.0098, L3890.6005, BTS, L3890.6100 ####[facility] [address] [place], [place], [id number] NATERAon 10-21-2023 NATURA SEE SCANNED REPORT Normal [facility] Comment on above: Performed By: #### L 509.4005, L3890.6300, L509.8000, L100.0100, L900.0098, L3890.6005, BTS, L3890.6100 #### [facility] [address] [place], [place], [address] Ambulance Paramedic Office Visit Reporton 10-21-2023 Ambulance Paramedic Office Visit Report [facility] [address] [place] [id number] OFFICE VISIT Date of Service: 10/21/23 MR#: [id number] Acct: [id number] Name: EFRAIN VARGAS Rep #: [id number] : 2000 Provider: OZZIE Srivastava ams Age/Sex: 23/F Location: [facility] [place] Status: Signed Intake Vital Signs 11/25/22 15:15 10/21/23 13:13 10/21/23 13:15 Height 5 ft 5 in 5 ft 4 in 5 ft 5 in Weight: 141 lb BMI 24.2 BP 128/75 H Intake Visit Reasons: New OB, LMP 09/05/23, ESTELA 05/12/24 Metal Fabricating Supervisor Required: No Is patient in pain?: No Allergies No Known Allergies Allergy (Verified 10/21/23 13:12) Medications ???Medication ???Instructions ???Recorded ???Confirmed ???Type multivit-min no.71-iron fum 28 cap PO 10/19/23 10/19/23 History mg-folate no.1 1 mg-dha 300 mg capsule ([facility]) Last Menstrual Period: 08/05/23 Zika: Zika virus screening: Negative : No [facility] Surgical History History of tonsillectomy and adenoidectomy Family History Grandmother Cancer Maternal- Gma's Twin Sister Brain Cancer Normal stillborn 30wks gestation Social History adopted: No household members: spouse service: No current occupational status: employed 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 [employer] current occupational exposures/hazards: No pets and animals: Yes (Avoid litter box) pets and animals: cat(s) and dog(s) history of recent travel: Yes ( and -August) out of state: Yes out of country: Yes sexually active: Yes Smoking Status: Former smoker quit date: 04/07/21 Electronic Cigarette Use: with nicotine alcohol intake: current alcohol intake frequency: holidays/special occasions only details: Not while substance use type: does not use well-balanced diet: daily or most days caffeine: No eating out: 1-3 times/week during the past year weight has: remained stable what type of physical activity do you participate in: none delphine/anabaptism: Mu-Ism seatbelt use: sometimes do you feel safe at home: Yes additional social history: [employer] History 1 Elective abortions Hx Para 0 Spontaneous abortions Hx # Term Pregnancies Ectopic pregnancies Hx # Pregnancies Multiple births # of living children HPI New OB, LMP 09/05/23, ESTELA 05/12/24 Details: EFRAIN VARGAS is a 23 year old who presents for New OB visit. OB Visit ESTELA Calculator Estimated Delivery Date Method Current WG Current Estimate 05/09/24 Ultrasound #1 11w 2d Other Estimates 05/11/24 LMP (Certain) 11w 0d Comments: HIV: Urine Culture: Sequential Screen: NIPT Screen: Estimated Due Date: 05/11/24 Expected Delivery Route/Plan Labor Preferences- CB/BF classes: [] labor support person: [] labor intervention preferences: [] pain management options preferred: [] cut cord/dad catch: [] : [] PP control planned: [] discussed possible routes of delivery and associated risks: [] special requests: [] Specific Issue/Plans Covid status: [] Flu vaccine: [] Tdap vaccine: [] Rhogam: [] LARC form signed: [] Problem list reviewed and updated with the most current plan of care details and appropriate orders placed. Relevant counseling for the gestational age provided. Continue routine care and follow up unless otherwise noted in visit notes/problem list details Initial Weight: 141 lb Date -???-???-???-???-???- ???-???-???-???-???-? ??-???- EGA Weight BP Urine Prot -???-???-???-???-???- ???-???-???-???-???-? ??-???- Glucose FHR FuHt Pres Dilation -???-???-???-???-???- ???-???-???-???-???-? ??-???- Effaced St Visit Note 10/21/23 -???-???-???-???-???- ???-???-???-???-???-? ??-???- 11w 2d 141 lb (+0 oz) 128/75 -???-???-???-???-???- ???-???-???-???-???-? ??-???- 168 -???-???-???-???-???- ???-???-???-???-???-? ??-???- KW- CRL cons with dates. Accepts NIPT and carrier. Menstrual History Last Menstrual Period: 08/05/23 Reported LMP: definite Normal amount/duration: No (2 days late and had clots with her menses) Frequency in days: 28 On hormonal BC at conception: No hCG+: 08/30/23 Antepartum Record Genetic Screening: Congenital Heart Defect: Other, Neural Tube Defect: Other, Hemoglobinopathy Or Carrier: Other, Cystic Fibrosis: Other, Chromosome Abnormality: Other, Valentino-Sachs: Other, Hemophilia: Other, Intellectual Disability/Autism: Other, Recurrent Loss/Stillbirth: Patient (Maternal Gma stillborn @ 30 weeks), Other Structural Defect: Other, Other Genetic Disease: Other and Maternal Metabolic Disorder: Other Infection History (more content not included)... Normal [facility] Rubella IgGon 10-21-2023 Rubella IgG Equiv Normal Nonreactive [facility] Comment on above: Order Comment: Reaso n for Exam: Result Comment: Anti body Results Interpretation of Immune Status Non Reactive Presumed Non-Immune Equivocal Equivocal Reactive Presumed Immune Performed By: #### L 509.4005, L3890.6300, L509.8000, L100.0100, L900.0098, L3890.6005, BTS, L3890.6100 ####[facility] [id number] [place], [address] Type AND Screenon 10-21-2023 Ab SCREEN GEL Negative Normal [facility] Comment on above: Order Comment: PN Performed By: #### L 509.4005, L3890.6300, L509.8000, L100.0100, L900.0098, L3890.6005, BTS, L3890.6100 #### [facility] [address] [place], [address] Culture Urineon 09-16-2023 Culture Urine Bacteria Ur Cult: NEGATIVE FOR THE COMMON BACTERIAL UROPATHOGENS. Normal [facility] Comment on above: Order Comment: Blood glucose Nurse Monitor? N Diagnosis/Reason for Test: Encounter for supervision of other normal pregnanc Comments: 1 sample(s), Collect by: Lab. Comments: 1 sample(s), Collect by: Lab., When: Next available Beta-hcg, quantitative Performed By: #### B G, HCGQ #### [facility] [address] [place] [address] , Giovany James M.D. FCAP, FASCP Rubella Screenon 09-16-2023 Rubella Screen IMMUNE Normal IMMUNE [facility] Comment on above: Order Comment: Blood glucose Nurse Monitor? N Diagnosis/Reason for Test: Encounter for supervision of other normal pregnanc Comments: 1 sample(s), Collect by: Lab. Comments: 1 sample(s), Collect by: Lab., When: Next available Beta-hcg, quantitative Performed By: #### B G, HCGQ #### [facility] [address] [place] [address] , Giovany James M.D. FCAP, FASCP Treponema Pallidum IgGon Treponema Pallidum IgG Negative Normal NEGATIVE [facility] Comment on above: Order Comment: Nurse Monitor? N Diagnosis/Reason for Test: Encounter for supervision of other normal pregnanc Comments: 1 sample(s), Collect by: Lab. Syphilis T. Pallidum IgG Comments: 1 sample(s), Collect by: Lab., When: Next available Performed By: #### S YP #### [facility], CLIA# [id number] [address] [place], [place] [address] Giovany James M.D. Director Basophils Auto (Bld) [#/Vol] Ordered By: EMIGDIO BOJORQUEZ on 09-15-2023 Basophils (Bld) [#/Vol] 0.04 10*3/uL 0.0-0.2 [facility] Basophils/100 WBC Auto (Bld) Ordered By: EMIGDIO BOJORQUEZ on 09-15-2023 Basophils/100 WBC (Bld) 0.6 % 0-1.0 [facility] Benzodiazepines Screen Ql (U )Ordered By: EMIGDIO BOJORQUEZ on 09-15-2023 Benzodiazepines Ql (U) Negative NEG [facility] Beta HCG Quantitativeon Beta HCG Quantitative 6970.0 MIU/ML Normal [facility] Comment on above: Order Comment: Blood glucose Nurse Monitor? N Diagnosis/Reason for Test: Encounter for supervision of other normal pregnanc Comments: 1 sample(s), Collect by: Lab. Comments: 1 sample(s), Collect by: Lab., When: Next available Beta-hcg, quantitative Performed By: #### B G, HCGQ #### [facility] [address] [place] [address] , Giovany James M.D. FCAP, FASCP Blood differential cell coun t methodOrdered By: EMIGDIO BOJORQUEZ on 09-15-2023 Differential cell count method Nom (Bld) Auto differential [facility] Blood hemoglobin measurement (mass/volume)Ordered By: EMIGDIO BOJORQUEZ on 09-15-2023 Hemoglobin (Bld) [Mass/Vol] 11.7 g/dL 11.7-15.7 [facility] CBC With Differentialon Basophils Absolute Auto 0.04 10*3/uL Normal 0.0-0.2 [facility] Comment on above: Order Comment: Compl ete blood count w/ diff Nurse Monitor? N Diagnosis/Reason for Test: Encounter for supervision of other normal pregnanc Comments: 1 sample(s), Collect by: Lab. Comments: 1 sample(s), Collect by: Lab., When: Next available Performed By: #### C BCD #### [facility] [address], [place] [id number] , Giovany James M.D. FCAP, FASCP Basophils/100 WBC (Bld) 0.6 % Normal 0-1.0 M [facility] Comment on above: Order Comment: Compl ete blood count w/ diff Nurse Monitor? N Diagnosis/Reason for Test: Encounter for supervision of other normal pregnanc Comments: 1 sample(s), Collect by: Lab. Comments: 1 sample(s), Collect by: Lab., When: Next available Performed By: #### C BCD #### [facility] [address] [place] [id number] , Giovany James M.D. FCAP, FASCP Differential Type? Auto Differential Normal [facility] Comment on above: Order Comment: Compl ete blood count w/ diff Nurse Monitor? N Diagnosis/Reason for Test: Encounter for supervision of other normal pregnanc Comments: 1 sample(s), Collect by: Lab. Comments: 1 sample(s), Collect by: Lab., When: Next available Performed By: #### C BCD #### [facility] [address] [place] [address] , Giovany James M.D. FCAP, FASCP Eosinophils (Bld) [#/Vol] 0.10 10*3/uL Normal 0.0-0.5 [facility] Comment on above: Order Comment: Compl ete blood count w/ diff Nurse Monitor? N Diagnosis/Reason for Test: Encounter for supervision of other normal pregnanc Comments: 1 sample(s), Collect by: Lab. Comments: 1 sample(s), Collect by: Lab., When: Next available Performed By: #### C BCD #### [facility] [address] [place] [address] , Giovany James M.D. FCAP, FASCP Eosinophils/100 WBC (Bld) 1.5 % Normal 0.0-3.0 [facility] Comment on above: Order Comment: Compl ete blood count w/ diff Nurse Monitor? N Diagnosis/Reason for Test: Encounter for supervision of other normal pregnanc Comments: 1 sample(s), Collect by: Lab. Comments: 1 sample(s), Collect by: Lab., When: Next available Performed By: #### C BCD #### [facility] [address] [place] [address] , Giovany James M.D. FCAP, FASCP Hematocrit (Bld) [Volume fraction] 34.2 % Low 35.0-47.0 [facility] Comment on above: Order Comment: Compl ete blood count w/ diff Nurse Monitor? N Diagnosis/Reason for Test: Encounter for supervision of other normal pregnanc Comments: 1 sample(s), Collect by: Lab. Comments: 1 sample(s), Collect by: Lab., When: Next available Performed By: #### C BCD #### [facility] [address] [place] [address] , Giovany James M.D. FCAP, FASCP Hemoglobin (Bld) [Mass/Vol] 11.7 g/dL Normal 11.7-15.7 [facility] Comment on above: Order Comment: Compl ete blood count w/ diff Nurse Monitor? N Diagnosis/Reason for Test: Encounter for supervision of other normal pregnanc Comments: 1 sample(s), Collect by: Lab. Comments: 1 sample(s), Collect by: Lab., When: Next available Performed By: #### C BCD #### [facility] [address] [place] [address] , Giovany James M.D. FCAP, FASCP Immature Gran Absolute Auto 0.02 10*3/uL Normal 0.01-0.2 [facility] Comment on above: Order Comment: Compl ete blood count w/ diff Nurse Monitor? N Diagnosis/Reason for Test: Encounter for supervision of other normal pregnanc Comments: 1 sample(s), Collect by: Lab. Comments: 1 sample(s), Collect by: Lab., When: Next available Performed By: #### C BCD #### [facility] [address] [place] [address] , Giovany James M.D. FCAP, FASCP Immature granulocytes/100 WBC (Bld) 0.3 % Normal 0-0.9 [facility] Comment on above: Order Comment: Compl ete blood count w/ diff Nurse Monitor? N Diagnosis/Reason for Test: Encounter for supervision of other normal pregnanc Comments: 1 sample(s), Collect by: Lab. Comments: 1 sample(s), Collect by: Lab., When: Next available Performed By: #### C BCD #### [facility] [address] [place] [address] , Giovany James M.D. FCAP, FASCP Lymphocytes (Bld) [#/Vol] 1.45 10*3/uL Low 1.5-4.0 [facility] Comment on above: Order Comment: Compl ete blood count w/ diff Nurse Monitor? N Diagnosis/Reason for Test: Encounter for supervision of other normal pregnanc Comments: 1 sample(s), Collect by: Lab. Comments: 1 sample(s), Collect by: Lab., When: Next available Performed By: #### C BCD #### [facility] [address] [place] [address] , Giovany James M.D. FCAP, FASCP Lymphocytes/100 WBC (Bld) 21.4 % Normal 20.0-40.0 [facility] Comment on above: Order Comment: Compl ete blood count w/ diff Nurse Monitor? N Diagnosis/Reason for Test: Encounter for supervision of other normal pregnanc Comments: 1 sample(s), Collect by: Lab. Comments: 1 sample(s), Collect by: Lab., When: Next available Performed By: #### C BCD #### [facility] [address] [place] [id number] , Giovany James M.D. FCAP, FASCP MCH (RBC) [Entitic mass] 29.4 pg Normal 27.0-40.0 [facility] Comment on above: Order Comment: Compl ete blood count w/ diff Nurse Monitor? N Diagnosis/Reason for Test: Encounter for supervision of other normal pregnanc Comments: 1 sample(s), Collect by: Lab. Comments: 1 sample(s), Collect by: Lab., When: Next available Performed By: #### C BCD #### [facility] [address] [place] [address] , Giovany James M.D. FCAP, FASCP Mean Corpusc Hgb Concentration 34.2 g/dL Normal 31.0-36.0 [facility] Comment on above: Order Comment: Compl ete blood count w/ diff Nurse Monitor? N Diagnosis/Reason for Test: Encounter for supervision of other normal pregnanc Comments: 1 sample(s), Collect by: Lab. Comments: 1 sample(s), Collect by: Lab., When: Next available Performed By: #### C BCD #### [facility] [address] [place] [address] , Giovany James M.D. FCAP, FASCP Mean Corpuscular Volume 85.9 CU uM Normal 80.0-100.0 [facility] Comment on above: Order Comment: Compl ete blood count w/ diff Nurse Monitor? N Diagnosis/Reason for Test: Encounter for supervision of other normal pregnanc Comments: 1 sample(s), Collect by: Lab. Comments: 1 sample(s), Collect by: Lab., When: Next available Performed By: #### C BCD #### [facility] [address] [place] [address] , Giovany James M.D. FCAP, FASCP Monocytes (Bld) [#/Vol] 0.50 10*3/uL Normal 0.2-0.8 [facility] Comment on above: Order Comment: Compl ete blood count w/ diff Nurse Monitor? N Diagnosis/Reason for Test: Encounter for supervision of other normal pregnanc Comments: 1 sample(s), Collect by: Lab. Comments: 1 sample(s), Collect by: Lab., When: Next available Performed By: #### C BCD #### [facility] [address], [place] [id number] , Giovany James M.D. FCAP, FASCP Monocytes/100 WBC (Bld) 7.4 % Normal 4.0-10.0 [facility] Comment on above: Order Comment: Compl ete blood count w/ diff Nurse Monitor? N Diagnosis/Reason for Test: Encounter for supervision of other normal pregnanc Comments: 1 sample(s), Collect by: Lab. Comments: 1 sample(s), Collect by: Lab., When: Next available Performed By: #### C BCD #### [facility] [address] [place] [id number] , Giovany James M.D. FCAP, FASCP Neutrophils Absolute Auto 4.68 10*3/uL Normal 2.0-7.0 [facility] Comment on above: Order Comment: Compl ete blood count w/ diff Nurse Monitor? N Diagnosis/Reason for Test: Encounter for supervision of other normal pregnanc Comments: 1 sample(s), Collect by: Lab. Comments: 1 sample(s), Collect by: Lab., When: Next available Performed By: #### C BCD #### [facility] [address], [place] [id number] , Giovany James M.D. FCAP, FASCP Neutrophils/100 WBC (Bld) 68.8 % High 54.0-62.0 [facility] Comment on above: Order Comment: Compl ete blood count w/ diff Nurse Monitor? N Diagnosis/Reason for Test: Encounter for supervision of other normal pregnanc Comments: 1 sample(s), Collect by: Lab. Comments: 1 sample(s), Collect by: Lab., When: Next available Performed By: #### C BCD #### [facility] [address] [place] [address] , Giovany James M.D. FCAP, FASCP Nucleated RBC (Bld) [#/Vol] 0.00 10*3/uL Normal -0 [facility] Comment on above: Order Comment: Compl ete blood count w/ diff Nurse Monitor? N Diagnosis/Reason for Test: Encounter for supervision of other normal pregnanc Comments: 1 sample(s), Collect by: Lab. Comments: 1 sample(s), Collect by: Lab., When: Next available Performed By: #### C BCD #### [facility] [address], [place] [id number] , Giovany James M.D. FCAP, FASCP Nucleated RBC's % 0.0 /100WBC Normal -0 [facility] Comment on above: Order Comment: Compl ete blood count w/ diff Nurse Monitor? N Diagnosis/Reason for Test: Encounter for supervision of other normal pregnanc Comments: 1 sample(s), Collect by: Lab. Comments: 1 sample(s), Collect by: Lab., When: Next available Performed By: #### C BCD #### [facility] [address] [place] [address] , Giovany James M.D. FCAP, FASCP Platelets (Bld) [#/Vol] 280 10*3/uL Normal 130-440 [facility] Comment on above: Order Comment: Compl ete blood count w/ diff Nurse Monitor? N Diagnosis/Reason for Test: Encounter for supervision of other normal pregnanc Comments: 1 sample(s), Collect by: Lab. Comments: 1 sample(s), Collect by: Lab., When: Next available Performed By: #### C BCD #### [facility] [address] [place] [address] , Giovany James M.D. FCAP, FASCP RBC (Bld) [#/Vol] 3.98 10*6/uL Normal 3.80-5.20 [facility] Comment on above: Order Comment: Compl ete blood count w/ diff Nurse Monitor? N Diagnosis/Reason for Test: Encounter for supervision of other normal pregnanc Comments: 1 sample(s), Collect by: Lab. Comments: 1 sample(s), Collect by: Lab., When: Next available Performed By: #### C BCD #### [facility] [address] [place] [address] , Giovany James M.D. FCAP, FASCP Red Cell Distribution 13.9 Normal 11.5-14.5 [facility] Comment on above: Order Comment: Compl ete blood count w/ diff Nurse Monitor? N Diagnosis/Reason for Test: Encounter for supervision of other normal pregnanc Comments: 1 sample(s), Collect by: Lab. Comments: 1 sample(s), Collect by: Lab., When: Next available Performed By: #### C BCD #### [facility] [address] [place] [address] , Giovany James M.D. FCAP, FASCP WBC (Bld) [#/Vol] 6.8 10*3/uL Normal 3.5-11.0 [facility] Comment on above: Order Comment: Compl ete blood count w/ diff Nurse Monitor? N Diagnosis/Reason for Test: Encounter for supervision of other normal pregnanc Comments: 1 sample(s), Collect by: Lab. Comments: 1 sample(s), Collect by: Lab., When: Next available Performed By: #### C BCD #### [facility] [address] [place] [address] , Giovany James M.D. FCAP, FASCP Cocaine Screen Ql (U)Ordered By: EMIGDIO BOJORQUEZ on 09-15-2023 Cocaine Ql (U) Negative NEG [facility] Drug Screen Urine 11 panelon 09-15-2023 Alcohol Screen Urine Negative Normal NEG [facility] Comment on above: Order Comment: Drug screen alcohol urine, 11 panel Nurse Monitor? N Diagnosis/Reason for Test: Encounter for supervision of other normal pregnanc Comments: 1 sample(s), Collect by: Lab. Comments: 1 sample(s), Collect by: Lab., When: Next available Performed By: #### D HOLDEN #### [facility] [address], [place] [id number] , Giovany James M.D. FCAP, FASCP Amphetamine Screen Urine Negative Normal [facility] Comment on above: Order Comment: Drug screen alcohol urine, 11 panel Nurse Monitor? N Diagnosis/Reason for Test: Encounter for supervision of other normal pregnanc Comments: 1 sample(s), Collect by: Lab. Comments: 1 sample(s), Collect by: Lab., When: Next available Performed By: #### D HOLDEN #### [facility] [address] [place] [address] , Aayush MaryAP, FASCP Barbiturate Screen Urine Negative Normal [facility] Comment on above: Order Comment: Drug screen alcohol urine, 11 panel Nurse Monitor? N Diagnosis/Reason for Test: Encounter for supervision of other normal pregnanc Comments: 1 sample(s), Collect by: Lab. Comments: 1 sample(s), Collect by: Lab., When: Next available Performed By: #### D HOLDEN #### [facility] [address] [place] [id number] , Giovany James M.D. FCAP, FASCP Benzodiazapine Screen Urine Negative Normal [facility] Comment on above: Order Comment: Drug screen alcohol urine, 11 panel Nurse Monitor? N Diagnosis/Reason for Test: Encounter for supervision of other normal pregnanc Comments: 1 sample(s), Collect by: Lab. Comments: 1 sample(s), Collect by: Lab., When: Next available Performed By: #### D HOLDEN #### [facility] [address] [place] [id number] , Giovany James M.D. FCAP, FASCP Cocaine Screen Urine Negative Normal [facility] Comment on above: Order Comment: Drug screen alcohol urine, 11 panel Nurse Monitor? N Diagnosis/Reason for Test: Encounter for supervision of other normal pregnanc Comments: 1 sample(s), Collect by: Lab. Comments: 1 sample(s), Collect by: Lab., When: Next available Performed By: #### D HOLDEN #### [facility] [address] [place] [address] , Giovany James M.D. FCAP, FASCP Fentanyl Screen Urine Negative Normal Negative [facility] Comment on above: Order Comment: Drug screen alcohol urine, 11 panel Nurse Monitor? N Diagnosis/Reason for Test: Encounter for supervision of other normal pregnanc Comments: 1 sample(s), Collect by: Lab. Comments: 1 sample(s), Collect by: Lab., When: Next available Performed By: #### D HOLDEN #### [facility] [address] [place] [address] , Aayush MaryAP, FASCP Marijuana Screen Urine Negative Normal NEG [facility] Comment on above: Order Comment: Drug screen alcohol urine, 11 panel Nurse Monitor? N Diagnosis/Reason for Test: Encounter for supervision of other normal pregnanc Comments: 1 sample(s), Collect by: Lab. Comments: 1 sample(s), Collect by: Lab., When: Next available Performed By: #### D HOLDEN #### [facility] [address] [place] [id number] , Giovany James M.D. FCAP, FASCP Methadone Screen Urine Negative Normal NEG [facility] Comment on above: Order Comment: Drug screen alcohol urine, 11 panel Nurse Monitor? N Diagnosis/Reason for Test: Encounter for supervision of other normal pregnanc Comments: 1 sample(s), Collect by: Lab. Comments: 1 sample(s), Collect by: Lab., When: Next available Performed By: #### D HOLDEN #### [facility] [address] [place] [address] , Giovany James M.D. FCAP, FASCP Opiate Screen Urine Negative Normal NEG [facility] Comment on above: Order Comment: Drug screen alcohol urine, 11 panel Nurse Monitor? N Diagnosis/Reason for Test: Encounter for supervision of other normal pregnanc Comments: 1 sample(s), Collect by: Lab. Comments: 1 sample(s), Collect by: Lab., When: Next available Performed By: #### D HOLDEN #### [facility] [address] [place], [place] [id number] , Giovany James M.D. FCAP, FASCP Oxycodone Urine Negative Normal NEG [facility] Comment on above: Order Comment: Drug screen alcohol urine, 11 panel Nurse Monitor? N Diagnosis/Reason for Test: Encounter for supervision of other normal pregnanc Comments: 1 sample(s), Collect by: Lab. Comments: 1 sample(s), Collect by: Lab., When: Next available Performed By: #### D HOLDEN #### [facility] [address], [place] [id number] , Giovany James M.D. FCAP, FASCP Eosinophils Auto (Bld) [#/Vo l]Ordered By: EMIGDIO BOJORQUEZ on 09-15-2023 Eosinophils (Bld) [#/Vol] 0.10 10*3/uL 0.0-0.5 [facility] Eosinophils/100 WBC Auto (Bl d)Ordered By: EMIGDIO BOJORQUEZ on 09-15-2023 Eosinophils/100 WBC (Bld) 1.5 % 0.0-3.0 [facility] Erythrocyte distribution wid th Auto (RBC) [Ratio]Ordered By: EMIGDIO BOJORQUEZ on 09-15-2023 Erythrocyte distribution width (RBC) [Ratio] 13.9 % 11.5-14.5 [facility] Glucose, Bloodon 09-15-2023 Glucose [Mass/Vol] 102 mg/dL High 70-100 [facility] Comment on above: Order Comment: Blood glucose Nurse Monitor? N Diagnosis/Reason for Test: Encounter for supervision of other normal pregnanc Comments: 1 sample(s), Collect by: Lab. Comments: 1 sample(s), Collect by: Lab., When: Next available Beta-hcg, quantitative Result Comment: INTR EPRETATION FOR FASTING BLOOD GLUCOSE: 70-100 mg/dl NORMAL GLUCOSE TOLERANCE 100-125 mg/dl IMPAIRED FASTING GLUCOSE (PRE-DIABETES) >125 mg/dl DIABETES - ON MORE THAN ONE TESTING Performed By: #### B G, HCGQ #### [facility] [address] [place] [address] , Giovany James M.D. FCSERA, FASCP HIV1 2 Ag Ab with Ref confir tue09-15-2023 HIV1 2 Ag Ab with Ref confirm Non-Reactive Normal Nonreactive [facility] Comment on above: Order Comment: HIV 1 -2 Ag/Ab combo w rflx WB Nurse Monitor? N Diagnosis/Reason for Test: Encounter for supervision of other normal pregnanc Comments: 1 sample(s), Collect by: Lab. Comments: 1 sample(s), Collect by: Lab., When: Next available Hepatitis C Antibody Hepatitis B Surface Ag w Confirmation Performed By: #### H EP C AB, HBSAG, HIV #### [facility] [address] [place] [address] , Aayush Mary, FASCOmar Hematocrit Auto (Bld) [Volum e fraction]Ordered By: EMIGDIO BOJORQUEZ on 09-15-2023 Hematocrit (Bld) [Volume fraction] 34.2 % Low 35.0-47.0 [facility] Hepatitis B Surf Ag w Confir tue09-15-2023 Hepatitis B Surface Antigen Non-Reactive Normal Nonreactive [facility] Comment on above: Order Comment: HIV 1 -2 Ag/Ab combo w rflx WB Nurse Monitor? N Diagnosis/Reason for Test: Encounter for supervision of other normal pregnanc Comments: 1 sample(s), Collect by: Lab. Comments: 1 sample(s), Collect by: Lab., When: Next available Hepatitis C Antibody Hepatitis B Surface Ag w Confirmation Performed By: #### H EP C AB, HBSAG, HIV #### [facility] [address] [place] [address] , Giovany J. Macatol, M.D. FCAP, FASCP Hepatitis C Antibodyon 09-14 Hepatitis C Antibody Non-Reactive Normal Nonreactive [facility] Comment on above: Order Comment: HIV 1 -2 Ag/Ab combo w rflx WB Nurse Monitor? N Diagnosis/Reason for Test: Encounter for supervision of other normal pregnanc Comments: 1 sample(s), Collect by: Lab. Comments: 1 sample(s), Collect by: Lab., When: Next available Hepatitis C Antibody Hepatitis B Surface Ag w Confirmation Performed By: #### H EP C AB, HBSAG, HIV #### [facility] [address] [place] [address] , Giovany James M.D. FCAP, FASCP Immature granulocytes Auto ( Bld) [#/Vol]Ordered By: EMIGDIO BOJORQUEZ on 09-15-2023 Immature granulocytes (Bld) [#/Vol] 0.02 10*3/uL 0.01-0.2 [facility] Immature granulocytes/100 WB C Auto (Bld)Ordered By: EMIGDIO BOJORQUEZ on 09-15-2023 Immature granulocytes/100 WBC (Bld) 0.3 % 0-0.9 [facility] Lymphocytes Auto (Bld) [#/Vo l]Ordered By: EMIGDIO BOJORQUEZ on 09-15-2023 Lymphocytes (Bld) [#/Vol] 1.45 10*3/uL Low 1.5-4.0 [facility] Lymphocytes/100 WBC Auto (Bl d)Ordered By: EMIGDIO BOJORQUEZ on 09-15-2023 Lymphocytes/100 WBC (Bld) 21.4 % 20.0-40.0 [facility] MCH Auto (RBC) [Entitic mass ]Ordered By: EMIGDIO BOJORQUEZ on 09-15-2023 MCH (RBC) [Entitic mass] 29.4 pg 27-40 [facility] MCHC Auto (RBC) [Mass/Vol]Or dered By: EMIGDIO BOJORQUEZ on 09-15-2023 MCHC (RBC) [Mass/Vol] 34.2 g/dL 31-36 [facility] MCV Auto (RBC) [Entitic vol] Ordered By: EMIGDIO BOJORQUEZ on 09-15-2023 MCV (RBC) [Entitic vol] 85.9 CU uM 80.0-100.0 M [facility] Monocytes Auto (Bld) [#/Vol] Ordered By: EMIGDIO MARYELLEN on 09-15-2023 Monocytes (Bld) [#/Vol] 0.50 10*3/uL 0.2-0.8 [facility] Monocytes/100 WBC Auto (Bld) Ordered By: EMIGDIO BOJORQUEZ on 09-15-2023 Monocytes/100 WBC (Bld) 7.4 % 4.0-10.0 M [facility] Neutrophils Auto (Bld) [#/Vo l]Ordered By: EMIGDIO MARYELLEN on 09-15-2023 Neutrophils (Bld) [#/Vol] 4.68 10*3/uL 2.0-7.0 [facility] Neutrophils/100 WBC Auto (Bl d)Ordered By: EMIGDIO BOJORQUEZ on 09-15-2023 Neutrophils/100 WBC (Bld) 68.8 % High 54.0-62.0 [facility] Nucleated RBC Auto (Bld) [#/ Vol]Ordered By: EMIGDIO BOJORQUEZ on 09-15-2023 Nucleated RBC (Bld) [#/Vol] 0.00 10*3/uL <0 [facility] Nucleated RBC/100 WBC Auto ( Bld) [Ratio]Ordered By: EMIGDIO BOJORQUEZ on 09-15-2023 Nucleated RBC/100 WBC (Bld) [Ratio] 0.0 /100WBC <0 [facility] Platelets Auto (Bld) [#/Vol] Ordered By: EMIGDIO BOJORQUEZ on 09-15-2023 Platelets (Bld) [#/Vol] 280 10*3/uL 130-440 [facility] RBC Auto (Bld) [#/Vol]Ordere d By: EMIGDIO BOJORQUEZ on 09-15-2023 RBC (Bld) [#/Vol] 3.98 10*6/uL 3.80-5.20 [facility] Retype for Blood Bankon ABO and Rh group Nom (Bld) Test Not Performed Normal [facility] Comment on above: Result Comment: NOT NEEDED Performed By: #### T RH3 #### [facility] [address] [place] [address] , Giovany James M.D. FCAP, FASCP Screening urine opiates dete ctionOrdered By: EMIGDIO BOJORQUEZ on 09-15-2023 Opiates Screen Ql (U) Negative NEG [facility] Serum HIV 1 and HIV-2 antibo dy assay with HIV-1 p24 antigen detection by immunoassayOrdered By: EMIGDIO BOJORQUEZ on 09-15-2023 HIV 1+2 Ab+HIV1 p24 Ag IA Ql Non-Reactive Nonreactive [facility] Serum Treponema pallidum IgG antibody detection by immunoassayOrdered By: EMIGDIO BOJORQUEZ on 09-15-2023 T. pallidum IgG IA Ql (S) Negative NEGATIVE [facility] Serum hepatitis B virus surf ashley antigen detectionOrdered By: EMIGDIO BOJORQUEZ on 09-15-2023 HBV surface Ag Ql (S) Non-Reactive Nonreactive [facility] Serum hepatitis C virus anti body detectionOrdered By: EMIGDIO BOJORQUEZ on 09-15-2023 HCV Ab Ql (S) Non-Reactive Nonreactive [facility] Serum or plasma beta choriog onadotropin measurement (units/volume)Ordered By: EMIGDIO BOJORQUEZ on 09-15-2023 HCG.beta subunit Qn 6970.0 MIU/ML [facility] Serum or plasma glucose ann urement (mass/volume)Ordered By: EMIGDIO BOJORQUEZ on 09-15-2023 Glucose [Mass/Vol] 102 mg/dL High 70-100 [facility] Comment on above: INTREPRETATION FOR F ASTING BLOOD GLUCOSE: 70-100 mg/dl NORMAL GLUCOSE [id number] mg/dl IMPAIRED FASTING GLUCOSE (PRE-DIABETES)>125 mg/dl DIABETES - ON MORE THAN ONE TESTING Serum or plasma rubella viru s IgG antibody detection by immunoassayOrdered By: EMIGDIO BOJORQUEZ on 09-15-2023 Rubella virus IgG IA Ql Immune IMMUNE M [facility] Type and Screenon 09-15-2023 ABO and Rh group Nom (Bld) Blood group O Rh(D) positive Normal [facility] Comment on above: Order Comment: Nurse Monitor? N Diagnosis/Reason for Test: Encounter for supervision of other normal pregnanc Comments: 1 sample(s), Collect by: Lab. Type and screen Comments: 1 sample(s), Collect by: Lab., When: Next available Performed By: #### T S #### [facility] [address] [place] [address] , Giovany James M.D. FCAP, FASCP Urine amphetamines detection by screening methodOrdered By: EMIGDIO BOJORQUEZ on 09-15-2023 Amphetamines Screen Ql (U) Negative NEG [facility] Urine barbiturates detection by screening methodOrdered By: EMIGDIO BOJORQUEZ on 09-15-2023 Barbiturates Screen Ql (U) Negative NEG [facility] Urine cannabinoids detection by screening methodOrdered By: EMIGDIO BOJORQUEZ on 09-15-2023 Cannabinoids Screen Ql (U) Negative NEG [facility] Urine cultureOrdered By: JUNAID BOJORQUEZ on 09-15-2023 Bacteria identified Cx Nom (U) Negative [facility] Urine drug screen comment in terpretationOrdered By: EMIGDIO BOJORQUEZ on 09-15-2023 Drug screen comment (U) [Interp] : [facility] Comment on above: FOR SCREENING PURPOS ES ONLY! Urine ethanol detection by s creening methodOrdered By: EMIGDIO BOJORQUEZ on 09-15-2023 Ethanol Screen Ql (U) Negative NEG [facility] Urine methadone detection by screening methodOrdered By: EMIGDIO BOJORQUEZ on 09-15-2023 Methadone Screen Ql (U) Negative NEG [facility] Urine oxycodone detectionOrd ered By: EMIGDIO BOJORQUEZ on 09-15-2023 oxyCODONE Ql (U) Negative NEG [facility] WBC Auto (Bld) [#/Vol]Ordere d By: EMIGDIO BOJORQUEZ on 09-15-2023 WBC (Bld) [#/Vol] 6.8 10*3/uL 3.5-11.0 [facility] fentaNYL+Norfentanyl [Presen ce] in Urine by Screen methodOrdered By: EMIGDIO BOJORQUEZ on 09-15-2023 fentaNYL+Norfentanyl Screen Ql (U) Negative Negative [facility] Vital Signs Date Time Vital Sign Value Performing Clinician Facility 07-06-2024 10:18-0400 Body temperature 100.51 [degF] Swetha Praisler-Wood DISABILITIES SERVICES OFFICER.EMERGENCY DISPATCHER Work Phone: [facility] 07-06-2024 10:18-0400 Body weight 67 kg Swetha Praisler-Wood DISABILITIES SERVICES OFFICER.EMERGENCY DISPATCHER Work Phone: [facility] 07-06-2024 10:18-0400 Diastolic blood pressure 80 mm[Hg] Swetha Praisler-Wood DISABILITIES SERVICES OFFICER.EMERGENCY DISPATCHER Work Phone: [facility] 07-06-2024 10:18-0400 Heart rate 123 /min Swetha Praisler-Wood DISABILITIES SERVICES OFFICER.EMERGENCY DISPATCHER Work Phone: [facility] 07-06-2024 10:18-0400 Respiratory rate 20 /min Swetha Praisler-Wood DISABILITIES SERVICES OFFICER.EMERGENCY DISPATCHER Work Phone: [facility] 07-06-2024 10:18-0400 SaO2% (BldA) [Mass fraction] 98 % Swetha Praisler-Wood DISABILITIES SERVICES OFFICER.EMERGENCY DISPATCHER Work Phone: [facility] 07-06-2024 10:18-0400 Systolic blood pressure 108 mm[Hg] Swetha Praisler-Wood DISABILITIES SERVICES OFFICER.EMERGENCY DISPATCHER Work Phone: [facility] 06-28-2024 13:56-0400 Body height 162.56 cm No Primary Care Physician [facility] 06-28-2024 13:56-0400 Body mass index (BMI) [Ratio] 25.6 kg/m2 No Primary Care Physician [facility] 06-28-2024 13:56-0400 Body weight 67.64 kg No Primary Care Physician [facility] 06-28-2024 13:56-0400 Diastolic blood pressure 74 mm[Hg] No Primary Care Physician [facility] 06-28-2024 13:56-0400 Systolic blood pressure 117 mm[Hg] No Primary Care Physician [facility] 05-18-2024 09:03-0400 Body temperature 98 [degF] No Primary Care Physician [facility] 05-18-2024 09:03-0400 Diastolic blood pressure 72 mm[Hg] No Primary Care Physician [facility] 05-18-2024 09:03-0400 Heart rate 78 /min No Primary Care Physician [facility] 05-18-2024 09:03-0400 Respiratory rate 18 /min No Primary Care Physician [facility] 05-18-2024 09:03-0400 SaO2% (BldA) [Mass fraction] 97 % No Primary Care Physician [facility] 05-18-2024 09:03-0400 Systolic blood pressure 121 mm[Hg] No Primary Care Physician [facility] 05-16-2024 07:17-0400 Body height 162.56 cm No Primary Care Physician [facility] 05-16-2024 07:17-0400 Body mass index (BMI) [Ratio] 31 kg/m2 No Primary Care Physician [facility] 05-16-2024 07:17-0400 Body weight 82.1 kg No Primary Care Physician [facility] 05-09-2024 19:39-0400 Body temperature 98 [degF] No Primary Care Physician [facility] 05-09-2024 19:39-0400 Diastolic blood pressure 69 mm[Hg] No Primary Care Physician [facility] 05-09-2024 19:39-0400 Heart rate 85 /min No Primary Care Physician [facility] 05-09-2024 19:39-0400 Respiratory rate 16 /min No Primary Care Physician [facility] 05-09-2024 19:39-0400 Systolic blood pressure 124 mm[Hg] No Primary Care Physician [facility] 05-09-2024 15:29-0400 Body height 162.56 cm No Primary Care Physician [facility] 05-09-2024 15:29-0400 Body mass index (BMI) [Ratio] 30.2 kg/m2 No Primary Care Physician [facility] 05-09-2024 15:29-0400 Body weight 79.83 kg No Primary Care Physician [facility] 05-09-2024 15:29-0400 SaO2% (BldA) [Mass fraction] 100 % No Primary Care Physician [facility] 05-09-2024 13:54-0400 Body mass index (BMI) [Ratio] 29.6 kg/m2 No Primary Care Physician [facility] 05-09-2024 13:54-0400 Body weight 80.79 kg No Primary Care Physician [facility] 05-09-2024 13:54-0400 Diastolic blood pressure 82 mm[Hg] No Primary Care Physician [facility] 05-09-2024 13:54-0400 Systolic blood pressure 131 mm[Hg] No Primary Care Physician [facility] 05-01-2024 10:05-0400 Body height 165.1 cm No Primary Care Physician [facility] 05-01-2024 10:05-0400 Body mass index (BMI) [Ratio] 29.2 kg/m2 No Primary Care Physician [facility] 05-01-2024 10:05-0400 Body weight 79.83 kg No Primary Care Physician [facility] 05-01-2024 10:05-0400 Diastolic blood pressure 76 mm[Hg] No Primary Care Physician [facility] 05-01-2024 10:05-0400 Systolic blood pressure 114 mm[Hg] No Primary Care Physician [facility] 04-25-2024 10:01-0400 Body mass index (BMI) [Ratio] 28.8 kg/m2 No Primary Care Physician [facility] 04-25-2024 10:01-0400 Body weight 78.64 kg No Primary Care Physician [facility] 04-25-2024 10:01-0400 Diastolic blood pressure 69 mm[Hg] No Primary Care Physician [facility] 04-25-2024 10:01-0400 Systolic blood pressure 117 mm[Hg] No Primary Care Physician [facility] 04-19-2024 11:35-0400 Body height 165.1 cm No Primary Care Physician [facility] 04-19-2024 11:34-0400 Body mass index (BMI) [Ratio] 28.7 kg/m2 No Primary Care Physician [facility] 04-19-2024 11:34-0400 Body weight 78.24 kg No Primary Care Physician [facility] 04-19-2024 11:34-0400 Diastolic blood pressure 77 mm[Hg] No Primary Care Physician [facility] 04-19-2024 11:34-0400 Systolic blood pressure 119 mm[Hg] No Primary Care Physician [facility] 04-12-2024 10:26-0500 Body mass index (BMI) [Ratio] 28.3 kg/m2 No Primary Care Physician [facility] 04-12-2024 10:26-0500 Body weight 77.22 kg No Primary Care Physician [facility] 04-12-2024 10:26-0500 Diastolic blood pressure 74 mm[Hg] No Primary Care Physician [facility] 04-12-2024 10:26-0500 Systolic blood pressure 112 mm[Hg] No Primary Care Physician [facility] 03-30-2024 13:00-0500 Body mass index (BMI) [Ratio] 27.8 kg/m2 No Primary Care Physician [facility] 03-30-2024 13:00-0500 Body weight 75.86 kg No Primary Care Physician [facility] 03-30-2024 13:00-0500 Diastolic blood pressure 86 mm[Hg] No Primary Care Physician [facility] 03-30-2024 13:00-0500 Systolic blood pressure 136 mm[Hg] No Primary Care Physician [facility] 03-14-2024 11:04-0500 Body mass index (BMI) [Ratio] 27 kg/m2 No Primary Care Physician [facility] 03-14-2024 11:04-0500 Body weight 73.7 kg No Primary Care Physician [facility] 03-14-2024 11:04-0500 Diastolic blood pressure 75 mm[Hg] No Primary Care Physician [facility] 03-14-2024 11:04-0500 Systolic blood pressure 121 mm[Hg] No Primary Care Physician [facility] 03-02-2024 14:14-0500 Body mass index (BMI) [Ratio] 26.9 kg/m2 No Primary Care Physician [facility] 03-02-2024 14:14-0500 Body weight 73.48 kg No Primary Care Physician [facility] 03-02-2024 14:14-0500 Diastolic blood pressure 82 mm[Hg] No Primary Care Physician [facility] 03-02-2024 14:14-0500 Systolic blood pressure 122 mm[Hg] No Primary Care Physician [facility] 2024 09:56-0500 Body mass index (BMI) [Ratio] 26.6 kg/m2 No Primary Care Physician [facility] 2024 09:56-0500 Body weight 72.57 kg No Primary Care Physician [facility] 2024 09:56-0500 Diastolic blood pressure 85 mm[Hg] No Primary Care Physician [facility] 2024 09:56-0500 Systolic blood pressure 136 mm[Hg] No Primary Care Physician [facility] 01-20-2024 15:42-0500 Body mass index (BMI) [Ratio] 25.8 kg/m2 No Primary Care Physician [facility] 01-20-2024 15:42-0500 Body weight 70.47 kg No Primary Care Physician [facility] 01-20-2024 15:42-0500 Diastolic blood pressure 75 mm[Hg] No Primary Care Physician [facility] 01-20-2024 15:42-0500 Systolic blood pressure 116 mm[Hg] No Primary Care Physician [facility] 05-24-2023 19:38-0400 Body temperature 98.71 [degF] Asiya Pressley DISABILITIES SERVICES OFFICER.EMERGENCY DISPATCHER Work Phone: [facility] 05-24-2023 19:38-0400 Body weight 63.7 kg Asiya Pressley DISABILITIES SERVICES OFFICER.EMERGENCY DISPATCHER Work Phone: [facility] 05-24-2023 19:38-0400 Diastolic blood pressure 73 mm[Hg] Asiya Pressley DISABILITIES SERVICES OFFICER.EMERGENCY DISPATCHER Work Phone: [facility] 05-24-2023 19:38-0400 Heart rate 79 /min Asiya Pressley DISABILITIES SERVICES OFFICER.EMERGENCY DISPATCHER Work Phone: [facility] 05-24-2023 19:38-0400 Respiratory rate 18 /min Asiya Pressley DISABILITIES SERVICES OFFICER.EMERGENCY DISPATCHER Work Phone: [facility] 05-24-2023 19:38-0400 SaO2% (BldA) [Mass fraction] 98 % Asiya Pressley DISABILITIES SERVICES OFFICER.EMERGENCY DISPATCHER Work Phone: [facility] 05-24-2023 19:38-0400 Systolic blood pressure 115 mm[Hg] Asiya Pressley DISABILITIES SERVICES OFFICER.EMERGENCY DISPATCHER Work Phone: [facility] 10-17-2022 11:01-0400 Body temperature 97.81 [degF] Chester Drakewillis DISABILITIES SERVICES OFFICER.EMERGENCY DISPATCHER Work Phone: [facility] 10-17-2022 11:01-0400 Body weight 62.14 kg Chester Drakewillis DISABILITIES SERVICES OFFICER.EMERGENCY DISPATCHER Work Phone: [facility] 10-17-2022 11:01-0400 Diastolic blood pressure 62 mm[Hg] Chester Funmi DISABILITIES SERVICES OFFICER.EMERGENCY DISPATCHER Work Phone: [facility] 10-17-2022 11:01-0400 Heart rate 86 /min [facility] DIS[facility]IL[facility]IES [facility] OFFICER.EMERGENCY DISPATCHER Work Phone: [facility] 10-17-2022 11:01-0400 Respiratory rate 16 /min [facility] DIS[facility]ILITIES SERVICES OFFICER.EMERGENCY DISPATCHER Work Phone: [facility] 10-17-2022 11:01-0400 SaO2% (BldA) [Mass fraction] 99 % [facility] DISABILITIES SERVICES OFFICER.EMERGENCY DISPATCHER Work Phone: [facility] 10-17-2022 11:01-0400 Systolic blood pressure 102 mm[Hg] [facility] DIS[facility]ILITIES SERVICES OFFICER.EMERGENCY DISPATCHER Work Phone: [facility] Encounters Encounter Date Encounter Type Care Provider Facility Start: 07-12-2024 ambulatory No Primary Car e Physician Facility:[facility] Start: 07-12-2024 End: 07-12-2024 ambulatory No Primary Care Physician Facility:[facility] Start: 07-06-2024 End: 07-06-2024 Patient encounter procedure Swetha Hager DISABILITIES SERVICES OFFICER.EMERGENCY DISPATCHER Work Phone: [facility] Comment on above: Mastitis in female ( Primary Dx) Start: 07-06-2024 End: 07-06-2024 ambulatory SWETHA HAGER Facility:[facility] Start: 06-28-2024 End: 06-28-2024 ambulatory No Primary Care Physician [facility] Work Phone: Start: 06-28-2024 End: 06-28-[address] Lyla Taylor MD -Laboratory Specimen Work Phone: Start: 06-28-2024 Encounter for genera l adult medical examination without abnormal findings Lyla Taylor [facility] Start: 06-28-2024 End: 06-28-[address] Lyla Taylor MD -[facility] Work Phone: Start: 06-28-2024 End: 06-28-2024 ambulatory Lyla Taylor Facility:[facility] Start: 06-28-2024 End: 06-28-2024 ambulatory Lyla Taylor Facility:[facility] Start: 05-31-2024 End: 05-31-2024 ambulatory [facility] Facility:[facility] Start: 05-18-2024 Non-patient / Non-visit Dr. Keke Ruggiero DO [facility] Start: 05-17-2024 Non-patient / Non-visit Dr. Keke Ruggiero DO [facility] Start: 05-16-2024 Non-patient / Non-visit Dr. Lyla Taylor MD -[facility] Start: 05-16-2024 ambulatory No Primary Car e Physician Facility:[facility] Start: 05-16-2024 End: 05-18-2024 Evaluation and management of inpatient Dr. Lyla Taylor MD -[facility] Work Phone: Start: 05-09-2024 [facility] Start: 05-09-2024 Non-patient / Non-visit Dr. Lyla Taylor MD -[facility] Start: 05-09-2024 End: 05-09-[address] L[facility] Work Phone: Start: 05-09-2024 End: 05-09-2024 ambulatory No Primary Care Physician [facility] Work Phone: Start: 05-09-2024 End: 05-09-2024 ambulatory Lyla Taylor Facility:[facility] Start: 05-01-2024 End: 05-01-2024 Patient encounter procedure Мария Lowe CNM -[facility] Work Phone: Start: 05-01-2024 End: 05-01-2024 ambulatory No Primary Care Physician Facility:[facility] Start: 04-25-2024 End: 04-25-[address] Lyla Taylor MD -[facility] Work Phone: Start: 04-25-2024 End: 04-25-2024 ambulatory No Primary Care Physician Facility:[facility] Start: 04-19-2024 End: 04-19-2024 ambulatory No Primary Care Physician [facility] Work Phone: Start: 04-19-2024 End: 04-19-[address] Keke Ruggiero DO -Laboratory, Specimen Work Phone: Start: 04-19-2024 End: 04-19-[address] Keke Ruggiero DO -[facility] Work Phone: Start: 04-19-2024 End: 04-19-2024 ambulatory No Primary Care Physician Facility:[facility] Start: 04-19-2024 End: 04-19-2024 ambulatory No Primary Care Physician Facility:[facility] Start: 04-12-2024 End: 04-12-2024 ambulatory No Primary Care Physician [facility] Work Phone: Start: 04-12-2024 End: 04-12-[address] Lyla Taylor MD -Laboratory, Specimen Work Phone: Start: 04-12-2024 End: 04-12-[address] Lyla Taylor MD -[facility] Work Phone: Start: 04-12-2024 End: 04-12-2024 ambulatory No Primary Care Physician Facility:[facility] Start: 04-12-2024 End: 04-12-2024 ambulatory No Primary Care Physician Facility:[facility] Start: 03-30-2024 End: 03-30-2024 Patient encounter procedure Мария Lowe CNM -[facility] Work Phone: Start: 03-30-2024 End: 03-30-2024 ambulatory No Primary Care Physician Facility:[facility] Start: 03-30-2024 End: 03-30-2024 ambulatory No Primary Care Physician Facility:[facility] Start: 03-14-2024 End: 03-14-[address] Lyla Taylor MD -[facility] Work Phone: Start: 03-14-2024 End: 03-14-2024 ambulatory No Primary Care Physician Facility:[facility] Start: 03-02-2024 End: 03-02-2024 Patient encounter procedure Мария Lowe CNM -[facility] Work Phone: Start: 03-02-2024 End: 03-02-2024 ambulatory No Primary Care Physician Facility:[facility] Start: 2024 End: 2024 Patient encounter procedure Brielle THURSTON -[facility] Work Phone: Start: 2024 End: 2024 ambulatory No Primary Care Physician Facility:[facility] Start: 2024 End: 2024 ambulatory No Primary Care Physician Facility:[facility] Start: 01-20-2024 End: 01-20-[address] Keke Ruggiero DO -[facility] Work Phone: Start: 01-20-2024 End: 01-20-2024 ambulatory No Primary Care Physician Facility:[facility] Start: 12-23-2023 End: 12-23-2023 ambulatory No Primary Care Physician Facility:[facility] Start: 12-15-2023 End: 12-15-2023 ambulatory [facility] Start: 11-18-2023 End: 11-18-2023 ambulatory No Primary Care Physician Facility:[facility] Start: 10-21-2023 End: 10-21-2023 ambulatory No Primary Care Physician Facility:[facility] Start: 10-21-2023 End: 10-21-2023 ambulatory No Primary Care Physician Facility:[facility] Start: 10-12-2023 ambulatory EMIGDIOUMBERTO saldana:[facility] Start: 10-12-2023 Evaluation and management of inpatient JERMAIN [facility] Ambulatory Start: 10-12-2023 End: 10-12-2023 Patient encounter procedure LEILANI CHRISTIE DO Work Phone: [facility] [place] Work Phone: Start: 10-12-2023 End: 10-12-2023 ambulatory LEILANI CHRISTIE DO Work Phone: [facility] Work Phone: Start: 10-12-2023 Evaluation and management of inpatient MIYA BEVERLY [facility] Ambulatory Start: 09-26-2023 ambulatory LEILANIMARIAM CHRISTIE Facility: [facility] Start: 09-26-2023 Evaluation and management of inpatient JERMAIN [facility] Ambulatory Start: 09-26-2023 End: 09-26-2023 Patient encounter procedure LEILANI CHRISTIE DO Work Phone: [facility] Work Phone: Start: 09-26-2023 End: 09-26-2023 ambulatory LEILANI CHRISTIE DO Work Phone: [facility] Work Phone: Start: 09-26-2023 Evaluation and management of inpatient OLINDA MARCUM [facility] Ambulatory Start: 09-15-2023 End: 09-15-2023 Patient encounter procedure LEILANI CHRISTIE DO Work Phone: [facility] [place] Work Phone: Start: 09-15-2023 End: 09-15-2023 ambulatory LEILANI CRUZE DO Work Phone: [facility] Work Phone: Start: 09-15-2023 Evaluation and management of inpatient MIYA PAUL [facility] Ambulatory Start: 07-21-2023 ambulatory LEILANI CHRISTIE Facility: [facility] Start: 07-21-2023 Evaluation and management of inpatient LEANNE MONTENEGRO [facility] Ambulatory Start: 07-21-2023 Office outpatient ne w 30 minutes [facility] Start: 06-14-2023 End: 06-14-2023 ambulatory EMIGDIO BOJORQUEZ Facility:[facility] Start: 06-14-2023 Evaluation and management of inpatient GLEN LANDAVERDE [facility] Ambulatory Start: 05-24-2023 End: 05-24-2023 Patient encounter procedure Asiya Pressley DISABILITIES SERVICES OFFICER.EMERGENCY DISPATCHER Work Phone: [facility] Comment on above: Acute otitis media, left (Primary Dx) Start: 10-17-2022 End: 10-17-2022 Office outpatient new 20 minutes Chester Funmi DISABILITIES SERVICES OFFICER.EMERGENCY DISPATCHER Work Phone: [facility] Comment on above: Rash (Primary Dx) Procedures Date Procedure Procedure Detail Performing Clinician Start: 06-28-2024 Urine culture No Primar y Care Physician Start: 05-16-2024 Serologic test for syphilis No Primary Care Physician Start: 05-09-2024 End: 05-09-2024 Measurement of pH in vaginal fluid specimen using nitrazine yellow for detection of rupture of amniotic membrane No Primary Care Physician Comment on above: Amniotic fluid not p resent indicates No Rupture of FetalMembranes at time of specimen collection. Start: 05-09-2024 Ultrasound scan for growth No Primary Care Physician Start: 04-19-2024 Measurement of pH in vaginal fluid specimen using nitrazine yellow for detection of rupture of amniotic membrane No Primary Care Physician Comment on above: Amniotic fluid not p resent indicates No Rupture of FetalMembranes at time of specimen collection. Start: 04-12-2024 Beta-hemolytic Strep tococcus culture No Primary Care Physician Start: 10-12-2023 Transvaginal obstetr ic ultrasonography LEILANI SHAHNAZ DO Work Phone: Start: 09-26-2023 Transvaginal obstetr ic ultrasonography LEILANI CHRISTIE DO Work Phone: Start: 09-15-2023 Antibody screen EMIGDIO BOJORQUEZ Comment on above: Order Comment: Nurse Monitor? N Diagnosis/Reason for Test: Encounter for supervision of other normal pregnanc Comments: 1 sample(s), Collect by: Lab. Type and screen Comments: 1 sample(s), Collect by: Lab., When: Next available Performed By: #### T S #### [facility] [address] [place] [address] , Giovany James M.D. FCAP, FASCP Start: 09-15-2023 Urine culture LEILANI LENZ DO Work Phone: Start: 03-09-2022 Insertion of intraut erine contraceptive device Plan of Treatment Date Care Activity Detail Author Start: 09-13-2024 Urine microalbumin profile DTaP,Tdap,Td Vaccine (5 - Td or Tdap) [facility] Start: 05-18-2024 Patient discharge [facility] Start: 05-16-2024 Documentation procedure [facility] Start: 05-16-2024 Administration of medication [facility] Start: 05-16-2024 Application of ice collar, cap or bag [facility] Start: 05-16-2024 Catheterization of vein [facility] Start: 05-16-2024 Introduction of urinary catheter [facility] Start: 05-16-2024 Measuring intake and output [facility] Start: 05-16-[address] [facility] Start: 05-16-2024 Procedure discontinued [facility] Start: 05-16-2024 Provision of activity privileges [facility] Start: 05-16-2024 Vital signs measurements [facility] Start: 05-16-2024 End: 05-16-2024 [facility] Start: 05-16-2024 Admission procedure [facility] Start: 05-09-2024 Nonstress test [facility] Start: 05-09-2024 Obstetric monitoring [facility] Start: 05-09-2024 Vital signs measurements [facility] Start: 05-09-2024 [facility] Start: 05-09-2024 Patient discharge [facility] Start: 10-09-2023 Covid-19 Vaccine () Covid-19 Vaccine () [facility] Start: 10-09-2023 Influenza vaccination Influenza Vaccine (Season Ended) [facility] Start: 09-15-2023 Bacteria identified in Urine by Culture [facility] Start: 2023 Screening for malignant neoplasm of cervix [facility] Start: 02-07-2023 Behavioral Health Screening Behavioral Health Screening [facility] Start: 10-08-2022 Covid-19 Vaccine ( season) Covid-19 Vaccine ( season) [facility] Start: 10-08-2022 Influenza vaccination INFLUENZA (#1) [facility] Start: 02-07-2022 DEPRESSION ASSESSMENT DEPRESSION ASSESSMENT [facility] Start: 2021 Urine microalbumin profile DTAP,TDAP,TD (1 - Tdap) [facility] Start: 02-15-2020 Annual PCP Team Chronic Disease Visit Annual PCP Team Chronic Disease Visit [facility] Start: 02-15-2020 Anxiety Screening Anxiety Screening [facility] Start: 02-15-2020 CHLAMYDIA SCREENING (18-24) CHLAMYDIA SCREENING (18-24) [facility] Start: 02-15-2020 Depression Screening Depression Screening [facility] Start: 02-15-2020 GC (GONORRHEA) SCREENING (18-24) GC (GONORRHEA) SCREENING (18-24) [facility] Start: 02-15-2020 HEPATITIS C SCREENING HEPATITIS C SCREENING [facility] Start: 02-15-2020 Hepatitis C screening Hepatitis C Screening [facility] Start: 02-15-2020 HIV SCREENING HIV SCREENING [facility] Start: 02-15-2020 HIV screening HIV Screening [facility] Start: 02-15-2020 Screening for Chlamydia trachomatis Chlamydia Screening (18-24) [facility] Start: 2018 Meningococcal B Vaccine (1 of 2 - Standard) Meningococcal B Vaccine (1 of 2 - Standard) [facility] Start: 2018 Meningococcal B Vaccine: Consider Based On Risk (1 of 2 - Patient Seeks Protection) Meningococcal B Vaccine: Consider Based On Risk (1 of 2 - Patient Seeks Protection) [facility] Start: 2018 MENINGOCOCCAL B: Consider based on risk (1 of 2 - Patient Seeks Protection) MENINGOCOCCAL B: Consider based on risk (1 of 2 - Patient Seeks Protection) [facility] Start: 01-08-2018 HPV Vaccine (1 - 3-dose series) HPV Vaccine (1 - 3-dose series) [facility] Start: 02-15-2016 PEDS TO ADULT TRANSITION ANNUAL ASSESSMENT PEDS TO ADULT TRANSITION ANNUAL ASSESSMENT [facility] Start: 2014 PEDS TO ADULT TRANSITION INITIAL DISCUSSION PEDS TO ADULT TRANSITION INITIAL DISCUSSION [facility] Start: 2011 HPV VACCINE (1 - 2-dose series) HPV VACCINE (1 - 2-dose series) [facility] Start: 2002 COVID-19 VACCINE (#1) COVID-19 VACCINE (#1) [facility] Start: 2002 HEPATITIS B (1 of 3 - 3-dose series) HEPATITIS B (1 of 3 - 3-dose series) [facility] Amphetamines [Presen ce] in Urine by Screen method [facility] Barbiturates [Presen ce] in Urine by Screen method [facility] Benzodiazepines [Pre sence] in Urine [facility] Cannabinoids [Presen ce] in Urine by Screen method [facility] Cocaine [Presence] i n Urine [facility] Ethanol [Presence] i n Urine by Screen method [facility] fentaNYL+Norfentanyl [Presence] in Urine by Screen method [facility] Methadone [Presence] in Urine by Screen method [facility] Opiates [Presence] i n Urine by Screen method [facility] oxyCODONE [Presence] in Urine [facility] Patient Education Kick Counts ED False Labor OB Triage: Return to Hospital or Notify Physician if you Experience: [facility] Work Phone: Patient referral [facility] Work Phone: Rubella virus IgG Ab [Presence] in Serum or Plasma by Immunoassay [facility] Treponema pallidum I gG Ab [Presence] in Serum by Immunoassay [facility] Immunizations Immunization Date Immunization Notes Care Provider Landy ken 11-18-2023 influenza, injectabl e, madin erick canine kidney, preservative free No Primary Care Physician [facility] 11-18-2023 Influenza, injectabl e, Madin [place] Canine Kidney, preservative free, quadrivalent No Primary Care Physician [facility] 04-04-2023 Hepatitis B vaccine (recombinant), CpG adjuvanted; Translations: [Hepatitis B vaccine (recombinant), adjuvant] [facility] 01-05-2023 influenza, injectabl e, quadrivalent, preservative free; Translations: [Influenza Quadrivalent Vaccine] [facility] 10-03-2019 meningococcal polysaccharide (groups A, C, Y and W-135) diphtheria toxoid conjugate vaccine (MCV4P) [facility] 09-13-2014 meningococcal polysaccharide (groups A, C, Y and W-135) diphtheria toxoid conjugate vaccine (MCV4P) [facility] 09-13-2014 tetanus toxoid, redu belgica diphtheria toxoid, and acellular pertussis vaccine, adsorbed [facility] 11-13-2013 influenza, live, intranasal, quadrivalent [facility] 11-13-2013 influenza virus vacc ine, unspecified formulation Asiya Pressley APRN.EMERGENCY DISPATCHER Work Phone: [facility] 03-05-2003 measles, mumps and rubella virus vaccine [facility] 03-05-2003 poliovirus vaccine, inactivated [facility] 01-01-2003 hepatitis B vaccine, pediatric or pediatric/adolescent dosage [facility] 2002 diphtheria, tetanus toxoids and acellular pertussis vaccine [facility] 2002 haemophilus influenz ae type b vaccine, HbOC conjugate [facility] 2002 DTaP-hepatitis B and poliovirus vaccine [facility] 2002 haemophilus influenz ae type b vaccine, HbOC conjugate [facility] 2002 diphtheria, tetanus toxoids and acellular pertussis vaccine [facility] 2002 haemophilus influenz ae type b vaccine, HbOC conjugate [facility] 2002 hepatitis B vaccine, pediatric or pediatric/adolescent dosage [facility] 2002 poliovirus vaccine, inactivated [facility] Payers Date Payer Category Payer Private Health Insurance [id number] 2023 Self-pay [id number] 2023 Private Health Insurance [id number] 2018 Private Health Insurance [id number] 2018 Unknown UMR UMR ANN MARIE [id number] 2018-Present [phone] [address] [address] [place] [address] PPO [id number] 2009 Unknown [id number] 2002 Unknown [id number] 2.16.840.1.080241.3.579.2.4 79 Unknown BCBS [id number] Unknown [id number] 2.16.840.1.959625.3.579.2.5 12 Unknown [id number] 2.16.840.1.351242.3.579.2.5 12 Unknown [id number] 2.16.840.1.877999.3.579.2.5 12 Unknown [id number] 2.16.840.1.166649.3.579.2.5 12 Unknown [id number] 2.16.840.1.606276.3.579.2.5 12 Unknown [id number] 2.16.840.1.195444.3.579.2.5 12 Unknown [id number] 2.16.840.1.123900.3.579.2.5 12 Unknown [id number] 2.16.840.1.750649.3.579.2.5 12 Unknown [id number] 2.16.840.1.881835.3.579.2.4 62 Unknown [id number] 2.16.840.1.554700.3.579.2.4 62 Unknown [id number] 2.16.840.1.542316.3.579.2.4 62 Unknown [id number] 2.16.840.1.100173.3.579.2.4 62 Unknown [id number] 2.16.840.1.120081.3.579.2.4 62 Unknown [id number] 2.16.840.1.087182.3.579.2.4 62 Unknown [id number] 2.16.840.1.809947.3.579.2.4 62 Unknown [id number] 2.16.840.1.091177.3.579.2.4 62 Unknown [id number] 2.16.840.1.522455.3.579.2.4 62 Unknown [id number] 2.16.840.1.406080.3.579.2.4 62 Unknown [id number] 2.16.840.1.742420.3.579.2.4 62 Unknown [id number] 2.16.840.1.378962.3.579.2.4 62 Unknown [id number] 2.16.840.1.710919.3.579.2.4 62 Unknown [id number] 2.16.840.1.142197.3.579.2.4 62 Unknown [id number] 2.16.840.1.907112.3.579.2.4 62 Unknown [id number] 2.16.840.1.906081.3.579.2.4 62 Unknown [id number] 2.16.840.1.000186.3.579.2.4 62 Unknown [id number] 2.16.840.1.658734.3.579.2.4 62 Unknown [id number] 2.16.840.1.667969.3.579.2.4 62 Unknown [id number] 2.16.840.1.415554.3.579.2.4 62 Unknown [id number] 2.16.840.1.165142.3.579.2.4 62 Unknown [id number] 2.16.840.1.578369.3.579.2.4 62 Unknown [id number] 2.16.840.1.314189.3.579.2.4 62 Unknown [id number] 2.16.840.1.176186.3.579.2.4 62 Unknown [id number] 2.16.840.1.761089.3.579.2.4 62 Unknown [id number] 2.16.840.1.710995.3.579.2.4 62 Unknown [id number] 2.16.840.1.989397.3.579.2.4 62 Unknown [id number] 2.16.840.1.802934.3.579.2.4 62 Unknown [id number] 2.16.840.1.581498.3.579.2.4 62 Social History Date Type Detail Facility Start: 03-23-2021 End: 10-17-2022 Tobacco smoking status [place] Never smoked tobacco [facility] Work Phone: Start: 10-17-2022 Tobacco use and exposure Smokeless tobacco non-user [facility] Work Phone: Start: 10-17-2022 End: 07-06-2024 History of Social function [facility] Start: 10-17-2022 End: 07-06-2024 Tobacco use panel [facility] Start: 2002 Sex Assigned At Not on file [facility] Start: 2002 Sex Assigned At Female [facility] Start: 03-23-2021 Never Smoked Never Smoked [facility] Start: 10-30-2020 No No [facility] Start: 09-15-2023 End: 05-18-2024 Sex Female (finding) [facility] Start: 10-19-2023 End: 06-28-2024 Tobacco smoking status [place] Ex-smoker (finding) [facility] NEGATED: Highlighted rowStart: NINF History of tobacco use Passive smoker [facility] Work Phone: Medical Equipment Procedure Code Equipment Code Equipment Origin al Text Equipment Identifier Dates NEGATED: Highlighted rowProcedure Implant ([id number]) Goals Date Patient Goal Desired Activity /State Clinical Notes 10-17-2022 to 07-06-2024 Patient InstructionsSwetha Hager APRN.[facility] - 07/06/2024 10:39 AM EDT Note Date & Type Note Facility 07-06-2024 Instructions Swetha Hager APRN.[facility]LEY - 07/06/2024 10:42 AM EDT 1. Mastitis in female (N61.0) - Recurrent mastitis, previously resolved with treatment. - Currently experiencing fever up to 102.5 degreeF and significant erythema on the left breast. - Currently on cephalexin for a UTI, which is not effective for mastitis. - Initiated additional antibiotic therapy; prescription sent to pharmacy. - Patient to return tomorrow for recheck in [facility]. - Finish your 7-day course of cephalexin for the UTI as prescribed, starting last night. - Begin the new antibiotic for your mastitis as soon as you merchandise pickup/receiving associate the prescription; follow the directions on the pharmacy label. - Return to [facility] tomorrow morning for recheck. documented in this encounter [facility] 07-06-2024 Note HNO ID: [id number] Author: SWETHA HAGER APRN.SMILEY Service: ? Author Type: Nurse Practitioner Type: Progress Notes Filed: 07/06/2024 10:43 Note Text: [facility] Subjective Efrain Alfaro is a 24 year old female. Patient presents with: Breast Problem: Left, breast, redness, pain, warmth, fever, body aches x 2 days HPI Mastitis: - Recent episode of mastitis approximately one month ago, resolved with treatment with Augmentin. - Current episode involves the left breast. - Reports fever up to 102.5 degreeF last night, with associated chills. - an 8-week-old . was full term (41 wks). UTI: - Currently taking cephalexin, started last night. - Uncertain if a urine culture was performed. Review of Systems Constitutional: Positive for chills and fatigue. Respiratory: Negative. Cardiovascular: Negative. Gastrointestinal: Negative for nausea and vomiting. Constitutional: (+) fever (+) chills Objective BP 108/80 Pulse (!) 123 Temp (!) 38.1 ?C (100.5 ?F) Resp 20 Wt 67 kg (147 lb 11.3 oz) LMP 05/04/2023 (Exact Date) SpO2 98% Yes No past medical history on file. No past surgical history on file. ALLERGIES Nystatin MEDICATIONS - Cephalexin 500 mg tab Take 500 mg by mouth three times a day. For UTI - vit,meredith 74/iron/folic ( VITAMIN 1+1 ORAL) Take 1 tablet by mouth once daily. - albuterol HFA (PROVENTIL HFA, VENTOLIN HFA) 90 mcg/actuation inhaler INHALE 2 PUFFS BY MOUTH INTO THE LUNGS EVERY 6 HOURS NEEDED FOR 30 DAYS - sulfamethoxazole-trimethoprim (BACTRIM DS) 800-160 mg per tablet Take 1 tablet by mouth two times a day for 7 days. - ferrous sulfate (IRON ORAL) Take by mouth. (Patient not taking: Reported on 07/06/2024) No family history on file. Social History Tobacco Use - Smoking status: Never Passive exposure: Never - Smokeless tobacco: Never Physical Exam Vitals and nursing note reviewed. Constitutional: General: She is not in acute distress. Appearance: Normal appearance. She is not ill-appearing. Cardiovascular: Rate and Rhythm: Tachycardia present. Pulmonary: Effort: Pulmonary effort is normal. Chest: Skin: General: Skin is warm and dry. Capillary Refill: Capillary refill takes less than 2 seconds. Coloration: Skin is not jaundiced. Findings: Erythema present. No bruising or rash. Neurological: Mental Status: She is alert. General: No acute distress. Breast: Erythema of left breast, induration of left breast. {1. Mastitis in female (N61.0) - Recurrent mastitis, previously resolved with treatment. - Currently experiencing fever up to 102.5 degreeF and significant erythema on the left breast. - Currently on cephalexin for a UTI, which is not effective for mastitis. - Initiated additional antibiotic therapy; prescription sent to pharmacy. - Patient to return tomorrow for recheck in [facility]. - Follow-up with your PCP in 3-5 days if symptoms have not improved or sooner if symptoms worsen - Discussed red flags and need for immediate medical evaluation if any occur. - Discussed supportive care treatment with fluids, rest and analgesia. - Discussed expected course of illness Swetha Hager APRN.EMERGENCY DISPATCHER and Recording using Ninite software for draft documentation of the visit was discussed with the patient/authorized freight representative; all questions welcomed and answered. Patient/authorized freight representative agreed to proceed History and Record Review Systemic symptoms present included: Disposition The patient was discharged. Transfer to ED was considered. Reason for not transferring: patient prefers outpatient treatment with recheck in [facility] tomorrow morning. OTC Medications were advised: Procedures [facility] 07-06-2024 History of Presen t illness Narrative Images from the original note were not included. [facility] Subjective Efrain Alfaro is a 24 year old female. Patient presents with: Breast Problem: Left, breast, redness, pain, warmth, fever, body aches x 2 days HPI Mastitis: - Recent episode of mastitis approximately one month ago, resolved with treatment with Augmentin. - Current episode involves the left breast. - Reports fever up to 102.5 degreeF last night, with associated chills. - an 8-week-old infant. Infant was full term (41 wks). UTI: - Currently taking cephalexin, started last night. - Uncertain if a urine culture was performed. Review of Systems Constitutional: Positive for chills and fatigue. Respiratory: Negative. Cardiovascular: Negative. Gastrointestinal: Negative for nausea and vomiting. Constitutional: (+) fever (+) chills Objective BP 108/80 Pulse (!) 123 Temp (!) 38.1 C (100.5 F) Resp 20 Wt 67 kg (147 lb 11.3 oz) LMP 05/04/2023 (Exact Date) SpO2 98% Yes No past medical history on file. No past surgical history on file. ALLERGIES Nystatin MEDICATIONS Cephalexin 500 mg tab Take 500 mg by mouth three times a day. For UTI vit,meredith 74/iron/folic ( VITAMIN 1+1 ORAL) Take 1 tablet by mouth once daily. albuterol HFA (PROVENTIL HFA, VENTOLIN HFA) 90 mcg/actuation inhaler INHALE 2 PUFFS BY MOUTH INTO THE LUNGS EVERY 6 HOURS NEEDED FOR 30 DAYS sulfamethoxazole-trimethoprim (BACTRIM DS) 800-160 mg per tablet Take 1 tablet by mouth two times a day for 7 days. ferrous sulfate (IRON ORAL) Take by mouth. (Patient not taking: Reported on 07/06/2024) No family history on file. Social History Tobacco Use Smoking status: Never Passive exposure: Never Smokeless tobacco: Never Physical Exam Vitals and nursing note reviewed. Constitutional: General: She is not in acute distress. Appearance: Normal appearance. She is not ill-appearing. Cardiovascular: Rate and Rhythm: Tachycardia present. Pulmonary: Effort: Pulmonary effort is normal. Chest: Skin: General: Skin is warm and dry. Capillary Refill: Capillary refill takes less than 2 seconds. Coloration: Skin is not jaundiced. Findings: Erythema present. No bruising or rash. Neurological: Mental Status: She is alert. General: No acute distress. Breast: Erythema of left breast, induration of left breast. {1. Mastitis in female (N61.0) - Recurrent mastitis, previously resolved with treatment. - Currently experiencing fever up to 102.5 degreeF and significant erythema on the left breast. - Currently on cephalexin for a UTI, which is not effective for mastitis. - Initiated additional antibiotic therapy; prescription sent to pharmacy. - Patient to return tomorrow for recheck in [facility]. - Follow-up with your PCP in 3-5 days if symptoms have not improved or sooner if symptoms worsen - Discussed red flags and need for immediate medical evaluation if any occur. - Discussed supportive care treatment with fluids, rest and analgesia. - Discussed expected course of illness Swetha Hager APRN.EMERGENCY DISPATCHER and Recording using Ninite software for draft documentation of the visit was discussed with the patient/authorized freight representative; all questions welcomed and answered. Patient/authorized freight representative agreed to proceed History and Record Review Systemic symptoms present included: Disposition The patient was discharged. Transfer to ED was considered. Reason for not transferring: patient prefers outpatient treatment with recheck in [facility] tomorrow morning. OTC Medications were advised: Procedures documented in this encounter [facility] 05-31-2024 Note HNO ID: [id number] Author: BONNIE JACOBSON APRN.EMERGENCY DISPATCHER Service: ? Author Type: Nurse Practitioner Type: Progress Notes Filed: 05/31/2024 12:38 Note Text: [facility] NOTE Subjective Efrain Alfaro is a 24 year old year old who presents to express care today with complaint of Right breast pain x5 days worsening, now states she feels areas of hardness along side and base of right breast. States she began feeling fevered last night with headache and body aches without other signs of illness. She is a 2 week old baby girl. Mom states some pain with baby latch. Denies headaches, fever, sore throat, cough, shortness of breath, chest pains, Nausea, vomiting, changes in bowel or bladder or skin rashes. No current medication treatments. Aside from symptoms as described above, patient has no other complaints at this time. HPI: see above Review of Systems Constitutional: Positive for chills, fatigue and fever. Respiratory: Negative for cough, shortness of breath and wheezing. Cardiovascular: Negative for chest pain, palpitations and leg swelling. Gastrointestinal: Negative for diarrhea, nausea and vomiting. Genitourinary: Negative for dysuria, frequency and urgency. Skin: Right breast tissue warm and tender to touch worsening over the past 5 days ALLERGIES Allergen Reactions Nystatin Unknown Current Outpatient Medications on File Prior to Visit Medication Sig albuterol HFA (PROVENTIL HFA, VENTOLIN HFA) 90 mcg/actuation inhaler INHALE 2 PUFFS BY MOUTH INTO THE LUNGS EVERY 6 HOURS NEEDED FOR 30 DAYS ferrous sulfate (IRON ORAL) Take by mouth. No current facility-administered medications on file prior to visit. ACTIVE PROBLEM LIST Mild Intermittent Asthma (Hcc) Social History Tobacco Use Smoking status: Never Passive exposure: Never Smokeless tobacco: Never Objective BP 128/87 Pulse (!) 140 Temp (!) 38.9 ?C (102 ?F) Resp 18 Wt 69.4 kg (153 lb) LMP 05/04/2023 (Exact Date) SpO2 97% Yes Physical Exam Vitals reviewed. Constitutional: General: She is not in acute distress. Appearance: Normal appearance. She is not ill-appearing or toxic-appearing. Cardiovascular: Rate and Rhythm: Normal rate and regular rhythm. Pulses: Normal pulses. Heart sounds: Normal heart sounds. Pulmonary: Effort: Pulmonary effort is normal. Breath sounds: Normal breath sounds. Chest: Breasts: Right: Tenderness present. Left: Tenderness present. Abdominal: General: Bowel sounds are normal. Palpations: Abdomen is soft. Skin: General: Skin is warm and dry. Capillary Refill: Capillary refill takes less than 2 seconds. Findings: Rash present. Rash is macular and papular. Comments: Maculo-papular elevated erythematous rash Efrain states is itchy yet improving, all area michelle easily Neurological: Mental Status: She is alert and oriented to person, place, and time. Assessment/Plan 1. Mastitis (Primary) - amoxicillin-clavulanate potassium (AUGMENTIN) 875-125 mg per tablet; Take 1 tablet by mouth two times a day for 10 days. Dispense: 20 tablet; Refill: 0 - lecithin, soy 1,200 mg cap; Take 1 capsule by mouth once daily. Dispense: 30 capsule; Refill: 4 2. Antibiotic-induced yeast infection - fluconazole (DIFLUCAN) 150 mg tablet; Take 1 tablet by mouth one time only for 1 dose. Repeat in 3 days as needed. Dispense: 2 tablet; Refill: 0 Will also treat current yeast-rash to breasts and upper thighs Patient advised to drink fluids, get rest and take all meds as prescribed. Patient given educational materials - see instructions. Discussed use, benefit, and side effects of prescribed medications. All questions answered. Patient advised to follow up with PCP in one week, or sooner if symptoms worsen or persist. If symptoms become severe- GO TO ED. Patient verbalized understanding and agreeable with treatment plan. Bonnie Jacobson APRN, CNP 05/31/2024 12:31 PM [facility] 05-18-2024 Discharge summary Note Date/Time May 18, 2024 9:24am [facility] Medical Records Department [address] [place] [address] Discharge Summary 05/18/24 0922 MR#: [id number] Acct: [id number] Name: EFRAIN VARGAS Rep #:[id number] : 2000 24 From: Keke Ruggiero DO PCP: Care Physician,No Primary Status :ADM IN Location: [id number] Providers Date of Admission: 05/16/24 Primary Care Physician: No Primary Care Phys Reason For Visit: VAG Diagnosis Discharge Diagnosis (1) Vaginal delivery: Status: Acute Code(s): O80 - Encounter for full-term uncomplicated delivery (2) Post-dates : Status: Acute Code(s): O48.0 - Post-term (3) Encounter for induction of labor: Status: Acute Code(s): Z34.90 - Encounter for supervision of normal , unspecified, unspecifiedtrimester (4) Uterine size-date discrepancy, third trimester: Status: Acute Code(s): O26.843 - Uterine size-date discrepancy, third trimester (5) GBS (group B Streptococcus carrier), +RV culture, currently : Status: Acute Code(s): O99.820 - Streptococcus B carrier state complicating (6) Anemia affecting : Status: Acute Code(s): O99.019 - Anemia complicating , unspecified trimester (7) Rubella non-immune status, antepartum: Status: Acute Code(s): O09.899 - Supervision of other high risk pregnancies, unspecified trimester; Z28.39 - Other underimmunization status (8) Supervision of high-risk : Status: Acute Code(s): O09.90 - Supervision of high risk , unspecified, unspecified trimester Qualifiers: Trimester: second trimester Qualified Code(s): O09.92 - Supervision of high risk , unspecified, second trimester (9) : Status: Acute Code(s): Z34.90 - Encounter for supervision of normal , unspecified, unspecifiedtrimester Qualifiers: Weeks of gestation: 40 weeks Qualified Code(s): Z3A.40 - 40 weeks gestation of (10) Asthma: Status: Acute Code(s): J45.909 - Unspecified asthma, uncomplicated Plan s/p PPD # 1 1. routine post delivery care 2. breast feeding- support given 3. rh positive 4. rubella non- immune- to vaccinate prior to discharge Medications at Discharge Home Medications multivit-min no.71-iron fum 28 mg-folate no.1 1 mg-dha 300 mg capsule ([facility]) 1 cap PO DAILY 10/19/23 ferrous gluconate 324 mg (37.5 mg iron) tablet 324 mg PO QDAY anemia #90 tabs 02/14/24 budesonide 90 mcg/actuation breath activated powder inhaler 2 inh inhalation BIDasthma #1 ea 03/14/24 Hospital Course Operations None Procedures - (vaginal delivery ) Summary of Care Provided Minutes Spent on Discharge: 10 Hospital Course: The patient was admitted on 05/16/24 for IOL. She delivered vaginally on 05/16/24. She recovered well on post day #1 and required minimal assistance with breast feeding and pain management. On day #2 she was discharged to home in stable condition. Physical Exam Const alert, oriented x3 and no apparent distress General Appearance: cooperative and comfortable Resp normal respiratory effort Cardio regular rate GI normal to inspection, nondistended, normoactive bowel sounds GI Narrative: uterus is firm below umbilicus Palpation: soft Back/Spine no CVA tenderness and thoraco-lumbar ROM normal Extremity normal to inspection, no clubbing, cyanosis or edema, no calf tenderness and no pedal edema Psych mental status grossly normal, thought process normal, cooperative, affect normal, speech normal, activity/motor behavior normal, denies homicidal ideationand denies suicidal ideation Weight / BMI Weight Weight: 180 lb 15.992 oz Body Mass Index (BMI) 31.0 ABG / Lab / Microbiology Data 05/16/24 08:10 D/C Instructions Discharge Diet: No restrictions May resume sexual activity in: 4-6 weeks Call your doctor if your incision/area has: Continuous Slow Oozing, Sudden Increased Bleeding, Increased Pain/ Swelling, Increased Redness and Foul Smelling Discharge DC O2, CPAP, BIPAP Needs Home O2 Discharge instructions: No Please Follow Up With: Lyla Taylor MD When: Call [phone] to make an appointment with your doctor in 6 weeks. If you had elevated blood pressure or 4th degree laceration, you will need to be seen in 2 weeks. Meaningful Use Info Meaningful Use Meaningful Use Diagnoses (Choose all that apply): None applicable Ischemic Stroke Statin Dosing Therapy Reference: STATIN DOSE THERAPY REFERENCE: * Patients > 75 years receive moderate or high dose statin therapy. * Patients 75 years or YOUNGER should receive HIGH intensity statin dose unless contraindicated. You will be required to document reason for non-treatment if statin daily dose does not meet guidelines. HIGH DOSE STATIN THERAPY DAILY Atorvastatin > than or = to 40 mg Rosuvastatin > than or = to 20 mg Amlodipine + Atorvastatin > than or = to 2.5/40 mg Ezetimibe + Simvastatin 10/80 mg Simvastatin 80mg Discharge Plan Admission Admit Date/Time: 05/16/24 07:00 Primary Reason for Your Visit: vaginal delivery Attending Provider: Lyla Taylor Primary Care Provider: Polina Physician,No Primary Discharge Orders/Prescriptions Prescriptions: Continued [facility] 28-1-300 mg capsule 1 cap PO DAILY budesonide 90 mcg/actuation aerosol powdr breath activated 2 inh inhalation BID Qty: 1 12RF ferrous gluconate 324 mg (37.5 mg iron) tablet 324 mg PO QDAY Qty: 90 1RF Referrals / Follow Up: Care Physician,No Primary [Primary Care Provider] - Disposition Disposition (needs filled in before D/C Order can be placed): Home, Self Care 05/18/24923 <Electronically signed by Keke Ruggiero DO> Cosigner Signature (if applicable): CC: Dr. Keke Ruggiero DO; No Primary Care Physician~ Signed [facility] Work Phone: [phone]) 946-721404-11-2025 Discharge summary [facility] Medical Records Department [address] [place] [id number] Discharge Summary 05/18/24921 MR#: [id number] Acct: [id number] Name: EFRAIN VARGAS Rep #:[id number] : 2000 24 From: Keke Ruggiero DO PCP: Care Physician,No Primary Status :ADM IN Location: [place] [id number] Providers Date of Admission: 05/16/24 Primary Care Physician: No Primary Care Phys Reason For Visit: VAG Diagnosis Discharge Diagnosis (1) Vaginal delivery: Status: Acute Code(s): O80 - Encounter for full-term uncomplicated delivery (2) Post-dates : Status: Acute Code(s): O48.0 - Post-term (3) Encounter for induction of labor: Status: Acute Code(s): Z34.90 - Encounter for supervision of normal , unspecified, unspecifiedtrimester (4) Uterine size-date discrepancy, third trimester: Status: Acute Code(s): O26.843 - Uterine size-date discrepancy, third trimester (5) GBS (group B Streptococcus carrier), +RV culture, currently : Status: Acute Code(s): O99.820 - Streptococcus B carrier state complicating (6) Anemia affecting : Status: Acute Code(s): O99.019 - Anemia complicating , unspecified trimester (7) Rubella non-immune status, antepartum: Status: Acute Code(s): O09.899 - Supervision of other high risk pregnancies, unspecified trimester; Z28.39 - Other underimmunization status (8) Supervision of high-risk : Status: Acute Code(s): O09.90 - Supervision of high risk , unspecified, unspecified trimester Qualifiers: Trimester: second trimester Qualified Code(s): O09.92 - Supervision of high risk , unspecified, second trimester (9) : Status: Acute Code(s): Z34.90 - Encounter for supervision of normal , unspecified, unspecifiedtrimester Qualifiers: Weeks of gestation: 40 weeks Qualified Code(s): Z3A.40 - 40 weeks gestation of (10) Asthma: Status: Acute Code(s): J45.909 - Unspecified asthma, uncomplicated Plan s/p PPD # 1 1. routine post delivery care 2. breast feeding- support given 3. rh positive 4. rubella non- immune- to vaccinate prior to discharge Medications at Discharge Home Medications multivit-min no.71-iron fum 28 mg-folate no.1 1 mg-dha 300 mg capsule ([facility]) 1 cap PO DAILY 10/19/23 ferrous gluconate 324 mg (37.5 mg iron) tablet 324 mg PO QDAY anemia #90 tabs 02/14/24 budesonide 90 mcg/actuation breath activated powder inhaler 2 inh inhalation BIDasthma #1 ea 03/14/24 Hospital Course Operations None Procedures - (vaginal delivery ) Summary of Care Provided Minutes Spent on Discharge: 10 Hospital Course: The patient was admitted on 05/16/24 for IOL. She delivered vaginally on 05/16/24. She recovered well on post day #1 and required minimal assistance with breast feeding and pain management. On day #2 she was discharged to home in stable condition. Physical Exam Const alert, oriented x3 and no apparent distress General Appearance: cooperative and comfortable Resp normal respiratory effort Cardio regular rate GI normal to inspection, nondistended, normoactive bowel sounds GI Narrative: uterus is firm below umbilicus Palpation: soft Back/Spine no CVA tenderness and thoraco-lumbar ROM normal Extremity normal to inspection, no clubbing, cyanosis or edema, no calf tenderness and no pedal edema Psych mental status grossly normal, thought process normal, cooperative, affect normal, speech normal, activity/motor behavior normal, denies homicidal ideationand denies suicidal ideation Weight / BMI Weight Weight: 180 lb 15.992 oz Body Mass Index (BMI) 31.0 ABG / Lab / Microbiology Data 05/16/24 08:10 D/C Instructions Discharge Diet: No restrictions May resume sexual activity in: 4-6 weeks Call your doctor if your incision/area has: Continuous Slow Oozing, Sudden Increased Bleeding, Increased Pain/ Swelling, Increased Redness and Foul Smelling Discharge DC O2, CPAP, BIPAP Needs Home O2 Discharge instructions: No Please Follow Up With: Lyla Taylor MD When: Call [phone] to make an appointment with your doctor in 6 weeks. If you had elevated blood pressure or 4th degree laceration, you will need to be seen in 2 weeks. Meaningful Use Info Meaningful Use Meaningful Use Diagnoses (Choose all that apply): None applicable Ischemic Stroke Statin Dosing Therapy Reference: STATIN DOSE THERAPY REFERENCE: * Patients > 75 years receive moderate or high dose statin therapy. * Patients 75 years or YOUNGER should receive HIGH intensity statin dose unless contraindicated. You will be required to document reason for non-treatment if statin daily dose does not meet guidelines. HIGH DOSE STATIN THERAPY DAILY Atorvastatin > than or = to 40 mg Rosuvastatin > than or = to 20 mg Amlodipine + Atorvastatin > than or = to 2.5/40 mg Ezetimibe + Simvastatin 10/80 mg Simvastatin 80mg Discharge Plan Admission Admit Date/Time: 05/16/24 07:00 Primary Reason for Your Visit: vaginal delivery Attending Provider: Lyla Taylor Primary Care Provider: Care Physician,No Primary Discharge Orders/Prescriptions Prescriptions: Continued [facility] 28-1-300 mg capsule 1 cap PO DAILY budesonide 90 mcg/actuation aerosol powdr breath activated 2 inh inhalation BID Qty: 1 12RF ferrous gluconate 324 mg (37.5 mg iron) tablet 324 mg PO QDAY Qty: 90 1RF Referrals / Follow Up: Care Physician,No Primary [Primary Care Provider] - Disposition Disposition (needs filled in before D/C Order can be placed): Home, Self Care 05/18/24 09 Cosigner Signature (if applicable): CC: Dr. Keke Ruggiero DO; No Primary Care Physician~ Signed [facility]04-11-2025 [facility] Medical Records Department [address] [place] [address] Discharge Summary 05/18/2422 MR#: [id number] Acct: [id number] Name: EFRAIN VARGAS Rep #: [id number] : 2000 24 From: Keke Ruggiero DO PCP: Care Physician,No Primary Status:ADM IN Location: [id number] Providers Date of Admission: 05/16/24 Primary Care Physician: No Primary Care Phys Reason For Visit: VAG Diagnosis Discharge Diagnosis (1) Vaginal delivery: Status: Acute Code(s): O80 - Encounter for full-term uncomplicated delivery (2) Post-dates : Status: Acute Code(s): O48.0 - Post-term (3) Encounter for induction of labor: Status: Acute Code(s): Z34.90 - Encounter for supervision of normal , unspecified, unspecified trimester (4) Uterine size-date discrepancy, third trimester: Status: Acute Code(s): O26.843 - Uterine size-date discrepancy, third trimester (5) GBS (group B Streptococcus carrier), +RV culture, currently : Status: Acute Code(s): O99.820 - Streptococcus B carrier state complicating (6) Anemia affecting : Status: Acute Code(s): O99.019 - Anemia complicating , unspecified trimester (7) Rubella non-immune status, antepartum: Status: Acute Code(s): O09.899 - Supervision of other high risk pregnancies, unspecified trimester; Z28.39 - Other underimmunization status (8) Supervision of high-risk : Status: Acute Code(s): O09.90 - Supervision of high risk , unspecified, unspecified trimester Qualifiers: Trimester: second trimester Qualified Code(s): O09.92 - Supervision of high risk , unspecified, second trimester (9) : Status: Acute Code(s): Z34.90 - Encounter for supervision of normal , unspecified, unspecified trimester Qualifiers: Weeks of gestation: 40 weeks Qualified Code(s): Z3A.40 - 40 weeks gestation of (10) Asthma: Status: Acute Code(s): J45.909 - Unspecified asthma, uncomplicated Plan s/p PPD # 1 1. routine post delivery care 2. breast feeding- support given 3. rh positive 4. rubella non- immune- to vaccinate prior to discharge Medications at Discharge Home Medications multivit-min no.71-iron fum 28 mg-folate no.1 1 mg-dha 300 mg capsule ([facility]) 1 cap PO DAILY 10/19/23 ferrous gluconate 324 mg (37.5 mg iron) tablet 324 mg PO QDAY anemia #90 tabs 02/14/24 budesonide 90 mcg/actuation breath activated powder inhaler 2 inh inhalation BID asthma #1 ea 03/14/24 Hospital Course Operations None Procedures - (vaginal delivery ) Summary of Care Provided Minutes Spent on Discharge: 10 Hospital Course: The patient was admitted on 05/16/24 for IOL. She delivered vaginally on 05/16/24. She recovered well on post day #1 and required minimal assistance with breast feeding and pain management. On day #2 she was discharged to home in stable condition. Physical Exam Const alert, oriented x3 and no apparent distress General Appearance: cooperative and comfortable Resp normal respiratory effort Cardio regular rate GI normal to inspection, nondistended, normoactive bowel sounds GI Narrative: uterus is firm below umbilicus Palpation: soft Back/Spine no CVA tenderness and thoraco-lumbar ROM normal Extremity normal to inspection, no clubbing, cyanosis or edema, no calf tenderness and no pedal edema Psych mental status grossly normal, thought process normal, cooperative, affect normal, speech normal, activity/motor behavior normal, denies homicidal ideation and denies suicidal ideation Weight / BMI Weight Weight: 180 lb 15.992 oz Body Mass Index (BMI) 31.0 ABG / Lab / Microbiology Data 05/16/24 08:10 D/C Instructions Discharge Diet: No restrictions May resume sexual activity in: 4-6 weeks Call your doctor if your incision/area has: Continuous Slow Oozing, Sudden Increased Bleeding, Increased Pain/ Swelling, Increased Redness and Foul Smelling Discharge DC O2, CPAP, BIPAP Needs Home O2 Discharge instructions: No Please Follow Up With: Lyla Taylor MD When: Call [phone] to make an appointment with your doctor in 6 weeks. If you had elevated blood pressure or 4th degree laceration, you will need to be seen in 2 weeks. Meaningful Use Info Meaningful Use Meaningful Use Diagnoses (Choose all that apply): None applicable Ischemic Stroke Statin Dosing Therapy Reference: STATIN DOSE THERAPY REFERENCE: * Patients > 75 years receive moderate or high dose statin therapy. * Patients 75 years or YOUNGER should receive HIGH intensity statin dose unless contraindicated. You will be required to document reason for non-treatment if statin daily dose does not meet guidelines. HIGH DOSE STATIN THERAPY DAILY (more content not included)...[facility]04-10-2025 Progress note Author Keke Flores [facility] Note Date/Time May 17, 2024 7:1 2am [facility] Medical Records Department [address] [place] [address] Progress Note - OBGYN 05/17/24 0711 MR#: [id number] Acct: [id number] Name: SAMEFRAIN DAVE Rep #:[id number] : 2000 24 From: Keke Ruggiero DO PCP: Care Physician,No Primary Status :ADM IN Location: HK370-2 Subjective Subjective Patient doing well without complaints. Tolerating PO. Ambulating and voiding without difficulty. Feeding well. Denies chest pain, shortness of breath, calf pain/swelling, fevers, chills, lightheadedness. Objective Data Objective Data Vital Signs: Vital Signs Temp Pulse Resp BP Pulse Ox O2 Del Method 97.3 F L 89 16 115/62 99 Room Air 05/17/24 03:10 05/17/24 03:10 05/17/24 03:10 05/17/24 03:10 05/17/24 03:10 05/17/24 03:10 Oxygen Delivery Method Room Air Weight: 180 lb 15.992 oz Body Mass Index (BMI) 31.0 Intake & Output: Intake and Output for Last 24 Hours 05/15/24 05/16/24 05/17/24 23:59 23:59 23:59 Intake Total 3093.67 / 3093.67 250 / 250 Output Total 300 / 300 1300 / 1300 Balance 2793.67 / 2793.67 -1050 / -1050 Lab / Micro Data 05/16/24 08:10 Labs: Laboratory Results - last 24 hr 05/16/24 08:10: WBC 10.7, RBC 3.01 L, Hgb 10.0 L, Hct 28.6 L, MCV 95.0, MCH 33.2H, MCHC 35.0, RDW Std Deviation 50.8 H, RDW Coeff of Shelby 14.8 H, Plt Count 168, MPV 9.9, Immature Gran % (Auto) 0.500, Neut % (Auto) 77.8 H, Lymph % (Auto) 15.2L, Esmeralda % (Auto) 5.3, Eos % (Auto) 0.8, Baso % (Auto) 0.4, Absolute Neuts (auto)8.3 H, Absolute Lymphs (auto) 1.63, Nucleated RBC % 0, Syphilis Total Ab Nonreactive, Blood Type O POSITIVE, Antibody Screen NEGATIVE ROS Constitutional Constitutional: Denies chills, fatigue, fever(s), poor appetite or weakness Eyes Eyes: Denies blurry vision, change in vision, seeing flashes or spots in vision ENT HEENT: Denies dizziness, headache(s), loss taste/smell or sore throat Cardiovascular Cardiovascular: Denies chest pain, dizziness, dyspnea, irregular heart rhythm, palpitations or rapid heart rate Respiratory/Chest Respiratory/Chest: Denies chest tightness, cough, dyspnea or breast pain Gastrointestinal Gastrointestinal: Denies abdominal pain, constipation or vomiting Genitourinary Genitourinary: Denies dysuria or flank pain Musculoskeletal Musculoskeletal: Denies difficulty walking, joint pain, limited range of motion or numbness Neurologic Neurologic: Denies abnormal movements, abnormal speech, dizziness, numbness, seizure-like activity or syncope Psychiatric Psychiatric: Denies anxiety, behavioral changes, change in appetite, confusion, depression or suicidal thoughts Physical Exam Const alert, oriented x3 and no apparent distress General Appearance: cooperative and comfortable Resp normal respiratory effort Cardio regular rate GI normal to inspection, nondistended, normoactive bowel sounds GI Narrative: uterus is firm below umbilicus Palpation: soft Back/Spine no CVA tenderness and thoraco-lumbar ROM normal Extremity normal to inspection, no clubbing, cyanosis or edema, no calf tenderness and no pedal edema Psych mental status grossly normal, thought process normal, cooperative, affect normal, speech normal, activity/motor behavior normal, denies homicidal ideationand denies suicidal ideation Assessment & Plan (1) Vaginal delivery: COMMENT: SM IOL postdates 41 al (2) Post-dates : (3) Encounter for induction of labor: (4) Uterine size-date discrepancy, third trimester: COMMENT: nl growth and lakia (5) GBS (group B Streptococcus carrier), +RV culture, currently : COMMENT: PCN in labor (6) Anemia affecting : (7) Rubella non-immune status, antepartum: COMMENT: offer MMR PP (8) Supervision of high-risk : QUALIFIERS: Trimester: second trimester Qualified Code(s): O09.92- Supervision of high risk , unspecified, second trimester COMMENT: PRR , ESTELA 05/11/24, girl Gerson (9) : QUALIFIERS: Weeks of gestation: 40 weeks Qualified Code(s): Z3A.40 - 40 weeks gestation of COMMENT: NIPT low risk, carrier neg. , normal anatomy (10) Asthma: COMMENT: moderate persistent, needs to establish with PCP, will start on daily budesonide. albuterol rescue. PLAN: Plan s/p PPD # 1 1. routine post delivery care 2. breast feeding- support given 3. rh positive 4. rubella non- immune- to vaccinate prior to discharge 05/17/24 0712 <Electronically signed by Keke Ruggiero DO> Cosigner Signature (if applicable): CC: ~ Signed [facility] Work Phone: 1(461) 825-568004-10-2025 Progress note [facility] Medical Records Department [address] [place] [address] Progress Note - OBGYN 05/17/24 0711 MR#: [id number] Acct: [id number] Name: SAMEFRAIN DAVE Rep #:[id number] : 2000 24 From: Keke Ruggiero DO PCP: Care Physician,No Primary Status :ADM IN Location: FO686-0 Subjective Subjective Patient doing well without complaints. Tolerating PO. Ambulating and voiding without difficulty. Feeding well. Denies chest pain, shortness of breath, calf pain/swelling, fevers, chills, lightheadedness. Objective Data Objective Data Vital Signs: Vital Signs Temp Pulse Resp BP Pulse Ox O2 Del Method 97.3 F L 89 16 115/62 99 Room Air 05/17/24 03:10 05/17/24 03:10 05/17/24 03:10 05/17/24 03:10 05/17/24 03:10 05/17/24 03:10 Oxygen Delivery Method Room Air Weight: 180 lb 15.992 oz Body Mass Index (BMI) 31.0 Intake & Output: Intake and Output for Last 24 Hours 05/15/24 05/16/24 05/17/24 23:59 23:59 23:59 Intake Total 3093.67 / 3093.67 250 / 250 Output Total 300 / 300 1300 / 1300 Balance 2793.67 / 2793.67 -1050 / -1050 Lab / Micro Data 05/16/24 08:10 Labs: Laboratory Results - last 24 hr 05/16/24 08:10: WBC 10.7, RBC 3.01 L, Hgb 10.0 L, Hct 28.6 L, MCV 95.0, MCH 33.2H, MCHC 35.0, RDW Std Deviation 50.8 H, RDW Coeff of Shelby 14.8 H, Plt Count 168, MPV 9.9, Immature Gran % (Auto) 0.500, Neut % (Auto) 77.8 H, Lymph % (Auto) 15.2L, Esmeralda % (Auto) 5.3, Eos % (Auto) 0.8, Baso % (Auto) 0.4, Absolute Neuts (auto)8.3 H, Absolute Lymphs (auto) 1.63, Nucleated RBC % 0, Syphilis Total Ab Nonreactive, Blood Type O POSITIVE, Antibody Screen NEGATIVE ROS Constitutional Constitutional: Denies chills, fatigue, fever(s), poor appetite or weakness Eyes Eyes: Denies blurry vision, change in vision, seeing flashes or spots in vision ENT HEENT: Denies dizziness, headache(s), loss taste/smell or sore throat Cardiovascular Cardiovascular: Denies chest pain, dizziness, dyspnea, irregular heart rhythm, palpitations or rapid heart rate Respiratory/Chest Respiratory/Chest: Denies chest tightness, cough, dyspnea or breast pain Gastrointestinal Gastrointestinal: Denies abdominal pain, constipation or vomiting Genitourinary Genitourinary: Denies dysuria or flank pain Musculoskeletal Musculoskeletal: Denies difficulty walking, joint pain, limited range of motion or numbness Neurologic Neurologic: Denies abnormal movements, abnormal speech, dizziness, numbness, seizure-like activity or syncope Psychiatric Psychiatric: Denies anxiety, behavioral changes, change in appetite, confusion, depression or suicidal thoughts Physical Exam Const alert, oriented x3 and no apparent distress General Appearance: cooperative and comfortable Resp normal respiratory effort Cardio regular rate GI normal to inspection, nondistended, normoactive bowel sounds GI Narrative: uterus is firm below umbilicus Palpation: soft Back/Spine no CVA tenderness and thoraco-lumbar ROM normal Extremity normal to inspection, no clubbing, cyanosis or edema, no calf tenderness and no pedal edema Psych mental status grossly normal, thought process normal, cooperative, affect normal, speech normal, activity/motor behavior normal, denies homicidal ideationand denies suicidal ideation Assessment & Plan (1) Vaginal delivery: COMMENT: SM IOL postdates 41 al (2) Post-dates : (3) Encounter for induction of labor: (4) Uterine size-date discrepancy, third trimester: COMMENT: nl growth and lakia (5) GBS (group B Streptococcus carrier), +RV culture, currently : COMMENT: PCN in labor (6) Anemia affecting : (7) Rubella non-immune status, antepartum: COMMENT: offer MMR PP (8) Supervision of high-risk : QUALIFIERS: Trimester: second trimester Qualified Code(s): O09.92- Supervision of high risk , unspecified, second trimester COMMENT: PRR , ESTELA 05/11/24, girl [place]erson (9) : QUALIFIERS: Weeks of gestation: 40 weeks Qualified Code(s): Z3A.40 - 40 weeks gestation of COMMENT: NIPT low risk, carrier neg. , normal anatomy (10) Asthma: COMMENT: moderate persistent, needs to establish with PCP, will start on daily budesonide. albuterol rescue. PLAN: Plan s/p PPD # 1 1. routine post delivery care 2. breast feeding- support given 3. rh positive 4. rubella non- immune- to vaccinate prior to discharge 05/17/24 0712 Cosigner Signature (if applicable): CC: ~ Signed [facility]04-09-2025 Discharge summary Author yLla Taylor [facility] Note Date/Time May 16, 2024 9:45 pm [facility] Medical Records Department [address] [place] [address] Instructions for Home/Discharge Instructions 05/16/242144 MR#: [id number] Acct: [id number] Name: EFRAIN VARGAS Rep #:[id number] : 2000 24 From: Lyla reinoso MD PCP: Care Physician,No Primary Status :ADM IN Discharge Instructions Diet Discharge Diet: No restrictions DC O2, CPAP, BIPAP needs Home O2 Discharge instructions: No Dressing / Incision Discharge Activity: Return to Normal Activity, May Not Drive (while taking narcotic pain medications.) and May Shower May resume sexual activity in: 4-6 weeks Dressing / Incision Call your doctor if your incision/area has: Continuous Slow Oozing, Sudden Increased Bleeding, Increased Pain/ Swelling, Increased Redness and Foul Smelling Discharge Follow Up Care Please Follow Up With: Lyla Taylor MD When: Call [phone] to make an appointment with your doctor in 6 weeks. If you had elevated blood pressure or 4th degree laceration, you will need to be seen in 2 weeks. Test Results: Test results from this visit will be discussed in further detail at your follow- up appointment, if applicable. Discharge Plan Admission Admit Date/Time: 05/16/24 07:00 Attending Provider: Lyla Taylor Primary Care Provider: Care Physician,No Primary Discharge Orders/Prescriptions Prescriptions: No Action [facility] 28-1-300 mg capsule 1 cap PO DAILY budesonide 90 mcg/actuation aerosol powdr breath activated 2 inh inhalation BID Qty: 1 12RF ferrous gluconate 324 mg (37.5 mg iron) tablet 324 mg PO QDAY Qty: 90 1RF Referrals / Follow Up: Care Physician,No Primary [Primary Care Provider] - Disposition Disposition (needs filled in before D/C Order can be placed): Home, Self Care 05/16/242144<Electronically signed by Lyla Taylor MD>Lyla Taylor MD CC: No Primary Care Physician ~ Signed [facility] Work Phone: 1(942) 664-202304-09-2025 Discharge summary [facility] Medical Records Department [address] [place] [address] Instructions for Home/Discharge Instructions 05/16/242144 MR#: [id number] Acct: [id number] Name: EFRAIN VARGAS Rep #:[id number] : 2000 24 From: Lyla reinoso MD PCP: Care Physician,No Primary Status :ADM IN Discharge Instructions Diet Discharge Diet: No restrictions DC O2, CPAP, BIPAP needs Home O2 Discharge instructions: No Dressing / Incision Discharge Activity: Return to Normal Activity, May Not Drive (while taking narcotic pain medications.) and May Shower May resume sexual activity in: 4-6 weeks Dressing / Incision Call your doctor if your incision/area has: Continuous Slow Oozing, Sudden Increased Bleeding, Increased Pain/ Swelling, Increased Redness and Foul Smelling Discharge Follow Up Care Please Follow Up With: Lyla Taylor MD When: Call [phone] to make an appointment with your doctor in 6 weeks. If you had elevated blood pressure or 4th degree laceration, you will need to be seen in 2 weeks. Test Results: Test results from this visit will be discussed in further detail at your follow- up appointment, if applicable. Discharge Plan Admission Admit Date/Time: 05/16/24 07:00 Attending Provider: Lyla Taylor Primary Care Provider: Polina Wylie,Tory Primary Discharge Orders/Prescriptions Prescriptions: No Action [facility] 28-1-300 mg capsule 1 cap PO DAILY budesonide 90 mcg/actuation aerosol powdr breath activated 2 inh inhalation BID Qty: 1 12RF ferrous gluconate 324 mg (37.5 mg iron) tablet 324 mg PO QDAY Qty: 90 1RF Referrals / Follow Up: Care Physician,No Primary [Primary Care Provider] - Disposition Disposition (needs filled in before D/C Order can be placed): Home, Self Care 05/16/242144Lyla Taylor MD CC: No Primary Care Physician ~ Signed [facility]04-09-2025 Procedure note [facility] Medical Records Department [address] [place] [address] OB Vaginal Delivery 05/16/242141 MR#: [id number] Acct: [id number] Name: EFRAIN VARGAS Rep #:[id number] : 2000 24 From: Lyla reinoso MD PCP: Care Physician,No Primary Status :ADM IN Location: LT307-0 Assessment & Plan (1) Vaginal delivery: COMMENT: SM IOL postdates 41 al (2) Post-dates : (3) Encounter for induction of labor: (4) Uterine size-date discrepancy, third trimester: COMMENT: nl growth and lakia (5) GBS (group B Streptococcus carrier), +RV culture, currently : COMMENT: PCN in labor (6) Anemia affecting : (7) Rubella non-immune status, antepartum: COMMENT: offer MMR PP (8) Supervision of high-risk : QUALIFIERS: Trimester: second trimester Qualified Code(s): O09.92- Supervision of high risk , unspecified, second trimester COMMENT: PRR , ESTELA 05/11/24, girl [place]erson (9) : QUALIFIERS: Weeks of gestation: 40 weeks Qualified Code(s): Z3A.40 - 40 weeks gestation of COMMENT: NIPT low risk, carrier neg. , normal anatomy (10) Asthma: COMMENT: moderate persistent, needs to establish with PCP, will start on daily budesonide. albuterol rescue. Maternal Data Information ESTELA Calculator Estimated Delivery Date Method Current WG Current Estimate 05/09/24 Ultrasound #1 41w 0d Other Estimates 05/11/24 LMP (Certain) 40w 5d Vaginal Delivery Maternal Presentation Maternal Presentation: see assessment and plan Vaginal Delivery Information Procedure Performed: Spontaneous Vaginal Delivery Surgeon/Practitioner: Lyla Taylor Date of Procedure: 05/16/24 Pre-Procedure Diagnosis: see assessment and plan Post-Procedure Diagnosis: same Type of anesthesia: Epidural Estimated Blood Loss: 300 Findings Description of procedure: Patient began pushing and delivered the head in the ANDREW presentation. The head was delivered atraumatically and a loose nuchal cord ?1 was identified and easily reduced over the 's head. The anterior and posterior shoulders delivered without complication followed by the rest of the andthe infantwas placed on the maternal abdomen. Delayed cord clamping was employed for approximately 60 seconds. Cord was clamped and cut and gentle traction was applied to the cord and the placenta delivered spontaneously immediately following it was noted to be intact with three-vessel cord. The perineum and vagina were inspected and noted to have no significant laceration. EBL was 300. Patient and tolerated delivery well. Presentation: Vertex Placental Delivery Description: Spontaneous Specimen collected: Yes Description of specimen(s) removed: placenta Plaster Whittler educational speech language clinician: No Post Vaginal Deli Medications given after delivery: Other (pitocin) Complication Complications: No Multi Select Codes Urinary/Genital Urinary/Genital CPT Codes: 32668 Vaginal Delivery [facility] 05/16/242144 Cosigner Signature (if applicable): CC: Dr. Lyla Taylor MD; No Primary Care Physician~ Signed [facility]04-09-2025 History and physical note Author Lyla Taylor [facility] Note Date/Time May 16, 2024 8:29 am [facility] Medical Records Department [address] [place] [address] H&P Exam - STITCH CLEANER 05/16/2428 MR#: [id number] Acct: [id number] Name: EFRAIN VARGAS Rep #:[id number] : 2000 24 From: Lyla reinoso MD PCP: Care Physician,No Primary Status :ADM IN Location: [place] [address] HPI - General General Date of Admission: 05/16/24 HPI Narrative EFRAIN VARGAS, is a 24 F who presents for IOL secondary to postdates. Maternal Data Information ESTELA Calculator Estimated Delivery Date Method Current WG Current Estimate 05/09/24 Ultrasound #1 41w 0d Other Estimates 05/11/24 LMP (Certain) 40w 5d PFSH PFSH Home Medications ?Medication ?Instructions ?Recorded ?Last Taken ?Type multivit-min no.71-iron fum 28 1 cap PO DAILY pregnanc y 10/19/23 05/16/24 06:00 History mg-folate no.1 1 mg-dha 300 mg 1 cap capsule ([facility]) ferrous gluconate 324 mg (37.5 mg 324 mg PO QDAY anemi a #90 tabs 02/14/24 05/15/24 17:00 Rx iron) tablet budesonide 90 mcg/actuation breath 2 inh inhalation BI D asthma #1 ea 03/14/24 Unknown Rx activated powder inhaler Allergy/AdvReac Type Severity Reaction Status Date / Time No Known Allergies Allergy Verified 05/16/24 07:53 Family History Grandmother Cancer Maternal- Michael's Twin Sister Brain Cancer Normal stillborn 30wks gestation Surgical History History of tonsillectomy and adenoidectomy Social History adopted: No household members: spouse current occupational status: employed 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 [employer] current occupational exposures/hazards: No pets and animals: Yes (Avoid litter box) pets and animals: cat(s) and dog(s) history of recent travel: Yes ( and ) out of state: Yes out of country: Yes sexually active: Yes Smoking Status: Former smoker quit date: 04/07/21 Electronic Cigarette Use: with nicotine alcohol intake: current alcohol intake frequency: holidays/special occasions only details: Not while substance use type: does not use well-balanced diet: daily or most days caffeine: No eating out: 1-3 times/week during the past year weight has: remained stable what type of physical activity do you participate in: none delphine/anabaptism: Mu-Ism seatbelt use: sometimes do you feel safe at home: Yes additional social history: [employer]- [employer] History 1 Elective abortions Hx Para 0 Spontaneous abortions Hx # Term Pregnancies Ectopic pregnancies Hx # Pregnancies Multiple births # of living children Visit Details Expected Delivery Route/Plan Labor Preferences- CB/BF classes: enc labor support person: Gerson labor intervention preferences: [] pain management options preferred: limited if possible cut cord/dad catch: yes : yes PP control planned: discussed discussed possible routes of delivery and associated risks: [] special requests: [] Plans Covid status: [] Flu vaccine: given Tdap vaccine: [] Rhogam: NA LARC form signed: yes Problem list reviewed and updated with the most current plan of care details and appropriate orders placed. Relevant counseling for the gestational age provided. Continue routine care and follow up unless otherwise noted in visit notes/problem list details OB Flowsheet Initial Weight: 141 lb Date -?-?-?-?-?-?-?-?-?-?-?-?- EGA Weight BP Urine Prot -?-?-?-?-?-?-?-?-?-?-?-?- Glucose FHR FuHt Pres Dilation -?-?-?-?-?-?-?-?-?-?-?-?- Effaced St Visit Note 10/21/23 -?-?-?-?-?-?-?-?-?-?-?-?- 11w 2d 141 lb (+0 oz) 128/75 -?-?-?--?-?-?-?-?-?-?-?-?- 168 -?-?-?-?-?-?-?-?-?-?-?-?- KW- CRL cons wit h dates. Accepts NIPT and carrier. 11/18/23 -?-?-?-?-?-?-?-?-?-?-?-?- 15w 2d 143 lb (+2 lb) 109/72 Negative -?-?-?-?-?-?-?-?-?-?-?-?- Negative 150 -?-?-?-?-?-?-?-?-?-?-?-?- SM- co dysuria, culture sent 12/23/23 -?-?-?-?-?-?-?-?-?-?-?-?- 20w 2d 148 lb (+7 lb) 124/77 Negative -?-?-?-?-?-?-?-?-?-?-?-?- Negative 156 -?-?-?-?-?-?-?-?-?-?-?-?- LC- no vb/crampi ng. normal anatomy scan. sciatic discomfort- stretches recommended. 01/20/24 -?-?-?-?-?-?-?-?-?-?-?-?- 24w 2d 155 lb 6 oz (+14 lb 6 oz) 116/75 Negative -?-?-?-?-?-?-?-?-?-?-?-?- Negative 160 26 -?-?-?-?-?-?-?-?-?-?-?-?- JV- no lof, vagi nal bleeding, or dec fm. no complaints. 02/14/24 -?-?-?-?-?-?-?-?-?-?-?-?- 27w 6d 160 lb (+19 lb) 136/85 Negative -?-?-?-?-?-?-?-?-?-?-?-?- Negative 154 27 -?-?-?-?-?-?-?-?-?-?-?-?- MH-Good FM. Had one episode of pink tinged fluid with wiping 2 wk ago when in [place]. None since and reassured. Larc. 03/02/24 -?-?-?-?-?-?-?-?-?-?-?-?- 30w 2d 162 lb (+21 lb) 122/82 Negative -?-?-?-?-?-?-?-?-?-?-?-?- Negative 150 30 -?-?-?-?-?-?-?-?-?-?-?-?- KW- no vb/lof/ct x. good fm declines tdap. pepcid for acid reflux. 03/14/24 -?-?-?-?-?-?-?-?-?-?-?-?- 32w 0d 162 lb 8 oz (+21 lb 8 oz) 121/75 Negative -?-?-?-?-?-?-?-?-?-?-?-?- Negative 150 31 -?-?-?-?-?-?-?-?-?-?-?-?- SM- discussed an d asthma symptoms have worsened over the last months, using rescue inhaler daily and having SOB. will need to find PCP SELINA and started on budesonide n the meantime. 03/30/24 -?-?-?-?-?-?-?-?-?-?-?-?- 34w 2d 167 lb 4 oz (+26 lb 4 oz) 136/86 Negative -?-?-?-?-?-?-?-?-?-?-?-?- Negative 150 33 -?-?-?-?-?-?-?-?-?-?-?-?- KW- no vb/lof. g ood fm and noting some BH ctx. CBC today 04/12/24 -?-?-?-?-?-?-?-?-?-?-?-?- 36w 1d 170 lb 4 oz (+29 lb 4 oz) 112/74 Negative -?-?-?-?-?-?-?-?-?-?-?-?- Negative 140 36 Cephalic 0 .5 -?-?-?-?-?-?-?-?-?-?-?-?- SM- n ovb lof go od fm nor egular ctx gbs collected 04/19/24 -?-?--?-?-?-?-?-?-?-?-?-?- 37w 1d 172 lb 8 oz (+31 lb 8 oz) 119/77 Negative -?-?-?-?-?-?-?-?-?-?-?-?- Negative 146 37 Cephalic 0 .5 -?-?-?-?-?-?-?-?-?-?-?-?- JV- no lof, vagi nal bleeding, or dec fm. JV- no, vaginal bleeding, or dec fm. has some leaking fluid. JV- no, vaginal bleeding, or dec fm. has some leaking fluid.ROM + was negative 04/25/24 -?-?-?-?-?-?-?-?-?-?-?-?- 38w 0d 173 lb 6 oz (+32 lb 6 oz) 117/69 Negative -?-?-?-?-?-?-?-?-?-?-?-?- Negative 140 38 Cephalic 1 -?-?-?-?-?-?-?-?-?-?-?-?- SM- no vb lof go od fm n oreuglar ctx 05/01/24 -?-?-?-?-?-?-?-?-?-?-?-?- 38w 6d 176 lb (+35 lb) 114/76 Negative -?-?-?-?-?-?-?-?-?-?-?-?- Negative 130 40 Cephalic 1 -?-?-?-?-?-?-?-?-?-?-?-?- 30 -2 KW- no vb/ lof/ctx. good fm. discussed EPO and IOL at 41 weeks 05/09/24 -?-?-?-?-?-?-?-?-?-?-?-?- 40w 0d 178 lb 2 oz (+37 lb 2 oz) 131/82 -?-?-?-?-?-?-?-?-?-?-?-?- 145 37 Cephalic 1 -?-?-?-?-?-?-?-?-?-?-?-?- 30 -2 SM- no vb lof some dec fm no reuglar ctx fundal height dropped recommend US now and rom plus sent discussed FM precautions NST FHR Rate Baby A Baseline: 130 Variability:: Moderate Accelerations:: 15 x 15 Decelerations:: None NST Reactive:: Yes FHR Category:: Category I Uterine Activity:: irregular ROS Constitutional Constitutional: Reports systems reviewed and no addt'l complaints, except as documented Eyes Eyes: Denies change in vision ENT HEENT: Reports systems reviewed and no addt'l complaints, except as documented; Denies headache(s) Cardiovascular Cardiovascular: Reports systems reviewed and no addt'l complaints, except as documented; Denies chest pain or dyspnea Respiratory/Chest Respiratory/Chest: Reports systems reviewed and no addt'l complaints, except as documented Gastrointestinal Gastrointestinal: Reports systems reviewed and no addt'l complaints, except as documented; Denies abdominal pain Genitourinary Genitourinary: Reports systems reviewed and no addt'l complaints, except as documented, contractions Details: present (irregular) and movement Details: present; Denies dysuria or genital lesions Musculoskeletal Musculoskeletal: Reports systems reviewed and no addt'l complaints, except as documented Neurologic Neurologic: Reports systems reviewed and no addt'l complaints, except as documented Endocrine Endocrinology: Reports systems reviewed and no addt'l complaints, except as documented Vital Signs Vital Signs Vital Signs: Weight Weight: 180 lb 15.992 oz Body Mass Index (BMI) 31.0 Physical Exam Const alert, oriented x3, no apparent distress and healthy appearing HEENT normocephalic and moist oral mucous membranes Head and Scalp: atraumatic Neck full ROM, no lymphadenopathy, supple and thyroid normal General: trachea midline Lymph Lymphatic: no lymphadenopathy noted Chest inspection of chest normal Resp normal respiratory effort Cardio regular rate GI soft to palpation and non-tender GI Narrative: gravid Inspection: gravid external exam normal Manual OB Exam: estimated gestational size appropriate, presentation cephalic, dilated, effaced and station Extremity normal to inspection General Extremity: Negative for edema Skin no rashes or lesions noted Neuro no focal motor deficits and deep tendon reflexes 2+ bilaterally Motor Exam: strength 5/5 throughout and clonus absent Psych mental status grossly normal Labs Labs Labs: Blood Type O POSITIVE Antibody Screen NEGATIVE Hct 28.6 % (37-47) L Hgb 10.0 g/dL (12.0-15.0) L Obstetrics Ultrasound Syphilis Total Ab Non-reactive VZV IgG Antibody 219 index (Immune >165) Rubella IgG Antibody Equiv (Nonreactive) Hep Bs Antigen Non-Reactive (Nonreactive) Hepatitis C Antibody Non-Reactive (Nonreactive) Chlamydia DNA (SHARMILA) Negative (Negative) N.gonorrhoeae DNA (SHARMILA) Negative (Negative) HIV 1&2 Antibody Non-Reactive (Nonreactive) Glucose 1 Hr 50 gm 132 mg/dL (70-140) Assessment & Plan (1) Uterine size-date discrepancy, third trimester: COMMENT: nl growth and lakia (2) GBS (group B Streptococcus carrier), +RV culture, currently : COMMENT: PCN in labor (3) Anemia affecting : (4) Rubella non-immune status, antepartum: COMMENT: offer MMR PP (5) Supervision of high-risk : QUALIFIERS: Trimester: second trimester Qualified Code(s): O09.92 - Supervision of high risk , unspecified, second trimester COMMENT: PRR , ESTELA 05/11/24, girl [place] (6) : QUALIFIERS: Weeks of gestation: 40 weeks Qualified Code(s): Z3A.40 - 40 weeks gestation of COMMENT: NIPT low risk, carrier neg. , normal anatomy (7) Asthma: COMMENT: moderate persistent, needs to establish with PCP, will start on daily budesonide. albuterol rescue. (8) Encounter for induction of labor: (9) Post-dates : PLAN: Plan Patient presents IOL, plan management for with pit fb. Pain management: plans epidural. GBS pos plan pcn. Management of any complications: none I have reviewed the [facility] and made any clinically relevant updates. 05/16/24828 <Electronically signed by Lyla Taylor MD> Cosigner Signature (if applicable): CC: Dr. Lyla Taylor MD; No Primary Care Physician~ Signed [facility] Work Phone: 1(133) 199-982804-09-2025 History and physical note [facility] Medical Records Department [address] [place] [address] H&P Exam - STITCH CLEANER 05/16/24827 MR#: [id number] Acct: [id number] Name: EFRAIN VARGAS Rep #:[id number] : 2000 From: Lyla reinoso MD PCP: Care Physician,No Primary Status :ADM IN Location: [id number] HPI - General General Date of Admission: 05/16/24 HPI Narrative EFRAIN VARGAS, is a 24 F who presents for IOL secondary to postdates. Maternal Data Information ESTELA Calculator Estimated Delivery Date Method Current WG Current Estimate 05/09/24 Ultrasound #1 41w 0d Other Estimates 05/11/24 [facility] Medications ?Medication ?Instructions ?Recorded ?Last Taken ?Type multivit-min no.71-iron fum 28 1 cap PO DAILY pregnanc y 10/19/23 05/16/24 06:00 History mg-folate no.1 1 mg-dha 300 mg 1 cap capsule ([facility]) ferrous gluconate 324 mg (37.5 mg 324 mg PO QDAY anemi a #90 tabs 02/14/24 05/15/24 17:00 Rx iron) tablet budesonide 90 mcg/actuation breath 2 inh inhalation BI D asthma #1 ea 03/14/24 Unknown Rx activated powder inhaler Allergy/AdvReac Type Severity Reaction Status Date / Time No Known Allergies Allergy Verified 05/16/24 07:53 Family History Grandmother Cancer Maternal- Gma's Twin Sister Brain Cancer Normal stillborn 30wks gestation Surgical History History of tonsillectomy and adenoidectomy Social History adopted: No household members: spouse current occupational status: employed 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 [employer] current occupational exposures/hazards: No pets and animals: Yes (Avoid litter box) pets and animals: cat(s) and dog(s) history of recent travel: Yes ( and ) out of state: Yes out of country: Yes sexually active: Yes Smoking Status: Former smoker quit date: 04/07/21 Electronic Cigarette Use: with nicotine alcohol intake: current alcohol intake frequency: holidays/special occasions only details: Not while substance use type: does not use well-balanced diet: daily or most days caffeine: No eating out: 1-3 times/week during the past year weight has: remained stable what type of physical activity do you participate in: none delphine/anabaptism: Mu-Ism seatbelt use: sometimes do you feel safe at home: Yes additional social history: [place]- [employer] History 1 Elective abortions Hx Para 0 Spontaneous abortions Hx # Term Pregnancies Ectopic pregnancies Hx # Pregnancies Multiple births # of living children Visit Details Expected Delivery Route/Plan Labor Preferences- CB/BF classes: fredrick labor support person: Gerson labor intervention preferences: [] pain management options preferred: limited if possible cut cord/dad catch: yes : yes PP control planned: discussed discussed possible routes of delivery and associated risks: [] special requests: [] Plans Covid status: [] Flu vaccine: given Tdap vaccine: [] Rhogam: NA LARC form signed: yes Problem list reviewed and updated with the most current plan of care details and appropriate ordersplaced. Relevant counseling for the gestational age provided. Continue routine care and follow up unless otherwise noted in visit notes/problem list details OB Flowsheet Initial Weight: 141 lb Date -?-?-?-?-?-?-?-?-?-?-?-?- EGA Weight BP Urine Prot -?-?-?-?-?-?-?-?-?-?-?-?- Glucose FHR FuHt Pres Dilation -?-?-?-?-?-?-?-?-?-?-?-?- Effaced St Visit Note 10/21/23 -?-?-?-?-?-?-?-?-?-?-?-?- 11w 2d 141 lb (+0 oz) 128/75 -?-?-?--?-?-?-?-?-?-?-?-?- 168 -?-?-?-?-?-?-?-?-?-?-?-?- KW- CRL cons wit h dates. Accepts NIPT and carrier. 11/18/23 -?-?-?-?-?-?-?-?-?-?-?-?- 15w 2d 143 lb (+2 lb) 109/72 Negative -?-?-?-?-?-?-?-?-?-?-?-?- Negative 150 -?-?-?-?-?-?-?-?-?-?-?-?- SM- co dysuria, culture sent 12/23/23 -?-?-?-?-?-?-?-?-?-?-?-?- 20w 2d 148 lb (+7 lb) 124/77 Negative -?-?-?-?-?-?-?-?-?-?-?-?- Negative 156 -?-?-?-?-?-?-?-?-?-?-?-?- LC- no vb/crampi ng. normal anatomy scan. sciatic discomfort- stretches recommended. 01/20/24 -?-?-?-?-?-?-?-?-?-?-?-?- 24w 2d 155 lb 6 oz (+14 lb 6 oz) 116/75 Negative -?-?-?-?-?-?-?-?-?-?-?-?- Negative 160 26 -?-?-?-?-?-?-?-?-?-?-?-?- JV- no lof, vagi nal bleeding, or dec fm. no complaints. 02/14/24 -?-?-?-?-?-?-?-?-?-?-?-?- 27w 6d 160 lb (+19 lb) 136/85 Negative -?-?-?-?-?-?-?-?-?-?-?-?- Negative 154 27 -?-?-?-?-?-?-?-?-?-?-?-?- MH-Good FM. Had one episode of pink tinged fluid with wiping 2 wk ago when in [place]. None since and reassured. Larc. 03/02/24 -?-?-?-?-?-?-?-?-?-?-?-?- 30w 2d 162 lb (+21 lb) 122/82 Negative -?-?-?-?-?-?-?-?-?-?-?-?- Negative 150 30 -?-?-?-?-?-?-?-?-?-?-?-?- KW- no vb/lof/ct x. good fm declines tdap. pepcid for acid reflux. 03/14/24 -?-?-?-?-?-?-?-?-?-?-?-?- 32w 0d 162 lb 8 oz (+21 lb 8 oz) 121/75 Negative -?-?-?-?-?-?-?-?-?-?-?-?- Negative 150 31 -?-?-?-?-?-?-?-?-?-?-?-?- SM- discussed an d asthma symptoms have worsened over the last months, using rescue inhaler daily and having SOB. will need to find PCP SELINA and started on budesonide n the meantime. 03/30/24 -?-?-?-?-?-?-?-?-?-?-?-?- 34w 2d 167 lb 4 oz (+26 lb 4 oz) 136/86 Negative -?-?-?-?-?-?-?-?-?-?-?-?- Negative 150 33 -?-?-?-?-?-?-?-?-?-?-?-?- KW- no vb/lof. g ood fm and noting some BH ctx. CBC today 04/12/24 -?-?-?-?-?-?-?-?-?-?-?-?- 36w 1d 170 lb 4 oz (+29 lb 4 oz) 112/74 Negative -?-?-?-?-?-?-?-?-?-?-?-?- Negative 140 36 Cephalic 0 .5 -?-?-?-?-?-?-?-?-?-?-?-?- SM- n ovb lof go od fm nor egular ctx gbs collected 04/19/24 -?-?--?-?-?-?-?-?-?-?-?-?- 37w 1d 172 lb 8 oz (+31 lb 8 oz) 119/77 Negative -?-?-?-?-?-?-?-?-?-?-?-?- Negative 146 37 Cephalic 0 .5 -?-?-?-?-?-?-?-?-?-?-?-?- JV- no lof, vagi nal bleeding, or dec fm. JV- no, vaginal bleeding, or dec fm. has some leaking fluid. JV- no, vaginal bleeding, or dec fm. has some leaking fluid.ROM + was negative 04/25/24 -?-?-?-?-?-?-?-?-?-?-?-?- 38w 0d 173 lb 6 oz (+32 lb 6 oz) 117/69 Negative -?-?-?-?-?-?-?-?-?-?-?-?- Negative 140 38 Cephalic 1 -?-?-?-?-?-?-?-?-?-?-?-?- SM- no vb lof go od fm n oreuglar ctx 05/01/24 -?-?-?-?-?-?-?-?-?-?-?-?- 38w 6d 176 lb (+35 lb) 114/76 Negative -?-?-?-?-?-?-?-?-?-?-?-?- Negative 130 40 Cephalic 1 -?-?-?-?-?-?-?-?-?-?-?-?- 30 -2 KW- no vb/ lof/ctx. good fm. discussed EPO and IOL at 41 weeks 05/09/24 -?-?-?-?-?-?-?-?-?-?-?-?- 40w 0d 178 lb 2 oz (+37 lb 2 oz) 131/82 -?-?-?-?-?-?-?-?-?-?-?-?- 145 37 Cephalic 1 -?-?-?-?-?-?-?-?-?-?-?-?- 30 -2 SM- no vb lof some dec fm no reuglar ctx fundal height dropped recommend US now and rom plus sent discussed FM precautions NST FHR Rate Baby A Baseline: 130 Variability:: Moderate Accelerations:: 15 x 15 Decelerations:: None NST Reactive:: Yes FHR Category:: Category I Uterine Activity:: irregular ROS Constitutional Constitutional: Reports systems reviewed and no addt'l complaints, except as documented Eyes Eyes: Denies change in vision ENT HEENT: Reports systems reviewed and no addt'l complaints, except as documented; Denies headache(s) Cardiovascular Cardiovascular: Reports systems reviewed and no addt'l complaints, except as documented; Denies chest pain or dyspnea Respiratory/Chest Respiratory/Chest: Reports systems reviewed and no addt'l complaints, except as documented Gastrointestinal Gastrointestinal: Reports systems reviewed and no addt'l complaints, except as documented; Denies abdominal pain Genitourinary Genitourinary: Reports systems reviewed and no addt'l complaints, except as documented, contractions Details: present (irregular) and movement Details: present; Denies dysuria or genital lesions Musculoskeletal Musculoskeletal: Reports systems reviewed and no addt'l complaints, except as documented Neurologic Neurologic: Reports systems reviewed and no addt'l complaints, except as documented Endocrine Endocrinology: Reports systems reviewed and no addt'l complaints, except as documented Vital Signs Vital Signs Vital Signs: Weight Weight: 180 lb 15.992 oz Body Mass Index (BMI) 31.0 Physical Exam Const alert, oriented x3, no apparent distress and healthy appearing HEENT normocephalic and moist oral mucous membranes Head and Scalp: atraumatic Neck full ROM, no lymphadenopathy, supple and thyroid normal General: trachea midline Lymph Lymphatic: no lymphadenopathy noted Chest inspection of chest normal Resp normal respiratory effort Cardio regular rate GI soft to palpation and non-tender GI Narrative: gravid Inspection: gravid external exam normal Manual OB Exam: estimated gestational size appropriate, presentation cephalic, dilated, effaced and station Extremity normal to inspection General Extremity: Negative for edema Skin no rashes or lesions noted Neuro no focal motor deficits and deep tendon reflexes 2+ bilaterally Motor Exam: strength 5/5 throughout and clonus absent Psych mental status grossly normal Labs Labs Labs: Blood Type O POSITIVE Antibody Screen NEGATIVE Hct 28.6 % (37-47) L Hgb 10.0 g/dL (12.0-15.0) L Obstetrics Ultrasound Syphilis Total Ab Non-reactive VZV IgG Antibody 219 index (Immune >165) Rubella IgG Antibody Equiv (Nonreactive) Hep Bs Antigen Non-Reactive (Nonreactive) Hepatitis C Antibody Non-Reactive (Nonreactive) Chlamydia DNA (SHARMILA) Negative (Negative) N.gonorrhoeae DNA (SHARMILA) Negative (Negative) HIV 1&2 Antibody Non-Reactive (Nonreactive) Glucose 1 Hr 50 gm 132 mg/dL (70-140) Assessment & Plan (1) Uterine size-date discrepancy, third trimester: COMMENT: nl growth and lakia (2) GBS (group B Streptococcus carrier), +RV culture, currently : COMMENT: PCN in labor (3) Anemia affecting : (4) Rubella non-immune status, antepartum: COMMENT: offer MMR PP (5) Supervision of high-risk : QUALIFIERS: Trimester: second trimester Qualified Code(s): O09.92 - Supervision of high risk , unspecified, second trimester COMMENT: PRR , ESTELA 05/11/24, girl [place] (6) : QUALIFIERS: Weeks of gestation: 40 weeks Qualified Code(s): Z3A.40 - 40 weeks gestation of COMMENT: NIPT low risk, carrier neg. , normal anatomy (7) Asthma: COMMENT: moderate persistent, needs to establish with PCP, will start on daily budesonide. albuterol rescue. (8) Encounter for induction of labor: (9) Post-dates : PLAN: Plan Patient presents IOL, plan management for with pit fb. Pain management: plans epidural. GBS pos plan pcn. Management of any complications: none I have reviewed the [facility] and made any clinically relevant updates. 05/16/24 0829 Cosigner Signature (if applicable): CC: Dr. Lyla Taylor MD; No Primary Care Physician~ Signed [facility]04-02-2025 Radiology Diagnostic study note [facility] Imaging Services [address] [place], [place] [address] OB Limited With Biometrics MR#: [id number] Acct: [id number] Name: EFRAIN VARGAS Rep #: [id number] : 2000 F 24 From: Narciso rahman Afuwveronica CRANE PCP: Care Physician,No Primary Status: REG CLI Study:OB Limited With Biometrics Date of Exam : 05/09/24 Exam# [id number] Ordering Dr: Lyla Khoury MD PROCEDURE: OB LIMITED WITH BIOMETRICS 05/09/2024 REASON FOR EXAM: DECREASE IN FUNDAL HEIGHT TODAY AT OB APPT TECHNIQUE: High resolution obstetric ultrasound performed using a 2D transducer. Standard views obtained, including biometry, anatomy survey, and Doppler studies. COMPARISON: None FINDINGS Number: 1 Position: Vertex Placental Position: Anterior Placental Abnormalities: No evidence of previa. DIMENSIONS: Biparietal Diameter: 8.6 cm/34 weeks 6 days Head Circumference: 32.3 cm/36 weeks 4 days Abdominal Circumference: 35.6 cm/39 weeks 4 days Femur Length: 7.4 cm/37 weeks 5 days ESTIMATED WEIGHT: 3456 g ESTIMATED WEIGHT PERCENTILE (24+ weeks): 37% ESTIMATED GESTATIONAL AGE: Baseline: 40 weeks 0 days By Ultrasound: 37 weeks 1 day ESTIMATED DATE OF DELIVERY: Baseline: 05/09/2024 By Ultrasound: 05/29/2024 BIOPHYSICAL ASSESSMENT: Amniotic Fluid Volume: Subjectively normal. Amniotic Fluid Index: 9.7 (8-24 cm normal range) Cardiac Motion: 143 beats per minute. (Average) Trunk and Limb Motion: Present. MATERNAL ANATOMY: Adnexa: Neither maternal ovary is successfully identified. Cervical Length (if measured): Not clearly visualized. US/OB Limited With Biometrics IMPRESSION: Single viable intrauterine fetus with a gestational age of 37 weeks 1 day and ESTELA of 05/29/2024. Reading Location: [facility] CC: Dr. Lyla Taylor MD; No Primary Care Physician ~ [employer]: Signed [facility]02-05-2025 Evaluation note* Diagnosis Onset Date Resolution Status Admit Date Anemia affecting acute March 14, 2024 10:59am Asthma acute March 14, 2024 10:59am inactive March 14, 2024 10:59am Rubella non-immune status, antepartum inactive March 14 10:59am Supervision of high-risk inactive March 14 10:59am Anemia affecting acute March 30, 2024 12:58pm Asthma acute March 30, 2024 12:58pm inactive March 30, 2024 12:58pm Rubella non-immune status, antepartum inactive March 30 12:58pm Supervision of high-risk inactive March 30 12:58pm Anemia affecting acute April 12, 2024 10:18am Asthma acute April 12 10:18am inactive April 12 10:18am Rubella non-immune status, antepartum inactive April 12, 2024 10:18am Supervision of high-risk inactive April 12, 2024 10:18am Anemia affecting acute April 19, 2024 11:27am Asthma acute April 19 11:27am GBS (group B Streptococcus carrier), +RV culture, currently inactive April 19 11:27am inactive April 19 11:27am Rubella non-immune status, antepartum inactive April 19, 2024 11:27am Supervision of high-risk inactive April 19, 2024 11:27am Anemia affecting acute April 25, 2024 9:57am Asthma acute April 25 9:57am GBS (group B Streptococcus carrier), +RV culture, currently inactive April 25 9:57am inactive April 25 9:57am Rubella non-immune status, antepartum inactive April 25, 2024 9:57am Supervision of high-risk inactive April 25, 2024 9:57am Anemia affecting acute May 01, 2024 10:03am Asthma acute May 01 10:03am GBS (group B Streptococcus carrier), +RV culture, currently inactive May 01, 2 025 10:03am inactive May 01 10:03am Rubella non-immune status, antepartum inactive May 01, 2024 10:03am Supervision of high-risk inactive May 01, 2024 10:03am Anemia affecting acute May 09, 2024 1:50pm Asthma acute May 09 1:50pm GBS (group B Streptococcus carrier), +RV culture, currently inactive May 09 1:50pm inactive May 09 1:50pm Rubella non-immune status, antepartum inactive May 09, 2024 1:50pm Supervision of high-risk inactive May 09, 2024 1:50pm Uterine size-date discrepancy, third trimester inactive May 1:50pm Anemia affecting acute May 16, 2024 7:00am Asthma acute May 16 7:00am Vaginal delivery acute May 7:00am GBS (group B Streptococcus carrier), +RV culture, currently inactive May 16 7:00am inactive May 16 7:00am Rubella non-immune status, antepartum inactive May 16, 2024 7:00am Supervision of high-risk inactive May 16, 2024 7:00am Uterine size-date discrepancy, third trimester inactive May 7:00am Encounter for induction of labor deleted May 16, 2024 7:00am Post-dates deleted 2024 7:00am Routine Follow-Up noneact betty June 28, 2024 1:54pm [facility] Work Phone: 1(546) 245-534812-13-2024 Evaluation note* Diagnosis Onset Date Resolution Status Admit Date Asthma acute January 20, 2024 3:31pm acute January 20, 2024 3:31pm Rubella non-immune status, antepartum acute January 19, 2 024 3:31pm Supervision of high-risk acute January 19, 2 024 3:31pm acute February 13, 2 025 9:50am Rubella non-immune status, antepartum acute February 13 9:50am Supervision of high-risk acute February 13 9:50am Anemia affecting acute March 14, 2024 10:59am Asthma acute March 14, 2024 10:59am acute March 14, 2024 10:59am Rubella non-immune status, antepartum acute March 14 10:59am Supervision of high-risk acute March 14 10:59am Anemia affecting acute March 30, 2024 12:58pm Asthma acute March 30, 2024 12:58pm acute March 30, 2024 12:58pm Rubella non-immune status, antepartum acute March 30 12:58pm Supervision of high-risk acute March 30 12:58pm Anemia affecting acute April 12, 2024 10:18am Asthma acute April 12 10:18am acute April 12 10:18am Rubella non-immune status, antepartum acute April 12, 2024 10:18am Supervision of high-risk acute April 12, 2024 10:18am Anemia affecting acute April 19, 2024 11:27am Asthma acute April 19 11:27am GBS (group B Streptococcus carrier), +RV culture, currently acute April 19 11:27am acute April 19 11:27am Rubella non-immune status, antepartum acute April 19, 2024 11:27am Supervision of high-risk acute April 19, 2024 11:27am [facility] Work Phone: 1([phone]) 658-713912-13-2024 Evaluation note* Diagnosis Onset Date Resolution Status Admit Date Asthma acute January 20, 2024 3:31pm acute January 20, 2024 3:31pm Rubella non-immune status, antepartum acute January 19, 024 3:31pm Supervision of high-risk acute January 19 024 3:31pm acute February 13 9:50am Rubella non-immune status, antepartum acute February 13 9:50am Supervision of high-risk acute February 13 9:50am Anemia affecting acute March 14, 2024 10:59am Asthma acute March 14, 2024 10:59am acute March 14, 2024 10:59am Rubella non-immune status, antepartum acute March 14 10:59am Supervision of high-risk acute March 14 10:59am Anemia affecting acute March 30, 2024 12:58pm Asthma acute March 30, 2024 12:58pm acute March 30, 2024 12:58pm Rubella non-immune status, antepartum acute March 30 12:58pm Supervision of high-risk acute March 30 12:58pm Anemia affecting acute April 12, 2024 10:18am Asthma acute April 12 10:18am acute April 12 10:18am Rubella non-immune status, antepartum acute April 12, 2024 10:18am Supervision of high-risk acute April 12, 2024 10:18am Anemia affecting acute April 19, 2024 11:27am Asthma acute April 19 11:27am GBS (group B Streptococcus carrier), +RV culture, currently acute April 19 11:27am acute April 19 11:27am Rubella non-immune status, antepartum acute April 19, 2024 11:27am Supervision of high-risk acute April 19, 2024 11:27am Anemia affecting acute April 25, 2024 9:57am Asthma acute April 25 9:57am GBS (group B Streptococcus carrier), +RV culture, currently acute April 25 9:57am acute April 25 9:57am Rubella non-immune status, antepartum acute April 25, 2024 9:57am Supervision of high-risk acute April 25, 2024 9:57am Anemia affecting acute May 01, 2024 10:03am Asthma acute May 01 10:03am GBS (group B Streptococcus carrier), +RV culture, currently acute May 01 025 10:03am acute May 01 10:03am Rubella non-immune status, antepartum acute May 01, 2024 10:03am Supervision of high-risk acute May 01, 2024 10:03am [facility] Work Phone: 1(835) 500-221112-13-2024 Evaluation note* Diagnosis Onset Date Resolution Status Admit Date Asthma acute January 20, 2024 3:31pm acute January 20, 2024 3:31pm Rubella non-immune status, antepartum acute January 19, 2 024 3:31pm Supervision of high-risk acute January 19, 2 024 3:31pm acute February 13, 025 9:50am Rubella non-immune status, antepartum acute February 13 9:50am Supervision of high-risk acute February 13 9:50am Anemia affecting acute March 14, 2024 10:59am Asthma acute March 14, 2024 10:59am acute March 14, 2024 10:59am Rubella non-immune status, antepartum acute March 14 10:59am Supervision of high-risk acute March 14 10:59am Anemia affecting acute March 30, 2024 12:58pm Asthma acute March 30, 2024 12:58pm acute March 30, 2024 12:58pm Rubella non-immune status, antepartum acute March 30, 025 12:58pm Supervision of high-risk acute March 30, 025 12:58pm Anemia affecting acute April 12, 2024 10:18am Asthma acute April 12 10:18am acute April 12 10:18am Rubella non-immune status, antepartum acute April 12, 2024 10:18am Supervision of high-risk acute April 12, 2024 10:18am Anemia affecting acute April 19, 2024 11:27am Asthma acute April 19 11:27am GBS (group B Streptococcus carrier), +RV culture, currently acute April 19 025 11:27am acute April 19 11:27am Rubella non-immune status, antepartum acute April 19, 2024 11:27am Supervision of high-risk acute April 19, 2024 11:27am Anemia affecting acute April 25, 2024 9:57am Asthma acute April 25 9:57am GBS (group B Streptococcus carrier), +RV culture, currently acute April 25, 025 9:57am acute April 25 9:57am Rubella non-immune status, antepartum acute April 25, 2024 9:57am Supervision of high-risk acute April 25, 2024 9:57am Anemia affecting acute May 01, 2024 10:03am Asthma acute May 01 10:03am GBS (group B Streptococcus carrier), +RV culture, currently acute May 01, 025 10:03am acute May 01 10:03am Rubella non-immune status, antepartum acute May 01, 2024 10:03am Supervision of high-risk acute May 01, 2024 10:03am Anemia affecting acute May 09, 2024 1:50pm Asthma acute May 09 1:50pm GBS (group B Streptococcus carrier), +RV culture, currently acute May 09 1:50pm acute May 09 1:50pm Rubella non-immune status, antepartum acute May 09, 2024 1:50pm Supervision of high-risk acute May 09, 2024 1:50pm Uterine size-date discrepanc y, third trimester acute May 09, 2024 1:50pm [facility] Work Phone: 1(637) 852-744212-13-2024 Evaluation note* Diagnosis Onset Date Resolution Status Admit Date Asthma acute January 20, 2024 3:31pm acute January 20, 2024 3:31pm Rubella non-immune status, antepartum acute January 19, 2 024 3:31pm Supervision of high-risk acute January 19, 2 024 3:31pm acute February 13, 2 025 9:50am Rubella non-immune status, antepartum acute February 13 9:50am Supervision of high-risk acute February 13 9:50am Anemia affecting acute March 14, 2024 10:59am Asthma acute March 14, 2024 10:59am acute March 14, 2024 10:59am Rubella non-immune status, antepartum acute March 14 10:59am Supervision of high-risk acute March 14 10:59am Anemia affecting acute March 30, 2024 12:58pm Asthma acute March 30, 2024 12:58pm acute March 30, 2024 12:58pm Rubella non-immune status, antepartum acute March 30, 2 025 12:58pm Supervision of high-risk acute March 30, 2 025 12:58pm Anemia affecting acute April 12, 2024 10:18am Asthma acute April 12 10:18am acute April 12 10:18am Rubella non-immune status, antepartum acute April 12, 2024 10:18am Supervision of high-risk acute April 12, 2024 10:18am Anemia affecting acute April 19, 2024 11:27am Asthma acute April 19 11:27am GBS (group B Streptococcus carrier), +RV culture, currently acute April 19, 025 11:27am acute April 19 11:27am Rubella non-immune status, antepartum acute April 19, 2024 11:27am Supervision of high-risk acute April 19, 2024 11:27am Anemia affecting acute April 25, 2024 9:57am Asthma acute April 25 9:57am GBS (group B Streptococcus carrier), +RV culture, currently acute April 25 025 9:57am acute April 25 9:57am Rubella non-immune status, antepartum acute April 25, 2024 9:57am Supervision of high-risk acute April 25, 2024 9:57am Anemia affecting acute May 01, 2024 10:03am Asthma acute May 01 10:03am GBS (group B Streptococcus carrier), +RV culture, currently acute May 01, 025 10:03am acute May 01 10:03am Rubella non-immune status, antepartum acute May 01, 2024 10:03am Supervision of high-risk acute May 01, 2024 10:03am Anemia affecting acute May 09, 2024 1:50pm Asthma acute May 09 1:50pm GBS (group B Streptococcus carrier), +RV culture, currently acute May 09 1:50pm acute May 09 1:50pm Rubella non-immune status, antepartum acute May 09, 2024 1:50pm Supervision of high-risk acute May 09, 2024 1:50pm Uterine size-date discrepanc y, third trimester acute May 09, 2024 1:50pm Anemia affecting acute May 16, 2024 7:00am Asthma acute May 16 7:00am Encounter for induction of labor acute May 16, 2024 7:00am GBS (group B Streptococcus carrier), +RV culture, currently acute May 16 7:00am Post-dates acute Apri 2024 7:00am acute May 16 7:00am Rubella non-immune status, antepartum acute May 16, 2024 7:00am Supervision of high-risk acute May 16, 2024 7:00am Uterine size-date discrepanc y, third trimester acute May 16, 2024 7:00am Vaginal delivery acute May 7:00am [facility] Work Phone: [phone] 807-198104-16-2024 History of Present illness Narrative* Asiya Pressley APRN.EMERGENCY DISPATCHER - 05/24/2023 7:39 PM EDT This note was created using NoteWriter. Subjective Efrain Alfaro is a 23 year old female. 23 year old female with PMH asthma presents for ear pain. Acute onset 3 to 4 days Started as an itching Now has progressed to fullness and uncomfortable Denies nasal, eye, throat complaints. Denies cough Denies URI sx Denies skin rash or lesions. Has used left over ear drops, without relief Denies tobacco usage. The history is provided by the patient. No business services analyst was used. Ear Pain This is a new problem. The current episode started in the past 7 days. The problem occurs constantly. The problem has been gradually worsening. Pertinent negatives include no abdominal pain, anorexia, arthralgias, change in bowel habit, chest pain, chills, congestion, coughing, diaphoresis, fatigue, fever, headaches, joint swelling, myalgias, nausea, neck pain, numbness, rash, sore throat, swollen glands, urinary symptoms, vertigo, visual change, vomiting or weakness. Nothing aggravates the symptoms. She has tried nothing for the symptoms. The treatment provided no relief. No past medical history on file. No past surgical history on file. ALLERGIES Nystatin MEDICATIONS amoxicillin (AMOXIL) 875 mg tablet Take 1 tablet by mouth two times a day for 7 days. No family history on file. Social History Tobacco Use Smoking status: Never Passive exposure: Never Smokeless tobacco: Never Review of Systems Constitutional: Negative for chills, diaphoresis, fatigue and fever. HENT: Positive for ear discharge. Negative for congestion and sore throat. Eyes: Negative for pain, discharge and itching. Respiratory: Negative for apnea, cough, choking and chest tightness. Cardiovascular: Negative for chest pain. Gastrointestinal: Negative for abdominal pain, anorexia, change in bowel habit, diarrhea, nausea and vomiting. Musculoskeletal: Negative for arthralgias, joint swelling, myalgias and neck pain. Skin: Negative for color change, pallor and rash. Allergic/Immunologic: Negative for environmental allergies, food allergies and immunocompromised state. Neurological: Negative for dizziness, vertigo, facial asymmetry, weakness, numbness and headaches. Hematological: Negative for adenopathy. Does not bruise/bleed easily. Psychiatric/Behavioral: Negative for agitation and behavioral problems. Objective BP 115/73 Pulse 79 Temp 37.1 C (98.7 F) Resp 18 Wt 63.7 kg (140 lb 6.9 oz) LMP 05/04/2023(Exact Date) SpO2 98% Physical Exam Vitals and nursing note reviewed. Constitutional: General: She is not in acute distress. Appearance: Normal appearance. She is normal weight. She is not ill-appearing, toxic-appearing or diaphoretic. HENT: Head: Normocephalic and atraumatic. Right Ear: Ear canal and external ear normal. Left Ear: Ear canal and external ear normal. Ears: Comments: Left TM erythematous and bulging Nose: Nose normal. No congestion or rhinorrhea. Mouth/Throat: Mouth: Mucous membranes are moist. Pharynx: No oropharyngeal exudate or posterior oropharyngeal erythema. Eyes: General: Right eye: No discharge. Left eye: No discharge. Extraocular Movements: Extraocular movements intact. Conjunctiva/sclera: Conjunctivae normal. Pupils: Pupils are equal, round, and reactive to light. Cardiovascular: Rate and Rhythm: Normal rate and regular rhythm. Pulses: Normal pulses. Heart sounds: Normal heart sounds. No murmur heard. No friction rub. Pulmonary: Effort: Pulmonary effort is normal. No respiratory distress. Breath sounds: Normal breath sounds. No stridor. No wheezing, rhonchi or rales. Chest: Chest wall: No tenderness. Abdominal: General: Abdomen is flat. There is no distension. Palpations: Abdomen is soft. There is no mass. Tenderness: There is no abdominal tenderness. There is no right CVA tenderness, left CVA tenderness, guarding or rebound. Hernia: No hernia is present. Musculoskeletal: General: No swelling, tenderness, deformity or signs of injury. Normal range of motion. Cervical back: Normal range of motion and neck supple. No rigidity. Right lower leg: No edema. Left lower leg: No edema. Lymphadenopathy: Cervical: Cervical adenopathy present. Skin: General: Skin is warm and dry. Coloration: Skin is not jaundiced or pale. Findings: No bruising, erythema, lesion or rash. Neurological: General: No focal deficit present. Mental Status: She is alert and oriented to person, place, and time. Cranial Nerves: No cranial nerve deficit. Sensory: No sensory deficit. Motor: No weakness. Coordination: Coordination normal. Gait: Gait normal. Psychiatric: Mood and Affect: Mood normal. Behavior: Behavior normal. Thought Content: Thought content normal. Judgment: Judgment normal. Assessment and Plan ASSESSMENT/PLAN: 1. Acute otitis media, left - ICD9: 382.9, ICD10: H66.92 - Will begin treatment with as per antibiotic as written, see orders - The patient should also be given OTC cough and cold meds as needed, warm salt water gargles, throat lozenges and/or OTC throat spray as needed, and nasal saline gtts and suction prn for the first 5-7 days of treatment. - Supportive care with plenty of fluids, rest, and analgesia prn. - Follow up in 3-5 days if symptoms persist or worsen. Asiya Pressley APRN.SMILEY [facility] [place] History of Present illness Narrative* Chester Choudhary APRN.CNP - 10/17/2022 11:02 AM EDT Images from the original note were not included. Subjective HPI Nontoxic-appearing female presents urgent care chief complaint rash. Duration of symptoms 1 day. Associated symptoms pruritic rash. Rash started last night. Noticed rash behind her legs has since spread to back and face. Has not used any OTC medication. No recent lifestyle or environmental changes.Overall feels well. Denies chance of . Is not breast-feeding. Denies any fever body aches chills productive cough chest pain shortness of breath pleuritic pain hemoptysis nausea vomiting abdominal pain change in bowel or bladder habits. Past medical history prescription medication use and allergies reviewed. .Patient presents with: Rash: itching x last night History reviewed. No pertinent past medical history. History reviewed. No pertinent surgical history. ALLERGIES Nystatin MEDICATIONS No prescriptions on file. History reviewed. No pertinent family history. Social History Tobacco Use Smoking status: Never Passive exposure: Never Smokeless tobacco: Never BP 102/62 Pulse 86 Temp 36.6 C (97.8 F) Resp 16 Wt 62.1 kg (137 lb) SpO2 99% Review of Systems Constitutional: Negative for chills, fever and malaise/fatigue. HENT: Negative for congestion, ear discharge, ear pain, sinus pain and sore throat. Eyes: Negative for blurred vision, pain, discharge and redness. Respiratory: Negative for cough, hemoptysis, sputum production, shortness of breath, wheezing and stridor. Cardiovascular: Negative for chest pain. Gastrointestinal: Negative for abdominal pain, diarrhea, nausea and vomiting. Musculoskeletal: Negative for myalgias. Skin: Positive for itching and rash. Neurological: Negative for dizziness and headaches. Objective Physical Exam Constitutional: General: She is not in acute distress. Appearance: She is not toxic-appearing. HENT: Head: Normocephalic. Nose: Nose normal. Eyes: Pupils: Pupils are equal, round, and reactive to light. Cardiovascular: Rate and Rhythm: Normal rate. Pulmonary: Effort: Pulmonary effort is normal. No respiratory distress. Musculoskeletal: Cervical back: Normal range of motion. Skin: General: Skin is warm and dry. Comments: Urticaric erythematous base rash noted highlighted areas. Rash is blanching. No desquamation of skin. No mucosal membrane involvement. Spares palms of hands. Neurological: General: No focal deficit present. Mental Status: She is alert. ASSESSMENT/PLAN: 1. Rash - ICD9: 782.1, ICD10: R21 Nontoxic-appearing. Hemodynamically stable. Diagnosis rash. Contact dermatitis versus urticaria. Treat with antihistamines and prednisone burst. Red flags proper elevation discussed. Patient was educated on supportive therapies. Patient will follow up with primary care provider as needed. Patient was instructed to immediately proceed to emergency room for any new, worsening, or symptoms lasting longer than anticipated. The patient's clinical presentation is otherwise unremarkable at this time. Based on exam and clinical finding, the patient is stable for discharge. Plan of care was discussed with patient. Patient verbalizes understanding and agrees to plan of care. This note was generated using [employer] software. It may contain errors in wording, punctuation, or spelling. Chester Choudhary APRN.SMILEY documented [facility]* Diagnosis Rash- Primary Rash and other nonspecific skin eruption documented in this encounter [facility]* Diagnosis Acute otitis media, left- Primary Unspecified otitis media documented in this encounter [facility] noteNo assessment information availableForks Community [facility] Phys[facility] Work Phone: Evaluation note* Diagnosis Mastitis in female- Primary Inflammatory disease of breast documented in this encounter [facility] [place] for referral (narrative)No reason for referral information availableWAdena Regional Medical Center Work Phone: Chief Complaint and Reason for Visit Chief Complaint Admit Date NEW OB LABS September 15, 2023 3:2 2pm Chief Complaint Admit Date NEW OB LABS September 15, 2023 3:2 2pm Z33.1 September 26, 2023 8: 27am Chief Complaint Admit Date NEW OB LABS September 15, 2023 3:2 2pm Z33.1 September 26, 2023 8: 27am RE SCAN October 12, 2023 1:48pm Chief Complaint Admit Date 24 wk ob January 20, 2024 3:31pm 28 wk ob 2024 9: 50am 30 WK OB March 02, 2024 2 :11pm 32 WK OB March 14, 2024 1 0:59am 34 WK OB March 30, 2024 12:58pm 36 WK OB April 12, 2024 10:1 8am 37 WK OB April 19, 2024 11: 27am Reason for Visit Admit Date Asthma January 20, 2024 3:31pm January 20, 2024 3:31pm Rubella non-immune status, antepartum De cember 2023 3:31pm Supervision of high-risk Decem alfreda 2023 3:31pm 2024 9: 50am Rubella non-immune status, antepartum Ja nuary 2024 9:50am Supervision of high-risk Janua ry 2024 9:50am Anemia affecting March 14, 2024 10:59am Asthma March 14, 2024 1 0:59am March 14, 2024 1 0:59am Rubella non-immune status, antepartum Fe bruary 2024 10:59am Supervision of high-risk Febru gary 2024 10:59am Anemia affecting March 12:58pm Asthma March 30, 2024 12:58pm March 30, 2024 12:58pm Rubella non-immune status, antepartum Fe ary 2024 12:58pm Supervision of high-risk Febru gary2024 12:58pm Anemia affecting April 12 10:18am Asthma April 12, 2024 10:1 8am April 12, 2024 10:1 8am Rubella non-immune status, antepartum [facility] 2024 10:18am Supervision of high-risk April 12, 2024 10:18am Anemia affecting April 19, 025 11:27am Asthma April 19, 2024 11: 27am GBS (group B Streptococcus c arrier), +RV culture, currently April 19, 2024 11:27am April 19, 2024 11: 27am Rubella non-immune status, antepartum [facility] 2024 11:27am Supervision of high-risk April 19, 2024 11:27am Chief Complaint Admit Date 24 wk ob January 20, 2024 3:31pm 28 wk ob 2024 9: 50am 30 WK OB March 02, 2024 2 :11pm 32 WK OB March 14, 2024 1 0:59am 34 WK OB March 30, 2024 12:58pm 36 WK OB April 12, 2024 10:1 8am 37 WK OB April 19, 2024 11: 27am 38 WK OB April 25, 2024 9:5 7am 39 WK OB May 01, 2024 10: 03am Reason for Visit Admit Date Asthma January 20, 2024 3:31pm January 20, 2024 3:31pm Rubella non-immune status, antepartum De cember 2023 3:31pm Supervision of high-risk Decem alfreda 2023 3:31pm 2024 9: 50am Rubella non-immune status, antepartum Ja nuary 2024 9:50am Supervision of high-risk Janua ry 2024 9:50am Anemia affecting March 14, 2024 10:59am Asthma March 14, 2024 1 0:59am March 14, 2024 1 0:59am Rubella non-immune status, antepartum Fe bruary 2024 10:59am Supervision of high-risk Febru gary2024 10:59am Anemia affecting March 12:58pm Asthma March 30, 2024 12:58pm March 30, 2024 12:58pm Rubella non-immune status, antepartum Fe bruary 2024 12:58pm Supervision of high-risk Febru gary 2024 12:58pm Anemia affecting April 12 10:18am Asthma April 12, 2024 10:1 8am April 12, 2024 10:1 8am Rubella non-immune status, antepartum [facility] 2024 10:18am Supervision of high-risk April 12, 2024 10:18am Anemia affecting April 19 11:27am Asthma April 19, 2024 11: 27am GBS (group B Streptococcus c arrier), +RV culture, currently April 19, 2024 11:27am April 19, 2024 11: 27am Rubella non-immune status, antepartum [facility] 2024 11:27am Supervision of high-risk April 19, 2024 11:27am Anemia affecting April 25 025 9:57am Asthma April 25, 2024 9:5 7am GBS (group B Streptococcus c arrier), +RV culture, currently April 25, 2024 9:57am April 25, 2024 9:5 7am Rubella non-immune status, antepartum [facility] 2024 9:57am Supervision of high-risk April 25, 2024 9:57am Anemia affecting May 01, 025 10:03am Asthma May 01, 2024 10: 03am GBS (group B Streptococcus c arrier), +RV culture, currently May 01, 2024 10:03am May 01, 2024 10: 03am Rubella non-immune status, antepartum [facility] 2024 10:03am Supervision of high-risk May 01, 2024 10:03am Chief Complaint Admit Date 24 wk ob January 20, 2024 3:31pm 28 wk ob 2024 9: 50am 30 WK OB March 02, 2024 2 :11pm 32 WK OB March 14, 2024 1 0:59am 34 WK OB March 30, 2024 12:58pm 36 WK OB April 12, 2024 10:1 8am 37 WK OB April 19, 2024 11: 27am 38 WK OB April 25, 2024 9:5 7am 39 WK OB May 01, 2024 10: 03am 40 WK OB HAPPY DUE DATE! :) May 09, 2 025 1:50pm DECREASED MOVEMENT May 09, 2024 2:30pm Reason for Visit Admit Date Asthma January 20, 2024 3:31pm January 20, 2024 3:31pm Rubella non-immune status, antepartum De cember 2023 3:31pm Supervision of high-risk Decem alfreda 2023 3:31pm 2024 9: 50am Rubella non-immune status, antepartum Ja nuary 2024 9:50am Supervision of high-risk Janua 2024 9:50am Anemia affecting March 14, 2024 10:59am Asthma March 14, 2024 1 0:59am March 14, 2024 1 0:59am Rubella non-immune status, antepartum Fe bruary 2024 10:59am Supervision of high-risk Febru gary 2024 10:59am Anemia affecting March 12:58pm Asthma March 30, 2024 12:58pm March 30, 2024 12:58pm Rubella non-immune status, antepartum Fe bruary 2024 12:58pm Supervision of high-risk Febru gary 2024 12:58pm Anemia affecting April 12 10:18am Asthma April 12, 2024 10:1 8am April 12, 2024 10:1 8am Rubella non-immune status, antepartum [facility] 2024 10:18am Supervision of high-risk April 12, 2024 10:18am Anemia affecting April 19 11:27am Asthma April 19, 2024 11: 27am GBS (group B Streptococcus c arrier), +RV culture, currently April 19, 2024 11:27am April 19, 2024 11: 27am Rubella non-immune status, antepartum [facility] 2024 11:27am Supervision of high-risk April 19, 2024 11:27am Anemia affecting April 25 9:57am Asthma April 25, 2024 9:5 7am GBS (group B Streptococcus c arrier), +RV culture, currently April 25, 2024 9:57am April 25, 2024 9:5 7am Rubella non-immune status, antepartum [facility] 2024 9:57am Supervision of high-risk April 25, 2024 9:57am Anemia affecting May 01 10:03am Asthma May 01, 2024 10: 03am GBS (group B Streptococcus c arrier), +RV culture, currently May 01, 2024 10:03am May 01, 2024 10: 03am Rubella non-immune status, antepartum [facility] 2024 10:03am Supervision of high-risk May 01, 2024 10:03am Anemia affecting May 09 1:50pm Asthma May 09, 2024 1:50 pm GBS (group B Streptococcus c arrier), +RV culture, currently May 09, 2024 1:50pm May 09, 2024 1:50 pm Rubella non-immune status, antepartum Ap ril 2024 1:50pm Supervision of high-risk May 09, 2024 1:50pm Uterine size-date discrepancy, third tri mester May 09, 2024 1:50pm Chief Complaint Admit Date 24 wk ob January 20, 2024 3:31pm 28 wk ob 2024 9: 50am 30 WK OB March 02, 2024 2 :11pm 32 WK OB March 14, 2024 1 0:59am 34 WK OB March 30, 2024 12:58pm 36 WK OB April 12, 2024 10:1 8am 37 WK OB April 19, 2024 11: 27am 38 WK OB April 25, 2024 9:5 7am 39 WK OB May 01, 2024 10: 03am 40 WK OB HAPPY DUE DATE! :) May 09, 2 025 1:50pm DECREASED MOVEMENT May 09, 2024 2:30pm DECREASED MOVEMENT May 09, 2024 4:59pm VAG May 16, 2024 7:00 am INDUCTION May 16, 2024 8:28 am VAG May 17, 2024 7:1 1am VAG May 18, 2024 9:2 2am Reason for Visit Admit Date Asthma January 20, 2024 3:31pm January 20, 2024 3:31pm Rubella non-immune status, antepartum De cember 2023 3:31pm Supervision of high-risk Decem alfreda 2023 3:31pm 2024 9: 50am Rubella non-immune status, antepartum Ja nuary 2024 9:50am Supervision of high-risk Janua 2024 9:50am Anemia affecting March 14, 2024 10:59am Asthma March 14, 2024 1 0:59am March 14, 2024 1 0:59am Rubella non-immune status, antepartum Fe bruary 2024 10:59am Supervision of high-risk Febru gary 2024 10:59am Anemia affecting March 12:58pm Asthma March 30, 2024 12:58pm March 30, 2024 12:58pm Rubella non-immune status, antepartum Fe bruary 2024 12:58pm Supervision of high-risk Febru gary 2024 12:58pm Anemia affecting April 12 10:18am Asthma April 12, 2024 10:1 8am April 12, 2024 10:1 8am Rubella non-immune status, antepartum [facility] 2024 10:18am Supervision of high-risk April 12, 2024 10:18am Anemia affecting April 19 11:27am Asthma April 19, 2024 11: 27am GBS (group B Streptococcus c arrier), +RV culture, currently April 19, 2024 11:27am April 19, 2024 11: 27am Rubella non-immune status, antepartum [facility] 2024 11:27am Supervision of high-risk April 19, 2024 11:27am Anemia affecting April 25 9:57am Asthma April 25, 2024 9:5 7am GBS (group B Streptococcus c arrier), +RV culture, currently April 25, 2024 9:57am April 25, 2024 9:5 7am Rubella non-immune status, antepartum [facility] 2024 9:57am Supervision of high-risk April 25, 2024 9:57am Anemia affecting May 01 10:03am Asthma May 01, 2024 10: 03am GBS (group B Streptococcus c arrier), +RV culture, currently May 01, 2024 10:03am May 01, 2024 10: 03am Rubella non-immune status, antepartum [facility] 2024 10:03am Supervision of high-risk May 01, 2024 10:03am Anemia affecting May 09 1:50pm Asthma May 09, 2024 1:50 pm GBS (group B Streptococcus c arrier), +RV culture, currently May 09, 2024 1:50pm May 09, 2024 1:50 pm Rubella non-immune status, antepartum Ap 2024 1:50pm Supervision of high-risk May 09, 2024 1:50pm Uterine size-date discrepancy, third tri mester May 09, 2024 1:50pm Anemia affecting May 16 7:00am Asthma May 16, 2024 7:00 am Encounter for induction of labor May 162024 7:00am GBS (group B Streptococcus c arrier), +RV culture, currently May 16, 2024 7:00am Post-dates May 16, 2024 7:0 0am May 16, 2024 7:00 am Rubella non-immune status, antepartum Ap ril 2024 7:00am Supervision of high-risk May 16, 2024 7:00am Uterine size-date discrepancy, third tri mester May 16, 2024 7:00am Vaginal delivery May 16, 2024 7:00 am Chief Complaint Admit Date 32 WK OB March 14, 2024 1 0:59am 34 WK OB March 30, 2024 12:58pm 36 WK OB April 12, 2024 10:1 8am 37 WK OB April 19, 2024 11: 27am 38 WK OB April 25, 2024 9:5 7am 39 WK OB May 01, 2024 10: 03am 40 WK OB HAPPY DUE DATE! :) May 09, 1:50pm DECREASED MOVEMENT May 09, 2024 2:30pm DECREASED MOVEMENT May 09, 2024 4:59pm VAG May 16, 2024 7:00 am INDUCTION May 16, 2024 8:28 am VAG May 17, 2024 7:1 1am VAG May 18, 2024 9:2 2am visit (obstetrics) June 28, 2024 1:54pm Reason for Visit Admit Date Anemia affecting March 14, 2024 10:59am Asthma March 14, 2024 1 0:59am March 14, 2024 1 0:59am Rubella non-immune status, antepartum Fe 2024 10:59am Supervision of high-risk 2024 10:59am Anemia affecting March 12:58pm Asthma March 30, 2024 12:58pm March 30, 2024 12:58pm Rubella non-immune status, antepartum Fe bru2024 12:58pm Supervision of high-risk u gary2024 12:58pm Anemia affecting April 12 10:18am Asthma April 12, 2024 10:1 8am April 12, 2024 10:1 8am Rubella non-immune status, antepartum [facility] 2024 10:18am Supervision of high-risk April 12, 2024 10:18am Anemia affecting April 19 025 11:27am Asthma April 19, 2024 11: 27am GBS (group B Streptococcus c arrier), +RV culture, currently April 19, 2024 11:27am April 19, 2024 11: 27am Rubella non-immune status, antepartum [facility] 2024 11:27am Supervision of high-risk April 19, 2024 11:27am Anemia affecting April 25 9:57am Asthma April 25, 2024 9:5 7am GBS (group B Streptococcus c arrier), +RV culture, currently April 25, 2024 9:57am April 25, 2024 9:5 7am Rubella non-immune status, antepartum [facility] 2024 9:57am Supervision of high-risk April 25, 2024 9:57am Anemia affecting May 01 10:03am Asthma May 01, 2024 10: 03am GBS (group B Streptococcus c arrier), +RV culture, currently May 01, 2024 10:03am May 01, 2024 10: 03am Rubella non-immune status, antepartum [facility] 2024 10:03am Supervision of high-risk May 01, 2024 10:03am Anemia affecting May 09 1:50pm Asthma May 09, 2024 1:50 pm GBS (group B Streptococcus c arrier), +RV culture, currently May 09, 2024 1:50pm May 09, 2024 1:50 pm Rubella non-immune status, antepartum Ap 2024 1:50pm Supervision of high-risk May 09, 2024 1:50pm Uterine size-date discrepancy, third tri mester May 09, 2024 1:50pm Anemia affecting May 16 7:00am Asthma May 16, 2024 7:00 am Vaginal delivery May 16, 2024 7:00 am GBS (group B Streptococcus c arrier), +RV culture, currently May 16, 2024 7:00am May 16, 2024 7:00 am Rubella non-immune status, antepartum Ap 2024 7:00am Supervision of high-risk May 16, 2024 7:00am Uterine size-date discrepancy, third tri mester May 16, 2024 7:00am Encounter for induction of labor May [id number] 7:00am Post-dates May 16, 2024 7:0 0am Routine Follow-Up June 28 1:54pm Advance Directives No Advanced Directives Records Found Advance Directive Response Recorded Date/ Time Does Patient Have Advance Directives? No March 23, 2021 8:51pm Code Status Full Code March 23 8:51pm Advance Directive Response Recorded Date/ Time Living Will No May 16, 2024 7:58am Do you have a Healthcare Power of Frame Operator? No May 16, 2024 7:58am Summary Purpose Family History No Family History Records Found Relationship Condition Age at Onset Recorded Date/T radha grandmother Malignant neoplasm Unknown Normal stillborn Unknown Additional Source Comments Source Comments (unrecognize d section and content) In the event this informatio n is protected by the Federal Confidentiality of Alcohol and Drug Abuse Patient Records regulations: The Federal rules restrict any use of the information to criminally investigate or prosecute any alcohol or drug abuse patient.[facility] [place] the event this information is protected by the Federal Confidentiality of Alcohol and Drug Abuse Patient Records regulations: The Federal rules restrict any use of the information to criminally investigate or prosecute any alcohol or drug abuse patient.[facility] [place] the event this information is protected by the Federal Confidentiality of Alcohol and Drug Abuse Patient Records regulations: The Federal rules restrict any use of the information to criminally investigate or prosecute any alcohol or drug abuse patient.[facility] [place] Reason for Visit (unrecogniz ed section and content) Reason Comments Rash itching x last night Reason Comments Ear Pain L ear pain x4 days Reason Comments Breast Problem Left, breast, rednes s, pain, warmth, fever, body aches x 2 days Goals (unrecognized section and content) Goals may be documented in a n alternate sectionNo InformationGoals may be documented in an alternate sectionGoals may be documented in an alternate sectionGoals may be documented in an alternate sectionGoals may be documented in an alternate sectionGoals may be documented in an alternate sectionGoals may be documented in an alternate sectionGoals may be documented in an alternate sectionGoals may be documented in an alternate section Care Teams (unrecognized sec tion and content) Team Status: Active Member Role Status Dates LEILANI CHRISTIE DO Family Provider Active LEILANI CHRISTIE DO Primary Care Provider Active Team Status: Active Member Role Status Rosa CHRISTIE DO Primary Care Provider Active Start: September 15, 2023 RAVINDER INFANTE MD Attending Provider Active S tart: September 15, 2023 EMIGDIO BOJORQUEZ PA-C Referring Provider Active Start: September 15, 2023 Team Status: Inactive Member Role Status Dates LEILANI CHRISTIE DO Primary Care Provider Active Start: September 15, 2023 End: September 15, 2023 RAVINDER INFANTE MD Attending Provider Active S tart: September 15, 2023 End: September 15, 2023 EMIGDIO BOJORQUEZ PA-C Referring Provider Active Start: September 15, 2023 End: September 15, 2023 Team Status: Inactive Member Role Status Rosa CHRISTIE DO Primary Care Provider Active Start: September 26, 2023 End: September 26, 2023 RAVINDER INFANTE MD Attending Provider, Referring Provider Active Start: September 26, 2023 End: September 26, 2023 Team Status: Inactive Member Role Status Dates LEILANI CHRISTIE DO Primary Care Provider Active Start: October 12, 2023 End: October 12, 2023 EMIGDIO BOJORQUEZ PA-C Attending Prov ider, Referring Provider Active Start: October 12, 2023 End: October 12, 2023 Team Status: Active Member Role Status Dates No Primary Care Physician Primary Care Provider Active Team Status: Inactive Member Role Status Dates No Primary Care Physician Primary Care Provider Active Start: January 20, 2024 End: January 20, 2024 No Primary Care Physician Referring Provider Active Start: January 20, 2024 End: January 20, 2024 Dr. Keke Ruggiero DO Attending Provider Activ e Start: January 20, 2024 End: January 20, 2024 Team Status: Inactive Member Role Status Dates No Primary Care Physician Primary Care Provider Active Start: 2024 End: 2024 No Primary Care Physician Referring Provider Active Start: 2024 End: 2024 Brielle Delgado NP, WILLIAN-C Attending Provider Active Start: 2024 End: 2024 Team Status: Inactive Member Role Status Dates No Primary Care Physician Primary Care Provider Active Start: 2024 End: 2024 Dr. Keke Ruggiero DO Attending Provider Activ e Start: 2024 End: 2024 Dr. Keke Ruggiero DO Referring Provider Activ e Start: 2024 End: 2024 Team Status: Inactive Member Role Status Dates No Primary Care Physician Primary Care Provider Active Start: March 02, 2024 End: March 02, 2024 No Primary Care Physician Referring Provider Active Start: March 02, 2024 End: March 02, 2024 Мария Lowe CNM Attending Provider Active S tart: March 02, 2024 End: March 02, 2024 Team Status: Inactive Member Role Status Dates No Primary Care Physician Primary Care Provider Active Start: March 14, 2024 End: March 14, 2024 No Primary Care Physician Referring Provider Active Start: March 14, 2024 End: March 14, 2024 Dr. Lyla Taylor MD Attending Provider Active Start: March 14, 2024 End: March 14, 2024 Team Status: Inactive Member Role Status Dates No Primary Care Physician Primary Care Provider Active Start: March 30, 2024 End: March 30, 2024 No Primary Care Physician Referring Provider Active Start: March 30, 2024 End: March 30, 2024 Мария Lowe CNM Attending Provider Active S tart: March 30, 2024 End: March 30, 2024 Team Status: Inactive Member Role Status Dates No Primary Care Physician Primary Care Provider Active Start: March 30, 2024 End: March 30, 2024 Мария Lowe CNM Attending Provider Active S tart: March 30, 2024 End: March 30, 2024 Мария Lowe CNM Referring Provider Active S tart: March 30, 2024 End: March 30, 2024 Team Status: Inactive Member Role Status Dates No Primary Care Physician Primary Care Provider Active Start: April 12, 2024 End: April 12, 2024 No Primary Care Physician Referring Provider Active Start: April 12, 2024 End: April 12, 2024 Dr. Lyla Taylor MD Attending Provider Active Start: April 12, 2024 End: April 12, 2024 Team Status: Inactive Member Role Status Dates No Primary Care Physician Primary Care Provider Active Start: April 12, 2024 End: April 12, 2024 Dr. Lyla Taylor MD Attending Provider Active Start: April 12, 2024 End: April 12, 2024 Dr. Lyla Taylor MD Referring Provider Active Start: April 12, 2024 End: April 12, 2024 Team Status: Inactive Member Role Status Dates No Primary Care Physician Primary Care Provider Active Start: April 19, 2024 End: April 19, 2024 No Primary Care Physician Referring Provider Active Start: April 19, 2024 End: April 19, 2024 Dr. Keke Ruggiero DO Attending Provider Activ e Start: April 19, 2024 End: April 19, 2024 Team Status: Active Member Role Status Dates No Primary Care Physician Primary Care Provider Active Start: April 19, 2024 Dr. Keke Ruggiero DO Attending Provider Activ e Start: April 19, 2024 Dr. Keke Ruggiero DO Referring Provider Activ e Start: April 19, 2024 Team Status: Inactive Member Role Status Dates No Primary Care Physician Primary Care Provider Active Start: April 19, 2024 End: April 19, 2024 Dr. Keke Ruggiero DO Attending Provider Activ e Start: April 19, 2024 End: April 19, 2024 Dr. Keke Ruggiero , Referring Provider Activ e Start: April 19, 2024 End: April 19, 2024 Team Status: Inactive Member Role Status Dates No Primary Care Physician Primary Care Provider Active Start: April 25, 2024 End: April 25, 2024 No Primary Care Physician Referring Provider Active Start: April 25, 2024 End: April 25, 2024 Dr. Lyla Taylor MD Attending Provider Active Start: April 25, 2024 End: April 25, 2024 Team Status: Inactive Member Role Status Dates No Primary Care Physician Primary Care Provider Active Start: May 01, 2024 End: May 01, 2024 No Primary Care Physician Referring Provider Active Start: May 01, 2024 End: May 01, 2024 Мария Lowe CNM Attending Provider Active S tart: May 01, 2024 End: May 01, 2024 Team Status: Inactive Member Role Status Dates No Primary Care Physician Primary Care Provider Active Start: May 09, 2024 End: May 09, 2024 No Primary Care Physician Referring Provider Active Start: May 09, 2024 End: May 09, 2024 Dr. Lyla Taylor MD Attending Provider Active Start: May 09, 2024 End: May 09, 2024 Team Status: Inactive Member Role Status Dates No Primary Care Physician Primary Care Provider Active Start: May 09, 2024 End: May 09, 2024 Dr. Lyla Taylor MD Attending Provider Active Start: May 09, 2024 End: May 09, 2024 Dr. Lyla Taylor MD Referring Provider Active Start: May 09, 2024 End: May 09, 2024 Team Status: Active Member Role Status Dates No Primary Care Physician Primary Care Provider Active Start: May 09, 2024 Dr. Lyla Taylor MD Attending Provider Active Start: May 09, 2024 Dr. Lyla Taylor MD Referring Provider Active Start: May 09, 2024 Team Status: Active Member Role Status Dates No Primary Care Physician Primary Care Provider Active Start: May 09, 2024 Dr. Lyla Taylor MD Attending Provider Active Start: May 09, 2024 Dr. Lyla Taylor MD Referring Provider Active Start: May 09, 2024 Dr. Lyla Taylor MD Other Provider Active Start: May 09, 2024 Team Status: Inactive Member Role Status Dates No Primary Care Physician Primary Care Provider Active Start: May 16, 2024 End: May 18, 2024 Dr. Lyla Taylor MD Admit Provider Active Start: May 16, 2024 End: May 18, 2024 Dr. Lyla Taylor MD Attending Provider Active Start: May 16, 2024 End: May 18, 2024 Dr. Lyla Taylor MD Referring Provider Active Start: May 16, 2024 End: May 18, 2024 Team Status: Active Member Role Status Dates No Primary Care Physician Primary Care Provider Active Start: May 16, 2024 Dr. Lyla Taylor MD Admit Provider Active Start: May 16, 2024 Dr. Lyla Taylor MD Attending Provider Active Start: May 16, 2024 Dr. Lyla Taylor MD Referring Provider Active Start: May 16, 2024 Dr. Lyla Taylor MD Other Provider Active Start: May 16, 2024 Team Status: Active Member Role Status Dates No Primary Care Physician Primary Care Provider Active Start: May 17, 2024 Dr. Lyla Taylor MD Admit Provider Active Start: May 17, 2024 Dr. Lyla Taylor MD Referring Provider Active Start: May 17, 2024 Dr. Lyla Taylor MD Other Provider Active Start: May 17, 2024 Dr. Keke Ruggiero DO Attending Provider Activ e Start: May 17, 2024 Team Status: Active Member Role Status Dates No Primary Care Physician Primary Care Provider Active Start: May 18, 2024 Dr. Lyla Taylor MD Admit Provider Active Start: May 18, 2024 Dr. Lyla Taylor MD Referring Provider Active Start: May 18, 2024 Dr. Lyla Taylor MD Other Provider Active Start: May 18, 2024 Dr. Keke Ruggiero DO Attending Provider Activ e Start: May 18, 2024 Team Status: Inactive Member Role Status Dates No Primary Care Physician Primary Care Provider Active Start: June 28, 2024 End: June 28, 2024 No Primary Care Physician Referring Provider Active Start: June 28, 2024 End: June 28, 2024 Dr. Lyla Taylor MD Attending Provider Active Start: June 28, 2024 End: June 28, 2024 Team Status: Inactive Member Role Status Dates No Primary Care Physician Primary Care Provider Active Start: June 28, 2024 End: June 28, 2024 Dr. Lyla Taylor MD Attending Provider Active Start: June 28, 2024 End: June 28, 2024 Dr. Lyla Taylor MD Referring Provider Active Start: June 28, 2024 End: June 28, 2024 INFORMATION SOURCE (unrecogn ized section and content) DATE CREATED AUTHOR 11/11/2023 [facility] DATE CREATED AUTHOR AUTHOR'S ORGANIZ ATION 11/11/2023 [facility] DATE CREATED AUTHOR AUTHOR'S ORGANIZ ATION 12/17/2023 [facility] DATE CREATED AUTHOR AUTHOR'S ORGANIZ ATION 07/08/2024 [facility] DATE CREATED AUTHOR AUTHOR'S ORGANIZ ATION 07/12/2024 [facility] FOR RECORDS PERTAINING TO PATIENTS WHO ARE OR HAVE BEEN ENROLLED IN A CHEMICAL DEPENDENCY/SUBSTANCEABUSE PROGRAM, SOME INFORMATION MAY BE OMITTED. This clinical summary was aggregated from multiple sources. Caution should be exercised in using it in the provision of clinical care. This summary normalizes information from multiple sources, and as a consequence, information in this document may materially change the coding, format and clinical context of patient data. In addition, data may be omitted in some cases. CLINICAL DECISIONS SHOULD BE BASED ON THE PRIMARY CLINICAL RECORDS. [facility]. provides no warranty or guarantee of the accuracy or completeness of information in this document.
== END 2024-07-12 23:59 | disposition home or self-care (01) ==
LOC: LABSPEC 15:38
PROVIDERS: Referring Provider Obstetrics & Gynecology; Visit Provider Obstetrics & Gynecology
DX: R30.0 Dysuria (principal)
CPT/HCPCS: 87070; 87077; 87086; 87088; 87186; 87205